=== PATIENT | female | born 1940 | race Two or more races ===

== ENCOUNTER → 2020-08-10 10:04 | Outpatient (BNVA) | payer MEDICARE, SELFPAY | PROVIDERS: PCP Internal Medicine; Visit Provider Urology | DX: N20.0 Calculus of kidney (principal) | CPT/HCPCS: 99212 ==

== ENCOUNTER 2020-10-02 07:57 | Outpatient (REF) | payer MEDICARE, SELFPAY ==
[2020-10-02 11:44] LABS: Hematocrit 38.5 % (37-47); Hemoglobin 12.5 g/dl (12.0-16.0); Mean Corpuscular HGB Conc 32.5 g/dl (31.0-35.0); Mean Corpuscular Hemoglobin 28.3 pg (27.0-33.0); Mean Corpuscular Volume 87.3 fL (80-98); Mean Platelet Volume 12.3 fL (9.4-12.3); Platelet Count 210 X10*3/uL (160-400); Red Blood Count 4.41 X10*6/uL (4.20-5.50); Red Cell Distribution Width 13.7 % (11.0-16.0); White Blood Count 4.7 X10*3/uL (4.8-10.8)
[2020-10-02 12:12] LABS: Alanine Aminotransferase 60 U/L (0-31); Albumin Level 4.1 g/dL (3.5-5.0); Alkaline Phosphatase 84 U/L (39-117); Anion Gap 12 (12-20); Aspartate Amino Transferase 38 U/L (5-31); Bilirubin Total 0.5 mg/dL (0.0-1.0); Blood Urea Nitrogen 19 mg/dL (9-16); Calcium 9.4 mg/dL (8.4-10.2); Carbon Dioxide 27 mmol/L (22-29); Chloride 105 mmol/L (96-108); Estimated Glomerular Filt Rate > 60; Glucose Random 93 mg/dL (60-115); Sodium 140 mmol/L (135-145)
[2020-10-02 12:16] LABS: Vitamin D 25-OH Total 41.6 ng/mL (>30)
== END 2020-10-02 07:58 | disposition home or self-care (01) ==
LOC: HO.HMGCLDS 07:57
PROVIDERS: PCP Internal Medicine; Visit Provider Internal Medicine
DX: J44.9 Chronic obstructive pulmonary disease, unspecified (principal); I10 Essential (primary) hypertension; E55.9 Vitamin D deficiency, unspecified
CPT/HCPCS: 36415; 80053; 82306; 85027

== ENCOUNTER 2021-02-20 09:57 | Outpatient (REF) | payer OTHER, SELFPAY ==
--- NOTE | ~2021-02-20 | XR_ITS ---
EXAMINATION: XR HAND, RIGHT CLINICAL INFORMATION: Pain COMPARISON: None TECHNIQUE: PA, lateral, and oblique views of the right thumb. FINDINGS: Bone alignment is normal. No fracture or dislocation is seen. There is mild arthritis at the IP, MCP and FCI joint of the thumb with small osteophytes. Soft tissues are unremarkable. XR/XR hand RT min 3V IMPRESSION: Mild arthritis.
== END 2021-02-20 09:58 | disposition home or self-care (01) ==
LOC: HO.HOSX 09:57
PROVIDERS: PCP Internal Medicine; Visit Provider Orthopaedic Surgery
DX: M65.311 Trigger thumb, right thumb (principal)
CPT/HCPCS: 20550; 73130; 99202; J1100

== ENCOUNTER 2021-03-18 08:41 | Outpatient (REF) | payer MEDICARE, SELFPAY ==
[2021-03-18 11:46] LABS: Hematocrit 39.6 % (37.0-47.0); Hemoglobin 12.8 g/dl (12.0-16.0); Mean Corpuscular HGB Conc 32.3 g/dl (31.0-35.0); Mean Corpuscular Hemoglobin 28.5 pg (27.0-33.0); Mean Corpuscular Volume 88.2 fL (80.0-98.0); Mean Platelet Volume 12.2 fL (9.4-12.3); Platelet Count 218 X10*3/uL (160-400); Red Blood Count 4.49 X10*6/uL (4.20-5.50); Red Cell Distribution Width 13.7 % (11.0-16.0); White Blood Count 5.6 X10*3/uL (4.8-10.8)
[2021-03-18 12:35] LABS: Alanine Aminotransferase 33 U/L (0-31); Alkaline Phosphatase 72 U/L (39-117); Anion Gap 13 (12-20); Aspartate Amino Transferase 27 U/L (5-31); Bilirubin Total 0.5 mg/dL (0.0-1.0); Blood Urea Nitrogen 16 mg/dL (9-16); Calcium 9.5 mg/dL (8.4-10.2); Carbon Dioxide 25 mmol/L (22-29); Chloride 107 mmol/L (96-108); Cholesterol 178 mg/dL; Estimated Glomerular Filt Rate > 60; Glucose Fasting 86 mg/dL (60-99); HDL Cholesterol 39 mg/dL; LDL Cholesterol Calculated 102 mg/dl; Sodium 141 mmol/L (135-145); Total Protein 6.8 g/dL (6.5-8.0); Triglycerides 186 mg/dL
== END 2021-03-18 08:42 | disposition home or self-care (01) ==
LOC: HO.HMGCLDS 08:41
PROVIDERS: PCP Internal Medicine; Visit Provider Internal Medicine
DX: J44.9 Chronic obstructive pulmonary disease, unspecified (principal); I10 Essential (primary) hypertension
CPT/HCPCS: 36415; 80053; 80061; 85027

== ENCOUNTER 2021-10-01 08:59 | Outpatient (REF) | payer OTHER, SELFPAY ==
[2021-10-01 11:29] LABS: MANUAL DIFF FLAG NO
[2021-10-01 11:52] LABS: Basophils Percent Auto 0.6 % (0-2); Eosinophils Absolute Auto 0.1 X10*3/uL (0.0-0.4); Eosinophils Percent Auto 2.6 % (0-4); Hematocrit 38.2 % (37.0-47.0); Hemoglobin 12.4 g/dl (12.0-16.0); Imm Gran Abs Auto 0.01 X10*3/uL (0.00-0.03); Imm Gran Pct Auto 0.2 % (0.0-0.4); Lymphocytes Absolute Auto 1.5 X10*3/uL (1.2-4.9); Lymphocytes Percent Auto 28.3 % (20-40); Mean Corpuscular HGB Conc 32.5 g/dl (31.0-35.0); Mean Corpuscular Hemoglobin 27.9 pg (27.0-33.0); Mean Corpuscular Volume 85.8 fL (80.0-98.0); Mean Platelet Volume 12.7 fL (9.4-12.3); Monocytes Absolute Auto 0.5 X10*3/uL (0.1-1.2); Monocytes Percent Auto 9.4 % (2-11); Neutrophils Absolute Auto 3.1 x10*3/uL (2.0-8.3); Neutrophils Percent Auto 58.9 % (45-73); Platelet Count 215 X10*3/uL (160-400); Red Blood Count 4.45 X10*6/uL (4.20-5.50); Red Cell Distribution Width 14.4 % (11.0-16.0); White Blood Count 5.3 X10*3/uL (4.8-10.8)
[2021-10-01 12:25] LABS: Vitamin D 25-OH Total 45.6 ng/mL (>30)
[2021-10-01 13:14] LABS: Alanine Aminotransferase 177 U/L (0-31); Albumin Level 4.2 g/dL (3.5-5.0); Alkaline Phosphatase 81 U/L (39-117); Anion Gap 11 (12-20); Aspartate Amino Transferase 121 U/L (5-31); Bilirubin Total 0.7 mg/dL (0.0-1.0); Blood Urea Nitrogen 26 mg/dL (9-16); Calcium 9.8 mg/dL (8.4-10.2); Carbon Dioxide 28 mmol/L (22-29); Chloride 106 mmol/L (96-108); Estimated Glomerular Filt Rate 56; Glucose Fasting 100 mg/dL (60-99); Potassium 4.2 mmol/L (3.3-5.1); Sodium 141 mmol/L (135-145); Total Protein 7.2 g/dL (6.5-8.0)
== END 2021-10-01 09:00 | disposition home or self-care (01) ==
LOC: HO.HMGCLDS 08:59
PROVIDERS: Visit Provider Internal Medicine
DX: I10 Essential (primary) hypertension (principal); J44.9 Chronic obstructive pulmonary disease, unspecified; E55.9 Vitamin D deficiency, unspecified
CPT/HCPCS: 36415; 80053; 82306; 85025

== ENCOUNTER → 2021-10-23 14:48 | Outpatient (BNVA) | payer OTHER, SELFPAY | PROVIDERS: PCP Internal Medicine; Visit Provider Urology | DX: N28.1 Cyst of kidney, acquired (principal) | CPT/HCPCS: Q3014 ==

== ENCOUNTER 2022-03-25 09:09 | Outpatient (REF) | payer OTHER, SELFPAY ==
[2022-03-25 12:35] LABS: Alanine Aminotransferase 36 U/L (0-31); Alkaline Phosphatase 75 U/L (39-117); Anion Gap 11 (12-20); Aspartate Amino Transferase 33 U/L (5-31); Bilirubin Total 0.7 mg/dL (0.0-1.0); Blood Urea Nitrogen 18 mg/dL (9-16); Calcium 9.5 mg/dL (8.4-10.2); Carbon Dioxide 28 mmol/L (22-29); Chloride 103 mmol/L (96-108); Cholesterol 149 mg/dL; Estimated Glomerular Filt Rate > 60; Glucose Fasting 93 mg/dL (60-99); HDL Cholesterol 49 mg/dL; LDL Cholesterol Calculated 77 mg/dl; Potassium 4.2 mmol/L (3.3-5.1); Sodium 138 mmol/L (135-145); Total Protein 6.8 g/dL (6.5-8.0); Triglycerides 118 mg/dL
== END 2022-03-25 09:10 | disposition home or self-care (01) ==
LOC: HO.HMGCLDS 09:09
PROVIDERS: PCP Internal Medicine; Visit Provider Internal Medicine
DX: I70.0 Atherosclerosis of aorta (principal)
CPT/HCPCS: 36415; 80053; 80061

== ENCOUNTER → 2022-04-22 09:18 | Outpatient (BNVA) | payer OTHER, SELFPAY | PROVIDERS: PCP Internal Medicine; Visit Provider Orthopaedic Surgery | DX: M65.322 Trigger finger, left index finger (principal) | CPT/HCPCS: 20550; 99212; J1100 ==

== ENCOUNTER 2022-10-16 08:28 | Outpatient (REF) | payer OTHER, SELFPAY | END 2022-10-16 08:29 | disposition home or self-care (01) | LOC: HO.HMGCLDS 08:28 | PROVIDERS: PCP Internal Medicine; Visit Provider Internal Medicine | DX: I10 Essential (primary) hypertension (principal); M48.061 Spinal stenosis, lumbar region without neurogenic claudication; E04.2 Nontoxic multinodular goiter | CPT/HCPCS: 36415; 80053; 80061; 85025 ==

== ENCOUNTER 2022-10-20 10:39 | Outpatient (AMB) | payer OTHER, SELFPAY ==
[2022-10-20 10:51] VITALS: BP 126/76; PULSE 65; O2SAT 98; BMI 29.2
--- NOTE | 2022-10-20 10:51 | MHC.PC.OV ---
Vital Signs 10/20/22 10:51 Height 5 ft 3 in Weight 165 lb BMI 29.2 BP 126/76 Blood Pressure Location Lt brachial Position Sitting Pulse 65 Pulse Source Pulse Oximeter Pulse Oximetry (%) 98 Oxygen Delivery Method Room Air Intake Visit Reasons: 6 month f/u Intake Note: Pt is here today for 6 months follow up visit. Allergies clonidine [CLONIDINE] Allergy (Unknown, Verified 10/20/22 10:53) UNKNOWN hydrochlorothiazide Allergy (Unknown, Verified 10/20/22 10:53) unknown naproxen [NAPROXEN] Allergy (Unknown, Verified 10/20/22 10:53) UNKNOWN penicillin V Allergy (Unknown, Verified 10/20/22 10:53) Itching Penicillins [PENICILLINS] Allergy (Unknown, Verified 10/20/22 10:53) itching Sulfa (Sulfonamide Antibiotics) [SULFA (SULFONAMIDE ANTIBIOTICS)] Allergy (Unknown, Verified 10/20/22 10:53) n/a nifedipine Adverse Reaction (Intermediate, Verified 10/20/22 11:28) leg swelling lisinopril [LISINOPRIL] Adverse Reaction (Unknown, Verified 10/20/22 10:53) Cough Medication List - Last Reconciled 10/20/22 by Leah Nazario MD aspirin 81 mg PO DAILY colchicine 0.6 mg PO BID compr.stocking,thigh,reg,large As directed estradiol 0.01%(0.1mg/gram) grams vaginal fluticasone propionate 50 mcg/actuation 1 spray intranasal DAILY hydrochlorothiazide 25 mg PO QAM lidocaine 5% 1 ea topical .QD nifedipine ER 30 mg PO DAILY olmesartan 40 mg PO DAILY pravastatin 40 mg PO DAILY triamcinolone acetonide 0.025% appl topical BID triamcinolone acetonide 0.1% 1 appl dental BID umeclidinium-vilanterol 62.5-25 mcg/actuation (Anoro Ellipta) 1 inh inhalation DAILY ursodiol 1,000 mg PO DAILY Tobacco use date assessed: 10/20/22 Fall risk assessment: No Falls in past year Last assessed Fall Risk: 10/20/22 Dental Screening Dental Screen Date: 10/20/22 Did you have a dental visit in the last 12 months?: Yes Did you have a dental problem in the last 6 months where you did not have access to dental care?: No Was dental information given to patient?: Patient has dentist HPI 6 month f/u HPI Details Pt presents for f/u HTN, HYPERLIPID, COPD stable on meds. Patient complains of lower extremity swelling worse at the end of the day from nifedipine. Patient has been wearing compression stockings and taking hydrochlorothiazide. 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 [facility] Medical History Abnormal mammogram Abnormal mammogram of left breast COPD (chronic obstructive pulmonary disease) Edema Gallbladder polyp HTN (hypertension) Lumbar spinal stenosis Microscopic hematuria Multinodular goiter Osteoarthritis of left hip Pain of right thumb Primary biliary cirrhosis Vitamin D deficiency Surgical History H/O colonoscopy No pertinent past surgical history Family History Father No problems noted. Mother No problems noted. Social History Housing: House Alcohol intake: never Patient Tobacco Use Status: Never used Tobacco e-Cigarette/Vaping Use: Never Used Second Hand Smoke Exposure: No service: No Current occupational status: retired Current occupation: rt hand Current occupational exposures/hazards: No Cognitive needs: No Hearing needs: No Vision needs: Yes Questionnaire PHQ-9 Over the last 2 weeks, how often have you been bothered by any of the following problems? 1. Little interest or pleasure in doing things: not at all 2. Feeling down, depressed, or hopeless: not at all 3. Trouble falling or staying asleep, or sleeping too much: not at all 4. Feeling tired or having little energy: not at all 5. Poor appetite or overeating: not at all 6. Feeling bad about yourself - or that you are a failure or have let yourself or your family down: not at all 7. Trouble concentrating on things, such as reading the newspaper or watching television: not at all 8. Moving or speaking so slowly that other people could have noticed. Or the opposite - being so fidgety or restless that you have been moving around a lot more than usual: not at all 9. Thoughts that you would be better off or of hurting yourself in some way: not at all Total score: 0 Depression Screening Interpretation: Negative Source: Developed by Drs. Jaime Alexandre, Francisco Fair and colleagues, with an educational laura from [employer]. Thrive Questionnaire Date Thrive assessed: 10/20/22 I am a: Patient What is your living situation today?: I have a steady place to live Within the past 12 months, did the food you bought not last and you didn't have the money to get more?: Never true Within the past 12 months, did you worry whether your food would run out before you got money to buy more?: Never true Do you have trouble paying for medicines?: No Do you have trouble getting transportation to medical appointments?: No Do you have trouble paying your heating and electricity bill?: No Do you have trouble taking care of your child, family member or friend?: No Do you have trouble with day-to-day activities such as bathing, preparing meals, shopping, managing finances, etc.?: No Are you currently unemployed and looking for a job?: No Are you interested in more education?: No Please select the resources that you would like help with: None Currently or been in a relationship where the following occur: no concerns reported AUDIT C Alcohol Use Questionnaire (AUDIT-C) 1. How often do you have a drink containing alcohol?: Never 3. How often do you have six or more drinks on one occasion?: Never Total Score: 0 MISTY-7 AMB Questionnaire MISTY-7 Date MISTY - 7 assessed: 10/20/22 Feeling nervous, anxious, or on edge: 0 = Not at all Not being able to stop or control worryin = Not at all Worrying too much about different things: 0 = Not at all Trouble relaxin = Not at all Being so restless that it is hard to sit still: 0 = Not at all Becoming easily annoyed or irritable: 0 = Not at all Feeling afraid as if something awful might happen: 0 = Not at all Total MISTY-7 score (0-4 normal; 5-9 mild; 10-14 moderate; 15-21 severe): 0 Source: Developed by Shannan Garcia Kurt Kroenke and colleagues, with an educational laura from [employer]. Review of Systems Const All systems reviewed & are unremarkable except as noted in HPI and below Reports no additional complaints Eyes Reports no additional complaints ENT Reports no additional complaints Card Reports no additional complaints Resp Reports no additional complaints GI Reports no additional complaints Reports no additional complaints Physical exam (Primary Care) Vital Signs: Last Vital Signs Pulse 65 10/20/22 10:51 BP 126/76 10/20/22 10:51 Pulse Ox 98 10/20/22 10:51 Oxygen Delivery Method Room Air 10/20/22 10:51 BMI result Body Mass Index 29.2 Tobacco/Smoking Status: Tobacco use Status Tobacco use date assessed 10/20/22 10/20/22 10:55 Patient Tobacco Use Status Never used Tobacco 10/20/22 10:55 e-Cigarette/Vaping Use Never Used 10/20/22 10:55 PHQ-9: PHQ-9 Score PHQ-9: Total score 0 10/20/22 10:57 Depression Screening Interpretation: Negative Thrive Assessment: Date of Thrive Assessment Date Thrive assessed 10/20/22 10/20/22 10:57 Currently or been in a relationship where the following occur: no concerns reported Const General: no acute distress HENMT Head: Yes normal to inspection General nose exam: Normal external nose present Mouth: Normal oral and palatal mucosa present Throat: Yes posterior oropharynx normal Eyes General: appearance normal, both eyes and all related structures Neck Neck: Yes no lymphadenopathy and Yes supple Resp Effort & Inspection: normal respiratory effort Auscultation: clear to auscultation bilaterally Cardio Rhythm: regular rhythm Heart sounds: S1 normal heart sound present and S2 normal heart sound present GI Inspection: Yes normal to inspection Palpation (GI): Soft to palpation Percussion: Yes normal to percussion Auscultation: normal bowel sounds Extrem Other: Trace pitting edema bilaterally Assessment and Plan Assessment & Plan (1) COPD (chronic obstructive pulmonary disease): Code(s): J44.9 - Chronic obstructive pulmonary disease, unspecified Plan: Continue Anoro (2) HTN (hypertension): Comment: BP < 130/80 Code(s): I10 - Essential (primary) hypertension Plan: Patient will stop nifedipine continue olmesartan and hydrochlorothiazide. She will follow-up in 1 month for blood pressure check (3) Primary biliary cirrhosis: Comment: f/u Code(s): K74.3 - Primary biliary cirrhosis Plan: Continue current medications Medications: New pravastatin 20 mg PO DAILY 90 tabs 1RF Refilled compr.stocking,thigh,reg,large As directed 4 ea 3RF class 20-30 R60.9 - Edema, unspecified Discontinued pravastatin Discontinued Reason: Doctor's Order 40 mg PO DAILY 90 tabs 3RF Coding Level of Care Code Est Pt Level 4 (36843) Diagnoses COPD (chronic obstructive pulmonary disease) J44.9 HTN (hypertension) I10 Primary biliary cirrhosis K74.3
== END 2022-10-20 11:39 | disposition home or self-care (01) ==
LOC: HO.HMGC 10:39
PROVIDERS: PCP Internal Medicine; Visit Provider Internal Medicine
DX: J44.9 Chronic obstructive pulmonary disease, unspecified (principal); I10 Essential (primary) hypertension; K74.3 Primary biliary cirrhosis
CPT/HCPCS: 99214

== ENCOUNTER 2022-10-24 11:32 | Outpatient (AMB) | payer OTHER, SELFPAY ==
--- NOTE | 2022-10-24 11:49 | MHC.OFFVIS ---
Intake Intake Visit Reasons: US Follow Up([facility]) Allergies clonidine [CLONIDINE] Allergy (Unknown, Verified 11/20/22 12:46) UNKNOWN naproxen [NAPROXEN] Allergy (Unknown, Verified 11/20/22 12:46) UNKNOWN penicillin V Allergy (Unknown, Verified 11/20/22 12:46) Itching Penicillins [PENICILLINS] Allergy (Unknown, Verified 11/20/22 12:46) itching Sulfa (Sulfonamide Antibiotics) [SULFA (SULFONAMIDE ANTIBIOTICS)] Allergy (Unknown, Verified 11/20/22 12:46) n/a nifedipine Adverse Reaction (Intermediate, Verified 11/20/22 12:46) leg swelling lisinopril [LISINOPRIL] Adverse Reaction (Unknown, Verified 11/20/22 12:46) Cough HPI HPI Comments History of Present Illness Details Jordana is a very pleasant [place] female. She is a patient of Dr. Reyes. She is seen for the following urologic conditions. - nephrolithiasis Stable imaging They would like to continue to follow yearly Nephrolithiasis Last stone 2018 Has been followed yearly Encourage fluid intake Imaging - 08/01 renal ultrasound [facility] 1.2 cm left cyst, no stones - 09/01 renal ultrasound [facility] stable 1.2 cm left renal cyst - 11/02 renal ultrasound [facility] mild right hydro stable cyst PFSH Medical History Abnormal mammogram Abnormal mammogram of left breast COPD (chronic obstructive pulmonary disease) Edema Gallbladder polyp HTN (hypertension) Lumbar spinal stenosis Microscopic hematuria Multinodular goiter Osteoarthritis of left hip Pain of right thumb Primary biliary cirrhosis Vitamin D deficiency Surgical History H/O colonoscopy No pertinent past surgical history Family History Father No problems noted. Mother No problems noted. Social History Housing: House Alcohol intake: never Patient Tobacco Use Status: Never used Tobacco e-Cigarette/Vaping Use: Never Used Second Hand Smoke Exposure: No service: No Current occupational status: retired Current occupation: rt hand Current occupational exposures/hazards: No Cognitive needs: No Hearing needs: No Vision needs: Yes Review of Systems Const Denies chills and Denies fever(s) Card Reports no additional complaints and Denies syncope Resp Denies cough GI Denies abdominal pain and Denies heartburn Reports as per HPI and Denies change in libido Neuro Denies syncope Psych Denies change in libido Endo Denies change in libido Physical Exam Const General: cooperative, healthy appearing, comfortable and no acute distress Orientation/consciousness: patient oriented x3 HEENT Face and sinus: Yes normal facial exam Mouth: moist mucous membranes Neck Neck: Yes normal visual inspection, Yes full ROM and Yes trachea midline Chest Chest palpation & inspection: normal inspection of the chest Resp Effort & Inspection: normal respiratory effort, able to speak in complete sentences and no respiratory distress GI Inspection: Yes normal to inspection Back/Spine/Pelvis Cervical Spine: normal cervical lordosis Thoracic/Lumbar Spine: thoracic and lumbar spine normal to inspection Skin General skin exam: no rashes or lesions noted Neuro General: patient oriented x3, gait normal, tone normal and moves all extremities Extrem General: Yes normal to inspection and Yes capillary refill normal Results AMB Urinalysis, Automated UA Leukoctes 0 Link/uL Last Edit by Quin Joel [facility] on 10/24/22 11:58 UA Nitrite Negative Last Edit by Quin Joel Sergei on 10/24/22 11:58 UA Urobilinogen 0.2 mg/dL Last Edit by Quin Joel [facility] on 10/24/22 11:58 UA Protein 0 mg/dL Last Edit by Quin Joel [facility] on 10/24/22 11:58 UA pH 6.5 Last Edit by Quin Joel [facility] on 10/24/22 11:58 UA Blood 0 Feliz/uL Last Edit by Quin Joel [facility] on 10/24/22 11:58 UA Specific [place] 1.015 Last Edit by BRANDON Rooney on 10/24/22 11:58 UA Ketone Negative Last Edit by Quin Joel [facility] on 10/24/22 11:58 UA Bilirubin 0 mg/dL Last Edit by Quin Joel [facility] on 10/24/22 11:58 UA Glucose 0 mg/dL Last Edit by Quin Joel [facility] on 10/24/22 11:58 Results Reviewed Results Reviewed: Laboratory Last Values Urine pH (Auto) 6.5 10/24/22 11:58 Specific [place] (Auto) 1.015 10/24/22 11:58 Urine Protein (Auto) 0 mg/dL 10/24/22 11:58 Glucose (UA)(Auto) 0 mg/dL 10/24/22 11:58 Urine Ketones (Auto) Negative 10/24/22 11:58 Urine Blood (Auto) 0 Feliz/uL 10/24/22 11:58 Urine Nitrite (Auto) Negative 10/24/22 11:58 Urine Bilirubin (Auto) 0 mg/dL 10/24/22 11:58 Urine Urobilinogen (Auto) 0.2 mg/dL 10/24/22 11:58 Leukocyte Esterase (Auto) 0 Link/uL 10/24/22 11:58 Assessment & Plan Assessment & Plan (1) Nephrolithiasis: Comment: Stone 2018 Code(s): N20.0 - Calculus of kidney Plan Yearly follow-up Orders: Orders AMB Urinalysis Automated 10/24/22 Z13.9 - Encounter for screening, unspecified US renal BI 364 Days N20.0 - Calculus of kidney Patient Instructions: Imaging studies, laboratory and physical exam results were discussed and reviewed in detail. No major barriers to patient understanding were identified. An opportunity to ask questions regarding the treatment plan was provided. All questions were answered. The patient expressed understanding and agreement with the above treatment plan. The patient is aware they should contact our office by phone for worsening of their current condition or the appearance of new urologic symptoms. Compliance is encouraged with any medications and followup testing that is ordered. It is a privilege to participate in the urologic care of your patient. If you have any questions or concerns regarding treatment for the above conditions, or other urologic issues, please do not hesitate to contact me. The office telephone contact is [phone]. This note is constructed using voice recognition software. While every effort has been made to ensure accuracy cloud services architect errors may have been included. Yours sincerely, Dr Delon Tovar MD, [facility] - Urology Providers of Expert, Compassionate Care for the Genitourinary System Coding Level of Care Code Est Pt Level 4 (67803) Diagnoses Nephrolithiasis N20.0
== END 2022-10-24 12:13 | disposition home or self-care (01) ==
PROVIDERS: PCP Internal Medicine; Visit Provider Urology
DX: N20.0 Calculus of kidney (principal)
CPT/HCPCS: 99214

== ENCOUNTER → 2022-10-24 11:32 | Outpatient (BNVA) | payer OTHER, SELFPAY | PROVIDERS: PCP Internal Medicine; Visit Provider Urology | DX: N20.0 Calculus of kidney (principal) | CPT/HCPCS: 99212 ==

== ENCOUNTER 2022-11-20 12:10 | Outpatient (AMB) | payer OTHER, SELFPAY ==
[2022-11-20 12:45] VITALS: BP 130/64; PULSE 60; O2SAT 95; BMI 29.4
--- NOTE | 2022-11-20 12:45 | MHC.PC.OV ---
Vital Signs 11/20/22 12:45 Height 5 ft 3 in Weight 166 lb BMI 29.4 BP 130/64 Blood Pressure Location Lt brachial Position Sitting Pulse 60 Pulse Source Pulse Oximeter Pulse Oximetry (%) 95 Oxygen Delivery Method Room Air Intake Visit Reasons: Annual PE Intake Note: Pt is here today for PE. Allergies clonidine [CLONIDINE] Allergy (Unknown, Verified 11/20/22 12:46) UNKNOWN naproxen [NAPROXEN] Allergy (Unknown, Verified 11/20/22 12:46) UNKNOWN penicillin V Allergy (Unknown, Verified 11/20/22 12:46) Itching Penicillins [PENICILLINS] Allergy (Unknown, Verified 11/20/22 12:46) itching Sulfa (Sulfonamide Antibiotics) [SULFA (SULFONAMIDE ANTIBIOTICS)] Allergy (Unknown, Verified 11/20/22 12:46) n/a nifedipine Adverse Reaction (Intermediate, Verified 11/20/22 12:46) leg swelling lisinopril [LISINOPRIL] Adverse Reaction (Unknown, Verified 11/20/22 12:46) Cough Medication List - Last Reconciled 11/20/22 by Leah Nazario MD aspirin 81 mg PO DAILY colchicine (gout) 0.6 mg PO BID compr.stocking,thigh,reg,large As directed estradiol 0.01%(0.1mg/gram) grams vaginal fluticasone propionate 50 mcg/actuation 1 spray intranasal DAILY hydrochlorothiazide 25 mg PO QAM lidocaine 5% 1 ea topical .QD olmesartan 40 mg PO DAILY pravastatin 20 mg PO DAILY triamcinolone acetonide 0.025% appl topical BID triamcinolone acetonide 0.1% 1 appl dental BID umeclidinium-vilanterol 62.5-25 mcg/actuation (Anoro Ellipta) 1 inh inhalation DAILY ursodiol 1,000 mg PO DAILY Tobacco use date assessed: 10/20/22 HPI Annual PE HPI Details Pt presents for PE. HTN and hyperlipid, are stable on meds [facility] Medical History Abnormal mammogram Abnormal mammogram of left breast COPD (chronic obstructive pulmonary disease) Edema Gallbladder polyp HTN (hypertension) Lumbar spinal stenosis Microscopic hematuria Multinodular goiter Osteoarthritis of left hip Pain of right thumb Primary biliary cirrhosis Vitamin D deficiency Surgical History H/O colonoscopy No pertinent past surgical history Family History Father No problems noted. Mother No problems noted. Social History Housing: House Alcohol intake: never Patient Tobacco Use Status: Never used Tobacco e-Cigarette/Vaping Use: Never Used Second Hand Smoke Exposure: No service: No Current occupational status: retired Current occupation: rt hand Current occupational exposures/hazards: No Cognitive needs: No Hearing needs: No Vision needs: Yes Questionnaire Thrive Questionnaire Date Thrive assessed: 10/20/22 MISTY-7 AMB Questionnaire MISTY-7 Date MISTY - 7 assessed: 10/20/22 Source: Developed by Drs. Jaime Alexandre, Shannan Farah, Francisco Garcia and colleagues, with an educational laura from [employer]. Review of Systems Const All systems reviewed & are unremarkable except as noted in HPI and below Reports no additional complaints Eyes Reports no additional complaints ENT Reports no additional complaints Card Reports no additional complaints Resp Reports no additional complaints GI Reports no additional complaints Reports no additional complaints Physical exam (Primary Care) Vital Signs: Last Vital Signs Pulse 60 11/20/22 12:45 BP 130/64 11/20/22 12:45 Pulse Ox 95 11/20/22 12:45 Oxygen Delivery Method Room Air 11/20/22 12:45 BMI result Body Mass Index 29.4 Tobacco/Smoking Status: Tobacco use Status Tobacco use date assessed 10/20/22 11/20/22 12:45 Patient Tobacco Use Status Never used Tobacco 11/20/22 12:45 e-Cigarette/Vaping Use Never Used 11/20/22 12:45 Thrive Assessment: Date of Thrive Assessment Date Thrive assessed 10/20/22 11/20/22 12:45 Const General: no acute distress HENMT Head: Yes normal to inspection Ears: hearing grossly normal bilaterally Face and sinus: Yes normal facial exam Mouth: Normal oral and palatal mucosa present Eyes General: appearance normal, both eyes and all related structures Neck Neck: Yes no lymphadenopathy and Yes supple Resp Effort & Inspection: normal respiratory effort Auscultation: clear to auscultation bilaterally Cardio Rhythm: regular rhythm Heart sounds: S1 normal heart sound present and S2 normal heart sound present GI Inspection: Yes normal to inspection Palpation (GI): Soft to palpation Percussion: Yes normal to percussion Auscultation: normal bowel sounds Assessment and Plan Assessment & Plan (1) HTN (hypertension): Comment: BP < 130/80 Code(s): I10 - Essential (primary) hypertension Plan: Continue current medications (2) Multinodular goiter: Comment: 3.6 cm isthmic nodule f/u with Dr. Toussaint s/p Radioactive Iodine 12/2017 Code(s): E04.2 - Nontoxic multinodular goiter Plan: Follow-up with endocrinology (3) Primary biliary cirrhosis: Comment: f/u Code(s): K74.3 - Primary biliary cirrhosis Plan: Follow-up with GI (4) Osteoarthritis of left hip: Comment: Advanced osteoarthritis on CT 11/02 Code(s): M16.12 - Unilateral primary osteoarthritis, left hip Plan: Follow-up with a pain management and orthopedic surgeon as needed Orders: Orders Comprehensive [place]. Panel Fast 6 Months E04.2 - Nontoxic multinodular goiter, I10 - Essential (primary) hypertension, K74.3 - Primary biliary cirrhosis, R73.9 - Hyperglycemia, unspecified Hemoglobin A1c 6 Months E04.2 - Nontoxic multinodular goiter, I10 - Essential (primary) hypertension, K74.3 - Primary biliary cirrhosis, R73.9 - Hyperglycemia, unspecified Lipid Panel 6 Months E04.2 - Nontoxic multinodular goiter, I10 - Essential (primary) hypertension, K74.3 - Primary biliary cirrhosis, R73.9 - Hyperglycemia, unspecified Complete Blood Count Auto Diff 6 Months E04.2 - Nontoxic multinodular goiter, I10 - Essential (primary) hypertension, K74.3 - Primary biliary cirrhosis, R73.9 - Hyperglycemia, unspecified Coding Level of Care Code Est Pt Prev Care >65y(27705) Diagnoses HTN (hypertension) I10 Multinodular goiter E04.2 Primary biliary cirrhosis K74.3 Osteoarthritis of left hip M16.12
== END 2022-11-20 13:36 | disposition home or self-care (01) ==
PROVIDERS: PCP Internal Medicine; Visit Provider Internal Medicine
DX: Z00.00 Encounter for general adult medical examination without abnormal findings (principal); I10 Essential (primary) hypertension; E04.2 Nontoxic multinodular goiter; K74.3 Primary biliary cirrhosis; M16.12 Unilateral primary osteoarthritis, left hip
CPT/HCPCS: 99397

== ENCOUNTER 2023-02-20 13:38 | Outpatient (AMB) | payer OTHER, SELFPAY ==
--- NOTE | 2023-02-20 14:10 | A.OFFPC_ITS ---
Vital Signs 02/20/23 14:11 Height 5 ft 3 in Weight 174 lb BMI 30.8 BP 150/90 H Blood Pressure Location Rt brachial Position Sitting Pulse 78 Pulse Source Pulse Oximeter Pulse Oximetry (%) 95 Intake Visit Reasons: Follow up Intake Note: pt is here for follow up Allergies clonidine [CLONIDINE] Allergy (Unknown, Verified 11/20/22 12:46) UNKNOWN naproxen [NAPROXEN] Allergy (Unknown, Verified 11/20/22 12:46) UNKNOWN penicillin V Allergy (Unknown, Verified 11/20/22 12:46) Itching Penicillins [PENICILLINS] Allergy (Unknown, Verified 11/20/22 12:46) itching Sulfa (Sulfonamide Antibiotics) [SULFA (SULFONAMIDE ANTIBIOTICS)] Allergy (Unknown, Verified 11/20/22 12:46) n/a nifedipine Adverse Reaction (Intermediate, Verified 11/20/22 12:46) leg swelling lisinopril [LISINOPRIL] Adverse Reaction (Unknown, Verified 11/20/22 12:46) Cough Medication List - Last Reconciled 02/20/23 by Leah Nazario MD aspirin 81 mg PO DAILY colchicine (gout) 0.6 mg PO BID compr.stocking,thigh,reg,x-lrg As directed estradiol 0.01%(0.1mg/gram) grams vaginal fluticasone propionate 50 mcg/actuation 1 spray intranasal DAILY hydrochlorothiazide 25 mg PO QAM levothyroxine 25 mcg PO DAILY lidocaine 5% 1 ea topical .QD olmesartan 40 mg PO DAILY pravastatin 20 mg PO DAILY triamcinolone acetonide 0.025% appl topical BID triamcinolone acetonide 0.1% 1 appl dental BID umeclidinium-vilanterol 62.5-25 mcg/actuation (Anoro Ellipta) 1 inh inhalation DAILY ursodiol 1,000 mg PO DAILY Tobacco use date assessed: 10/20/22 Dental Screening Dental Screen Date: 02/20/23 Did you have a dental visit in the last 12 months?: Yes Did you have a dental problem in the last 6 months where you did not have access to dental care?: No Was dental information given to patient?: Patient has dentist HPI Follow up HPI Details Patient presents for the follow-up on hypertension. She stop taking nifedipine because of chronic lower extremity swelling. Patient follows up with [facility] for thyroid nodules and was started on levothyroxine a week ago. COPD is controlled on Anoro. [facility] Medical History Abnormal mammogram of left breast Pain of right thumb Edema Abnormal mammogram Primary biliary cirrhosis Lumbar spinal stenosis Osteoarthritis of left hip Vitamin D deficiency Gallbladder polyp Microscopic hematuria Multinodular goiter COPD (chronic obstructive pulmonary disease) HTN (hypertension) Surgical History H/O colonoscopy No pertinent past surgical history Family History Father No problems noted. Mother No problems noted. Social History Housing: House Alcohol intake: never Patient Tobacco Use Status: Never used Tobacco e-Cigarette/Vaping Use: Never Used Second Hand Smoke Exposure: No service: No Current occupational status: retired Current occupation: rt hand Current occupational exposures/hazards: No Cognitive needs: No Hearing needs: No Vision needs: Yes Questionnaire Thrive Questionnaire Date Thrive assessed: 10/20/22 MISTY-7 AMB Questionnaire MISTY-7 Date MISTY - 7 assessed: 10/20/22 Source: Developed by Drs. Jaime Alexandre, Shannan Farah, Francisco Garcia and colleagues, with an educational laura from [employer]. Review of Systems Const All systems reviewed & are unremarkable except as noted in HPI and below Reports no additional complaints Eyes Reports no additional complaints ENT Reports no additional complaints Card Reports no additional complaints Resp Reports no additional complaints GI Reports no additional complaints Reports no additional complaints Physical exam (Primary Care) Vital Signs: Last Vital Signs Pulse 78 02/20/23 14:11 BP 150/90 H 02/20/23 14:11 Pulse Ox 95 02/20/23 14:11 BMI result Body Mass Index 30.8 Tobacco/Smoking Status: Tobacco use Status Tobacco use date assessed 10/20/22 02/20/23 14:14 Patient Tobacco Use Status Never used Tobacco 02/20/23 14:14 e-Cigarette/Vaping Use Never Used 02/20/23 14:14 Thrive Assessment: Date of Thrive Assessment Date Thrive assessed 10/20/22 02/20/23 14:14 Const General: no acute distress HENMT Head: Yes normal to inspection Ears: hearing grossly normal bilaterally Eyes General: appearance normal, both eyes and all related structures Neck Neck: Yes supple Resp Effort & Inspection: normal respiratory effort Auscultation: clear to auscultation bilaterally Cardio Rhythm: regular rhythm Heart sounds: S1 normal heart sound present and S2 normal heart sound present GI Palpation (GI): Soft to palpation Extrem Other: 1 + pitting edema b/l Assessment and Plan Assessment & Plan (1) COPD (chronic obstructive pulmonary disease): Code(s): J44.9 - Chronic obstructive pulmonary disease, unspecified Plan: cont Anoro (2) HTN (hypertension): Comment: BP < 130/80 Code(s): I10 - Essential (primary) hypertension Plan: change HCTZ to Dyazide, check BMP in 1 week, f/u 6 weeks for BP CHECK (3) Primary biliary cirrhosis: Comment: f/u Code(s): K74.3 - Primary biliary cirrhosis Plan: cont meds (4) Multinodular goiter: Comment: 3.6 cm isthmic nodule f/u with Dr. Toussaint s/p Radioactive Iodine 12/2017 Code(s): E04.2 - Nontoxic multinodular goiter Plan: f/u with endo Medications: New triamterene-hydrochlorothiazid 37.5-25 mg 1 tab PO DAILY 90 tabs 0RF Coding Level of Care Code Est Pt Level 4 (65050) Diagnoses COPD (chronic obstructive pulmonary disease) J44.9 HTN (hypertension) I10 Primary biliary cirrhosis K74.3 Multinodular goiter E04.2
[2023-02-20 14:11] VITALS: BP 150/90; PULSE 78; O2SAT 95; BMI 30.8
== END 2023-02-20 14:41 | disposition home or self-care (01) ==
PROVIDERS: PCP Internal Medicine; Visit Provider Internal Medicine
DX: J44.9 Chronic obstructive pulmonary disease, unspecified (principal); I10 Essential (primary) hypertension; K74.3 Primary biliary cirrhosis; E04.2 Nontoxic multinodular goiter
CPT/HCPCS: 99214

== ENCOUNTER 2023-03-30 08:45 | Outpatient (REF) | payer OTHER, SELFPAY ==
[2023-03-30 12:09] LABS: Anion Gap 11 (12-20); Blood Urea Nitrogen 16 mg/dL (9-16); Calcium 9.3 mg/dL (8.4-10.2); Carbon Dioxide 27 mmol/L (22-29); Chloride 102 mmol/L (96-108); Estimated Glomerular Filt Rate > 60; Glucose Random 94 mg/dL (60-115); Potassium 3.8 mmol/L (3.3-5.1); Sodium 136 mmol/L (135-145)
== END 2023-03-30 08:46 | disposition home or self-care (01) ==
LOC: HO.HMGCLDS 08:45
PROVIDERS: PCP Internal Medicine; Visit Provider Internal Medicine
DX: I10 Essential (primary) hypertension (principal)
CPT/HCPCS: 36415; 80048

== ENCOUNTER 2023-04-03 10:38 | Outpatient (AMB) | payer OTHER, SELFPAY ==
[2023-04-03 10:42] VITALS: BP 130/74; PULSE 70; O2SAT 96; BMI 31.4
--- NOTE | 2023-04-03 10:42 | MHC.PC.OV ---
Vital Signs 04/03/23 10:42 Height 5 ft 3 in Weight 177 lb BMI 31.4 BP 130/74 Blood Pressure Location Rt brachial Position Sitting Pulse 70 Pulse Source Pulse Oximeter Pulse Oximetry (%) 96 Intake Visit Reasons: 6 week follow up Intake Note: pt is here for 6 week follow up [employer] Developer Required: No Accompanied by: Self / Same As Patient Allergies clonidine [CLONIDINE] Allergy (Unknown, Verified 04/03/23 10:45) UNKNOWN naproxen [NAPROXEN] Allergy (Unknown, Verified 04/03/23 10:45) UNKNOWN penicillin V Allergy (Unknown, Verified 04/03/23 10:45) Itching Penicillins [PENICILLINS] Allergy (Unknown, Verified 04/03/23 10:45) itching Sulfa (Sulfonamide Antibiotics) [SULFA (SULFONAMIDE ANTIBIOTICS)] Allergy (Unknown, Verified 04/03/23 10:45) n/a nifedipine Adverse Reaction (Intermediate, Verified 04/03/23 10:45) leg swelling triamterene Adverse Reaction (Intermediate, Verified 04/03/23 11:28) Fainting lisinopril [LISINOPRIL] Adverse Reaction (Unknown, Verified 04/03/23 10:45) Cough Tobacco use date assessed: 10/20/22 Fall risk assessment: No Falls in past year Last assessed Fall Risk: 04/03/23 Dental Screening Dental Screen Date: 04/03/23 Did you have a dental visit in the last 12 months?: Yes Did you have a dental problem in the last 6 months where you did not have access to dental care?: No Was dental information given to patient?: Patient has dentist HPI 6 week follow up HPI Details PATIENT PRESENTS FOR THE FOLLOW-UP ON HYPERTENSION AND COPD, STABLE ON CURRENT MEDICATIONS. Patient is going to [place] in July for 4 months. [facility] Medical History Abnormal mammogram of left breast Pain of right thumb Edema Abnormal mammogram Primary biliary cirrhosis Lumbar spinal stenosis Osteoarthritis of left hip Vitamin D deficiency Gallbladder polyp Microscopic hematuria Multinodular goiter COPD (chronic obstructive pulmonary disease) HTN (hypertension) Surgical History H/O colonoscopy No pertinent past surgical history Family History Father No problems noted. Mother No problems noted. Social History Housing: House Alcohol intake: never Patient Tobacco Use Status: Never used Tobacco e-Cigarette/Vaping Use: Never Used Second Hand Smoke Exposure: No service: No Current occupational status: retired Current occupation: rt hand Current occupational exposures/hazards: No Cognitive needs: No Hearing needs: No Vision needs: Yes Questionnaire Thrive Questionnaire Date Thrive assessed: 10/20/22 MISTY-7 AMB Questionnaire MISTY-7 Date MISTY - 7 assessed: 10/20/22 Source: Developed by Drs. Jaime Alexandre, Shannan Farah, Francisco Garcia and colleagues, with an educational laura from [employer]. Review of Systems Const All systems reviewed & are unremarkable except as noted in HPI and below Reports no additional complaints Eyes Reports no additional complaints ENT Reports no additional complaints Card Reports no additional complaints Resp Reports no additional complaints GI Reports no additional complaints Physical exam (Primary Care) Vital Signs: Last Vital Signs Pulse 70 04/03/23 10:42 BP 140/74 H 04/03/23 10:42 Pulse Ox 96 04/03/23 10:42 BMI result Body Mass Index 31.4 Tobacco/Smoking Status: Tobacco use Status Tobacco use date assessed 10/20/22 04/03/23 10:43 Patient Tobacco Use Status Never used Tobacco 04/03/23 10:43 e-Cigarette/Vaping Use Never Used 04/03/23 10:43 Thrive Assessment: Date of Thrive Assessment Date Thrive assessed 10/20/22 04/03/23 10:43 Const General: no acute distress HENMT Head: Yes normal to inspection Ears: hearing grossly normal bilaterally Face and sinus: Yes normal facial exam Resp Effort & Inspection: normal respiratory effort Auscultation: clear to auscultation bilaterally Cardio Rhythm: regular rhythm Heart sounds: S1 normal heart sound present and S2 normal heart sound present Assessment and Plan Assessment & Plan (1) Postmenopausal: Code(s): Z78.0 - Asymptomatic menopausal state Plan: schedule DEXA (2) Abdominal aortic atherosclerosis: Comment: on statin Code(s): I70.0 - Atherosclerosis of aorta Plan: Continue statin (3) HTN (hypertension): Comment: BP < 130/80 Code(s): I10 - Essential (primary) hypertension Plan: Continue current medications (4) COPD (chronic obstructive pulmonary disease): Code(s): J44.9 - Chronic obstructive pulmonary disease, unspecified Plan: Continue Anoro Coding Level of Care Code Est Pt Level 4 (18580) Diagnoses Postmenopausal Z78.0 Abdominal aortic atherosclerosis I70.0 HTN (hypertension) I10 COPD (chronic obstructive pulmonary disease) J44.9
== END 2023-04-03 11:46 | disposition home or self-care (01) ==
PROVIDERS: PCP Internal Medicine; Visit Provider Internal Medicine
DX: Z78.0 Asymptomatic menopausal state (principal); I70.0 Atherosclerosis of aorta; I10 Essential (primary) hypertension; J44.9 Chronic obstructive pulmonary disease, unspecified
CPT/HCPCS: 99214

== ENCOUNTER 2023-05-13 08:12 | Outpatient (REF) | payer OTHER, SELFPAY ==
--- NOTE | ~2023-05-13 | MM_ITS ---
EXAMINATION: BONE DENSITOMETRY CLINICAL INDICATION: Asymptomatic menopausal state. COMPARISON: This is the patient's baseline examination. TECHNIQUE: Using a [employer] DXA System (software version: 13.1) manufactured by [employer], dual-energy x-ray absorptiometry was performed of the lumbar spine and left hip. The images are of good technical quality. Summary results are attached. FINDINGS: AP SPINE L1-L2 (excluding L3 and L4): The data of L1-L4 has been changed to exclude the L3 and L4 vertebral bodies, because degenerative sclerosis at these levels may cause overestimation of lumbar spine density. BMD 0.906 g/cm2, Z-score -0.8, T-score -2.2, osteopenia. LEFT FEMUR, NECK: BMD 1.021 g/cm2, Z-score 1.9, T-score -0.1, normal. LEFT FEMUR, TOTAL: BMD 1.003 g/cm2, Z-score 1.8, T-score 0.0, normal. IDENTIFIED RISK FACTORS: Height loss. Secondary osteoporosis (chronic liver disease). Thiazide. Menopause. HISTORY OF FRACTURE: None listed. MEDICATIONS: Vitamin D. ERT/SERMS. MM/XR DEXA axial skeleton IMPRESSION: 1. DIAGNOSIS: Osteopenia based on the lowest T-score value of -2.2 in the lumbar spine applying World Health Organization criteria. 2. 10-YEAR FRACTURE RISK PREDICTION, FRAX: Not performed in this patient on estrogen or bone building treatments. 3. Treatment Recommendations: NOF guidelines recommend consideration for treatment in postmenopausal women and men age 50 and older presenting with the following: -A hip or vertebral (clinical or morphometric) fracture. -T-score less than or equal to -2.5 at the femoral neck or spine after appropriate evaluation to exclude secondary causes. -Low bone mass at the hip or spine and a 10-year fracture probability by FRAX of greater than or equal to 3% for hip fracture or greater than or equal to 20% for major osteoporotic fracture based on the [place] adapted WHO algorithm. 4. Other Recommendations: All treatment decisions require clinical judgment and consideration of individual patient factors, including patient preferences, comorbidities, previous drug use, risk factors not captured in the FRAX model (e.g. frailty, falls, vitamin D deficiency, increased bone turnover, interval significant decline in bone density) and possible under or overestimation of fracture risk by FRAX. Additional medical evaluation for secondary cause of low bone mineral density may be appropriate. FUTURE SCAN RECOMMENDATION: People with diagnosed cases of osteoporosis or at high risk for fracture should have regular bone mineral density tests. For patients eligible for Medicare, routine testing is allowed once every 2 years. The testing frequency can be increased to one year for patients who have rapidly progressing disease, those who are receiving or discontinuing medical therapy to restore bone mass, or have additional risk factors.
== END 2023-05-13 08:13 | disposition home or self-care (01) ==
LOC: HO.MAMMO 08:12
PROVIDERS: PCP Internal Medicine; Visit Provider Internal Medicine
DX: Z13.820 Encounter for screening for osteoporosis (principal); Z78.0 Asymptomatic menopausal state
CPT/HCPCS: 77080

== ENCOUNTER 2023-05-19 09:01 | Outpatient (REF) | payer OTHER, SELFPAY ==
[2023-05-19 11:12] LABS: MANUAL DIFF FLAG NO
[2023-05-19 11:26] LABS: Basophils Percent Auto 0.5 % (0-2); Eosinophils Absolute Auto 0.2 X10*3/uL (0.0-0.4); Eosinophils Percent Auto 2.4 % (0-4); Hematocrit 38.2 % (37.0-47.0); Hemoglobin 12.8 g/dl (12.0-16.0); Imm Gran Abs Auto 0.01 X10*3/uL (0.00-0.03); Imm Gran Pct Auto 0.2 % (0.0-0.4); Lymphocytes Absolute Auto 1.5 X10*3/uL (1.2-4.9); Lymphocytes Percent Auto 24.7 % (20-40); Mean Corpuscular HGB Conc 33.5 g/dl (31.0-35.0); Mean Corpuscular Hemoglobin 28.4 pg (27.0-33.0); Mean Corpuscular Volume 84.9 fL (80.0-98.0); Mean Platelet Volume 11.6 fL (9.4-12.3); Monocytes Absolute Auto 0.5 X10*3/uL (0.1-1.2); Monocytes Percent Auto 8.6 % (2-11); Neutrophils Absolute Auto 3.9 x10*3/uL (2.0-8.3); Neutrophils Percent Auto 63.6 % (45-73); Platelet Count 200 X10*3/uL (160-400); Red Cell Distribution Width 13.5 % (11.0-16.0); White Blood Count 6.2 X10*3/uL (4.8-10.8)
[2023-05-19 11:44] LABS: Estimated Average Glucose 108 mg/dL; Hemoglobin A1c % 5.4 % (<6.0)
[2023-05-19 11:55] LABS: Alanine Aminotransferase 30 U/L (0-31); Albumin Level 3.9 g/dL (3.5-5.0); Alkaline Phosphatase 67 U/L (39-117); Anion Gap 11 (12-20); Aspartate Amino Transferase 28 U/L (5-31); Bilirubin Total 0.6 mg/dL (0.0-1.0); Blood Urea Nitrogen 19 mg/dL (9-16); Calcium 9.3 mg/dL (8.4-10.2); Carbon Dioxide 29 mmol/L (22-29); Chloride 102 mmol/L (96-108); Cholesterol 149 mg/dL (<200); Estimated Glomerular Filt Rate > 60; Glucose Fasting 95 mg/dL (60-99); HDL Cholesterol 46 mg/dL (>40); LDL Cholesterol Calculated 78 mg/dL (<100); Potassium 3.8 mmol/L (3.3-5.1); Sodium 138 mmol/L (135-145); Total Protein 6.9 g/dL (6.5-8.0); Triglycerides 128 mg/dL (<150)
== END 2023-05-19 09:02 | disposition home or self-care (01) ==
LOC: HO.HMGCLDS 09:01
PROVIDERS: PCP Internal Medicine; Visit Provider Internal Medicine
DX: E04.2 Nontoxic multinodular goiter (principal); K74.3 Primary biliary cirrhosis; R73.9 Hyperglycemia, unspecified; I10 Essential (primary) hypertension
CPT/HCPCS: 36415; 80053; 80061; 83036; 85025

== ENCOUNTER 2023-05-25 11:33 | Outpatient (AMB) | payer OTHER, SELFPAY ==
[2023-05-25 11:58] VITALS: BP 130/80; PULSE 63; O2SAT 94; BMI 31.2
--- NOTE | 2023-05-25 11:58 | A.OFFPC_ITS ---
Vital Signs 05/25/23 11:58 Height 5 ft 3 in Weight 176 lb 6 oz BMI 31.2 BP 130/80 Blood Pressure Location Lt brachial Position Sitting Pulse 63 Pulse Source Pulse Oximeter Pulse Oximetry (%) 94 Oxygen Delivery Method Room Air Intake Visit Reasons: 6 month fu Intake Note: Pt is here to follow up for HTN Allergies clonidine [CLONIDINE] Allergy (Unknown, Verified 05/25/23 12:07) UNKNOWN naproxen [NAPROXEN] Allergy (Unknown, Verified 05/25/23 12:07) UNKNOWN penicillin V Allergy (Unknown, Verified 05/25/23 12:07) Itching Penicillins [PENICILLINS] Allergy (Unknown, Verified 05/25/23 12:07) itching Sulfa (Sulfonamide Antibiotics) [SULFA (SULFONAMIDE ANTIBIOTICS)] Allergy (Unknown, Verified 05/25/23 12:07) n/a nifedipine Adverse Reaction (Intermediate, Verified 05/25/23 12:07) leg swelling triamterene Adverse Reaction (Intermediate, Verified 05/25/23 12:07) Fainting lisinopril [LISINOPRIL] Adverse Reaction (Unknown, Verified 05/25/23 12:07) Cough Medication List - Last Reconciled 05/25/23 by Leah Nazario MD aspirin 81 mg PO DAILY colchicine 0.6 mg PO BID compr.stocking,thigh,reg,x-lrg As directed estradiol 0.01%(0.1mg/gram) grams vaginal fluticasone propionate 50 mcg/actuation 1 spray intranasal DAILY hydrochlorothiazide 25 mg PO DAILY levothyroxine 25 mcg PO DAILY lidocaine 5% 1 ea topical .QD olmesartan 40 mg PO DAILY pravastatin 20 mg PO DAILY triamcinolone acetonide 0.025% appl topical BID triamcinolone acetonide 0.1% 1 appl dental BID umeclidinium-vilanterol 62.5-25 mcg/actuation (Anoro Ellipta) 1 inh inhalation DAILY ursodiol 1,000 mg PO DAILY Tobacco use date assessed: 05/25/23 HPI 6 month fu HPI Details Pt presents for f/u HTN, hyperlipid, hypothyroid. She complains of chronic cough and postnasal drip. Patient denies PND orthopnea shortness for breath pleurisy sputum production fever chills or night sweats. She has been using Anoro regularly and Flonase once or twice a week. [facility] Medical History Abnormal mammogram of left breast Pain of right thumb Edema Abnormal mammogram Primary biliary cirrhosis Lumbar spinal stenosis Osteoarthritis of left hip Vitamin D deficiency Gallbladder polyp Microscopic hematuria Multinodular goiter COPD (chronic obstructive pulmonary disease) HTN (hypertension) Surgical History H/O colonoscopy No pertinent past surgical history Family History Father No problems noted. Mother No problems noted. Social History Housing: House Alcohol intake: never Patient Tobacco Use Status: Never used Tobacco e-Cigarette/Vaping Use: Never Used Second Hand Smoke Exposure: No service: No Current occupational status: retired Current occupation: rt hand Current occupational exposures/hazards: No Cognitive needs: No Hearing needs: No Vision needs: Yes Questionnaire Thrive Questionnaire Date Thrive assessed: 10/20/22 MISTY-7 AMB Questionnaire MISTY-7 Date MISTY - 7 assessed: 10/20/22 Source: Developed by Drs. Jaime Alexandre, Shannan Farah, Francisco Garcia and colleagues, with an educational laura from [employer]. Review of Systems Const All systems reviewed & are unremarkable except as noted in HPI and below Reports no additional complaints Eyes Reports no additional complaints ENT Reports no additional complaints Card Reports no additional complaints Resp Reports no additional complaints GI Reports no additional complaints Reports no additional complaints Physical exam (Primary Care) Vital Signs: Last Vital Signs Pulse 63 05/25/23 11:58 BP 148/86 H 05/25/23 11:58 Pulse Ox 94 05/25/23 11:58 Oxygen Delivery Method Room Air 05/25/23 11:58 BMI result Body Mass Index 31.2 Tobacco/Smoking Status: Tobacco use Status Tobacco use date assessed 05/25/23 05/25/23 12:09 Patient Tobacco Use Status Never used Tobacco 05/25/23 11:59 e-Cigarette/Vaping Use Never Used 05/25/23 11:59 Thrive Assessment: Date of Thrive Assessment Date Thrive assessed 10/20/22 05/25/23 11:59 Const General: no acute distress HENMT Face and sinus: No Facial tenderness on exam of face and sinuses Mouth: Normal oral and palatal mucosa present Throat: Yes postnasal drainage Eyes General: appearance normal, both eyes and all related structures Neck Neck: Yes no lymphadenopathy and Yes supple Resp Effort & Inspection: normal respiratory effort Auscultation: clear to auscultation bilaterally Cardio Rhythm: regular rhythm Heart sounds: S1 normal heart sound present and S2 normal heart sound present GI Inspection: Yes normal to inspection Palpation (GI): Soft to palpation Percussion: Yes normal to percussion Assessment and Plan Assessment & Plan (1) Cough: Code(s): R05.9 - Cough, unspecified Plan: For chronic cough check chest x-ray, continue Anoro and patient was advised to use Flonase at least every other day and take Claritin as needed for chronic postnasal drip. (2) HTN (hypertension): Comment: BP < 130/80 Code(s): I10 - Essential (primary) hypertension Plan: Continue current medications (3) Primary biliary cirrhosis: Comment: f/u Code(s): K74.3 - Primary biliary cirrhosis Plan: Follow-up with GI (4) Hypothyroid: Code(s): E03.9 - Hypothyroidism, unspecified Plan: Continue levothyroxine return in 6 months with a fasting labs before (5) Vitamin D deficiency: Code(s): E55.9 - Vitamin D deficiency, unspecified Orders: Orders XR chest 1V Today R05.9 - Cough, unspecified TSH reflex Free T4 6 Months E03.9 - Hypothyroidism, unspecified, E55.9 - Vitamin D deficiency, unspecified, I10 - Essential (primary) hypertension Comprehensive [place]. Panel Fast 6 Months E03.9 - Hypothyroidism, unspecified, E55.9 - Vitamin D deficiency, unspecified, I10 - Essential (primary) hypertension Lipid Panel 6 Months E03.9 - Hypothyroidism, unspecified, E55.9 - Vitamin D deficiency, unspecified, I10 - Essential (primary) hypertension Vitamin D 25-OH Total 6 Months E03.9 - Hypothyroidism, unspecified, E55.9 - Vitamin D deficiency, unspecified, I10 - Essential (primary) hypertension Medications: New hydrocortisone 2.5% 1 appl ME BID-QID PRN 30 grams 3RF hemorrhoids Refilled pravastatin 20 mg PO DAILY 90 tabs 3RF olmesartan 40 mg PO DAILY 90 tabs 3RF I10 - Essential (primary) hypertension Coding Level of Care Code Est Pt Level 4 (68494) Diagnoses Cough R05.9 HTN (hypertension) I10 Primary biliary cirrhosis K74.3 Hypothyroid E03.9 Vitamin D deficiency E55.9
== END 2023-05-25 13:09 | disposition home or self-care (01) ==
PROVIDERS: PCP Internal Medicine; Visit Provider Internal Medicine
DX: R05.9 Cough, unspecified (principal); I10 Essential (primary) hypertension; K74.3 Primary biliary cirrhosis; E03.9 Hypothyroidism, unspecified; E55.9 Vitamin D deficiency, unspecified
CPT/HCPCS: 99214

== ENCOUNTER 2023-05-25 12:55 | Outpatient (REF) | payer OTHER, SELFPAY ==
--- NOTE | ~2023-05-25 | XR_ITS ---
EXAMINATION: XR CHEST CLINICAL INFORMATION: Cough. COMPARISON: No prior dedicated imaging of the chest. Plain film of the abdomen dated 05/19/2018. TECHNIQUE: 2 views of the chest were obtained. FINDINGS: There is no acute radiographic finding. Minimal bibasilar linear densities suggest atelectasis and/or a fibrotic streaks. No focal infiltrate is appreciated. An approximately 3 cm, smooth, round right lower lobe lung mass with approximately 1.7 cm central calcification appears unchanged compared with 05/19/2018. No effusion or pneumothorax identified. The cardiac silhouette is suboptimally evaluated. The aorta is uncoiled and mildly atherosclerotic, suggesting hypertension. XR/XR chest 2V IMPRESSION: No acute finding. An approximately 3 cm, smooth, round right lower lobe lung mass with approximately 1.7 cm central calcification appears unchanged compared with 05/19/2018. Differential diagnosis includes, but is not limited to, benign hamartoma, calcified granuloma, etc.
== END 2023-05-25 12:56 | disposition home or self-care (01) ==
LOC: HO.HMGCX 12:55
PROVIDERS: PCP Internal Medicine; Visit Provider Internal Medicine
DX: R05.9 Cough, unspecified (principal)
CPT/HCPCS: 71046

== ENCOUNTER 2023-11-23 07:22 | Outpatient (REF) | payer OTHER, SELFPAY ==
[2023-11-23 10:22] LABS: Alanine Aminotransferase 31 U/L (0-31); Albumin Level 3.9 g/dL (3.5-5.0); Alkaline Phosphatase 71 U/L (39-117); Anion Gap 11 (12-20); Aspartate Amino Transferase 32 U/L (5-31); Bilirubin Total 0.5 mg/dL (0.0-1.0); Blood Urea Nitrogen 18 mg/dL (9-16); Calcium 9.2 mg/dL (8.4-10.2); Carbon Dioxide 30 mmol/L (22-29); Chloride 102 mmol/L (96-108); Cholesterol 134 mg/dL (<200); Estimated Glomerular Filt Rate > 60; Glucose Fasting 100 mg/dL (60-99); HDL Cholesterol 44 mg/dL (>40); LDL Cholesterol Calculated 77 mg/dL (<100); Potassium 3.5 mmol/L (3.3-5.1); Sodium 139 mmol/L (135-145); Total Protein 6.8 g/dL (6.5-8.0); Triglycerides 68 mg/dL (<150)
[2023-11-23 10:41] LABS: Vitamin D 25-OH Total 67.5 ng/mL (>30)
[2023-11-23 11:29] LABS: Free T4 (Free Thyroxine) 0.79 ng/dL (0.71-1.85)
== END 2023-11-23 07:23 | disposition home or self-care (01) ==
LOC: HO.HMGCLDS 07:22
PROVIDERS: PCP Internal Medicine; Visit Provider Internal Medicine
DX: I10 Essential (primary) hypertension (principal); E03.9 Hypothyroidism, unspecified; E55.9 Vitamin D deficiency, unspecified
CPT/HCPCS: 36415; 80053; 80061; 82306; 84439; 84443

== ENCOUNTER 2023-11-30 12:41 | Outpatient (AMB) | payer OTHER, SELFPAY ==
--- NOTE | 2023-11-30 12:46 | MHC.PC.OV ---
Vital Signs 11/30/23 12:47 Height 5 ft 3 in Weight 166 lb BMI 29.4 BP 128/74 Blood Pressure Location Lt brachial Position Sitting Pulse 87 Pulse Source Pulse Oximeter Pulse Oximetry (%) 96 Oxygen Delivery Method Room Air Intake Visit Reasons: Annual PE Intake Note: Pt is here today for PE. Allergies clonidine [CLONIDINE] Allergy (Unknown, Verified 11/30/23 12:47) UNKNOWN naproxen [NAPROXEN] Allergy (Unknown, Verified 11/30/23 12:47) UNKNOWN penicillin V Allergy (Unknown, Verified 11/30/23 12:47) Itching Penicillins [PENICILLINS] Allergy (Unknown, Verified 11/30/23 12:47) itching Sulfa (Sulfonamide Antibiotics) [SULFA (SULFONAMIDE ANTIBIOTICS)] Allergy (Unknown, Verified 11/30/23 12:47) n/a nifedipine Adverse Reaction (Intermediate, Verified 11/30/23 12:47) leg swelling triamterene Adverse Reaction (Intermediate, Verified 11/30/23 12:47) Fainting lisinopril [LISINOPRIL] Adverse Reaction (Unknown, Verified 11/30/23 12:47) Cough Medication List - Last Reconciled 11/30/23 by Leah Nazario MD aspirin 81 mg PO DAILY colchicine 0.6 mg PO BID compr.stocking,thigh,reg,x-lrg As directed estradiol 0.01%(0.1mg/gram) grams vaginal fluticasone propionate 50 mcg/actuation 1 spray intranasal DAILY hydrochlorothiazide 25 mg PO DAILY hydrocortisone 2.5% 1 appl NE BID-QID PRN levothyroxine 25 mcg PO DAILY lidocaine 5% 1 ea topical .QD olmesartan 40 mg PO DAILY pravastatin 20 mg PO DAILY triamcinolone acetonide 0.025% appl topical BID triamcinolone acetonide 0.1% 1 appl dental BID umeclidinium-vilanterol 62.5-25 mcg/actuation (Anoro Ellipta) 1 inh inhalation DAILY ursodiol 1,000 mg PO DAILY Tobacco use date assessed: 11/30/23 Fall risk assessment: No Falls in past year Last assessed Fall Risk: 11/30/23 Dental Screening Dental Screen Date: 11/30/23 Did you have a dental visit in the last 12 months?: Yes Did you have a dental problem in the last 6 months where you did not have access to dental care?: No Was dental information given to patient?: Patient has dentist HPI Annual PE HPI Details Pt pressents for PE. [facility] Medical History Abnormal mammogram of left breast Pain of right thumb Edema Abnormal mammogram Primary biliary cirrhosis Lumbar spinal stenosis Osteoarthritis of left hip Vitamin D deficiency Gallbladder polyp Microscopic hematuria Multinodular goiter COPD (chronic obstructive pulmonary disease) HTN (hypertension) Surgical History H/O colonoscopy No pertinent past surgical history Family History Father No problems noted. Mother No problems noted. Social History Housing: House Alcohol intake: never Patient Tobacco Use Status: Never used Tobacco e-Cigarette/Vaping Use: Never Used Second Hand Smoke Exposure: No service: No Current occupational status: retired Current occupation: rt hand Current occupational exposures/hazards: No Cognitive needs: No Hearing needs: No Vision needs: Yes Questionnaire PHQ-9 Over the last 2 weeks, how often have you been bothered by any of the following problems? 1. Little interest or pleasure in doing things: not at all 2. Feeling down, depressed, or hopeless: not at all 3. Trouble falling or staying asleep, or sleeping too much: not at all 4. Feeling tired or having little energy: not at all 5. Poor appetite or overeating: not at all 6. Feeling bad about yourself - or that you are a failure or have let yourself or your family down: not at all 7. Trouble concentrating on things, such as reading the newspaper or watching television: not at all 8. Moving or speaking so slowly that other people could have noticed. Or the opposite - being so fidgety or restless that you have been moving around a lot more than usual: not at all 9. Thoughts that you would be better off or of hurting yourself in some way: not at all Total score: 0 Depression Screening Interpretation: Negative Depression Screening Done: Yes 90460 - PHQ-9 Billing: Yes Source: Developed by Drs. Jiame Alexandre, Shannan Farah, Francisco Garcia and colleagues, with an educational laura from [employer]. Thrive Questionnaire Date Thrive assessed: 11/30/23 I am a: Patient What is your living situation today?: I have a steady place to live Within the past 12 months, did the food you bought not last and you didn't have the money to get more?: Never true Within the past 12 months, did you worry whether your food would run out before you got money to buy more?: Never true Do you have trouble paying for medicines?: No Do you have trouble getting transportation to medical appointments?: No Do you have trouble paying your heating and electricity bill?: No Do you have trouble taking care of your child, family member or friend?: No Do you have trouble with day-to-day activities such as bathing, preparing meals, shopping, managing finances, etc.?: No Are you currently unemployed and looking for a job?: No Are you interested in more education?: No Please select the resources that you would like help with: None Currently or been in a relationship where the following occur: No concerns reported THRIVE Score: 0 AUDIT C Alcohol Use Questionnaire (AUDIT-C) 1. How often do you have a drink containing alcohol?: Never 3. How often do you have six or more drinks on one occasion?: Never Total Score: 0 MISTY-7 AMB Questionnaire MISTY-7 Date MISTY - 7 assessed: 11/30/23 Feeling nervous, anxious, or on edge: 0 = Not at all Not being able to stop or control worryin = Not at all Worrying too much about different things: 0 = Not at all Trouble relaxin = Not at all Being so restless that it is hard to sit still: 0 = Not at all Becoming easily annoyed or irritable: 0 = Not at all Feeling afraid as if something awful might happen: 0 = Not at all Total MISTY-7 score (0-4 normal; 5-9 mild; 10-14 moderate; 15-21 severe): 0 Source: Developed by Shannan Garcia, Francisco Garcia and colleagues, with an educational laura from [employer]. MISTY-7 Assessment Billing MISTY-7 Assessment Tool: MISTY-7 Assessment 66846 Review of Systems Const All systems reviewed & are unremarkable except as noted in HPI and below Eyes Reports no additional complaints Card Reports no additional complaints Resp Reports no additional complaints GI Reports no additional complaints Reports no additional complaints Physical exam (Primary Care) Vital Signs: Last Vital Signs Pulse 87 11/30/23 12:47 BP 128/74 11/30/23 12:47 Pulse Ox 96 11/30/23 12:47 Oxygen Delivery Method Room Air 11/30/23 12:47 BMI result Body Mass Index 29.4 Tobacco/Smoking Status: Tobacco use Status Tobacco use date assessed 11/30/23 11/30/23 12:48 Patient Tobacco Use Status Never used Tobacco 11/30/23 12:48 e-Cigarette/Vaping Use Never Used 11/30/23 12:48 PHQ-9: PHQ-9 Score PHQ-9: Total score 0 11/30/23 13:21 Depression Screening Interpretation: Negative Thrive Assessment: Date of Thrive Assessment Date Thrive assessed 11/30/23 11/30/23 12:48 Currently or been in a relationship where the following occur: No concerns reported Const General: no acute distress HENMT Head: Yes normal to inspection Ears: hearing grossly normal bilaterally General nose exam: Normal external nose present Face and sinus: Yes normal facial exam Mouth: Normal oral and palatal mucosa present Throat: Yes posterior oropharynx normal Eyes General: appearance normal, both eyes and all related structures Neck Neck: Yes no lymphadenopathy and Yes supple Resp Effort & Inspection: normal respiratory effort Auscultation: clear to auscultation bilaterally Cardio Rhythm: regular rhythm Heart sounds: S1 normal heart sound present and S2 normal heart sound present GI Inspection: Yes normal to inspection Palpation (GI): Soft to palpation Percussion: Yes normal to percussion Auscultation: normal bowel sounds Assessment and Plan Assessment & Plan (1) HTN (hypertension): Comment: BP < 130/80 Code(s): I10 - Essential (primary) hypertension Plan: cont meds (2) Primary biliary cirrhosis: Comment: f/u Code(s): K74.3 - Primary biliary cirrhosis Plan: f/u with GI, cont meds (3) Hyperglycemia: Code(s): R73.9 - Hyperglycemia, unspecified Plan: ADA diet, regular execisr, weight loss (4) Hypothyroid: Code(s): E03.9 - Hypothyroidism, unspecified Plan: cont Levothyroxine Orders: Orders Comprehensive [place]. Panel Fast 1 Year E03.9 - Hypothyroidism, unspecified, I10 - Essential (primary) hypertension, K74.3 - Primary biliary cirrhosis, R73.9 - Hyperglycemia, unspecified Complete Blood Count Auto Diff 1 Year E03.9 - Hypothyroidism, unspecified, I10 - Essential (primary) hypertension, K74.3 - Primary biliary cirrhosis, R73.9 - Hyperglycemia, unspecified Lipid Panel 1 Year E03.9 - Hypothyroidism, unspecified, I10 - Essential (primary) hypertension, K74.3 - Primary biliary cirrhosis, R73.9 - Hyperglycemia, unspecified TSH reflex Free T4 1 Year E03.9 - Hypothyroidism, unspecified, I10 - Essential (primary) hypertension, K74.3 - Primary biliary cirrhosis, R73.9 - Hyperglycemia, unspecified Medications: New econazole 1% 1 appl topical DAILY 85 grams 1RF compr.stocking,thigh,reg,x-lrg 15-25 mmHg 12 ea 2RF Refilled triamcinolone acetonide 0.1% use after food and/or drink and/or oral hygiene 1 appl dental BID 5 grams 5RF Coding Level of Care Code Est Pt Prev Care >65y(72681) Diagnoses HTN (hypertension) I10 Primary biliary cirrhosis K74.3 Hyperglycemia R73.9 Hypothyroid E03.9 Additional Codes MISTY-7 Assessment Billing - MISTY-7 Assessment Tool: MISTY-7 Assessment 11240 ([id number])
[2023-11-30 12:47] VITALS: BP 128/74; PULSE 87; O2SAT 96; BMI 29.4
== END 2023-11-30 14:10 | disposition home or self-care (01) ==
PROVIDERS: PCP Internal Medicine; Visit Provider Internal Medicine
DX: Z00.00 Encounter for general adult medical examination without abnormal findings (principal); I10 Essential (primary) hypertension; K74.3 Primary biliary cirrhosis; R73.9 Hyperglycemia, unspecified; E03.9 Hypothyroidism, unspecified
CPT/HCPCS: 99397

== ENCOUNTER 2023-12-11 15:03 | Outpatient (AMB) | payer OTHER, SELFPAY ==
--- NOTE | 2023-12-11 15:22 | A.OFFVIS_ITS ---
Intake Visit Reasons: 1y/US Intake Note: Patient is Present for Follow Up Ultrasound Urology Medication: None Antibiotic Allergies:Penicillins, Sulfa Blood Thinners:Aspirin Environmental Services Coordinator Required: No Accompanied by: Self / Same As Patient Allergies clonidine [CLONIDINE] Allergy (Unknown, Verified 12/11/23 15:27) UNKNOWN naproxen [NAPROXEN] Allergy (Unknown, Verified 12/11/23 15:27) UNKNOWN penicillin V Allergy (Unknown, Verified 12/11/23 15:27) Itching Penicillins [PENICILLINS] Allergy (Unknown, Verified 12/11/23 15:27) itching Sulfa (Sulfonamide Antibiotics) [SULFA (SULFONAMIDE ANTIBIOTICS)] Allergy (Unknown, Verified 12/11/23 15:27) n/a nifedipine Adverse Reaction (Intermediate, Verified 12/11/23 15:27) leg swelling triamterene Adverse Reaction (Intermediate, Verified 12/11/23 15:27) Fainting lisinopril [LISINOPRIL] Adverse Reaction (Unknown, Verified 12/11/23 15:27) Cough HPI Comments Details: Jordana is a very pleasant [place] female. She is a patient of Dr. Reyes. She is seen for the following urologic conditions. - nephrolithiasis Stable imaging They would like to continue to follow yearly Nephrolithiasis Last stone 2018 Has been followed yearly Encourage fluid intake Imaging - 08/01 renal ultrasound [facility] 1.2 cm left cyst, no stones - 09/01 renal [facility] stable 1.2 cm left renal cyst - 11/02 renal ultrasound [facility] mild right hydro stable cyst - 12/04 renal ultrasound, stable cyst, no stones PFSH Medical History Abnormal mammogram of left breast Pain of right thumb Edema Abnormal mammogram Primary biliary cirrhosis Lumbar spinal stenosis Osteoarthritis of left hip Vitamin D deficiency Gallbladder polyp Microscopic hematuria Multinodular goiter HTN (hypertension) Surgical History H/O colonoscopy No pertinent past surgical history Family History Father No problems noted. Mother No problems noted. Social History Housing: House Alcohol intake: never Patient Tobacco Use Status: Never used Tobacco e-Cigarette/Vaping Use: Never Used Second Hand Smoke Exposure: No service: No Current occupational status: retired Current occupation: rt hand Current occupational exposures/hazards: No Cognitive needs: No Hearing needs: No Vision needs: Yes Review of Systems Const Denies chills and Denies fever(s) Card Reports no additional complaints and Denies syncope Resp Denies cough GI Denies abdominal pain and Denies heartburn Reports as per HPI and Denies change in libido Neuro Denies syncope Psych Denies change in libido Endo Denies change in libido Physical Exam Const General: cooperative, healthy appearing, comfortable and no acute distress Orientation/consciousness: patient oriented x3 HEENT Face and sinus: Yes normal facial exam Mouth: moist mucous membranes Neck Neck: Yes normal visual inspection, Yes full ROM and Yes trachea midline Chest Chest palpation & inspection: normal inspection of the chest Resp Effort & Inspection: normal respiratory effort, able to speak in complete sentences and no respiratory distress GI Inspection: Yes normal to inspection Back/Spine/Pelvis Cervical Spine: normal cervical lordosis Thoracic/Lumbar Spine: thoracic and lumbar spine normal to inspection Skin General skin exam: no rashes or lesions noted Neuro General: patient oriented x3, gait normal, tone normal and moves all extremities Extrem General: Yes normal to inspection and Yes capillary refill normal Assessment & Plan Assessment & Plan (1) Nephrolithiasis: Comment: Stone 2018 Code(s): N20.0 - Calculus of kidney Category: Medical Plan Twelve month follow-up imaging Patient Instructions: Imaging studies, laboratory and physical exam results were discussed and reviewed in detail. No major barriers to patient understanding were identified. An opportunity to ask questions regarding the treatment plan was provided. All questions were answered. The patient expressed understanding and agreement with the above treatment plan. The patient is aware they should contact our office by phone for worsening of their current condition or the appearance of new urologic symptoms. Compliance is encouraged with any medications and followup testing that is ordered. It is a privilege to participate in the urologic care of your patient. If you have any questions or concerns regarding treatment for the above conditions, or other urologic issues, please do not hesitate to contact me. The office telephone contact is [phone]. This note is constructed using voice recognition software. While every effort has been made to ensure accuracy senior commissions analyst errors may have been included. Yours sincerely, Dr Delon Tovar MD, [facility] - Urology Providers of Expert, Compassionate Care for the Genitourinary System Coding Level of Care Code Est Pt Level 4 (10633) Diagnoses Nephrolithiasis N20.0
== END 2023-12-11 15:48 | disposition home or self-care (01) ==
PROVIDERS: PCP Internal Medicine; Visit Provider Urology
DX: N20.0 Calculus of kidney (principal)
CPT/HCPCS: 99214

== ENCOUNTER → 2023-12-11 15:03 | Outpatient (BNVA) | payer OTHER, SELFPAY | PROVIDERS: PCP Internal Medicine; Visit Provider Urology | DX: Z87.442 Personal history of urinary calculi (principal); Z79.82 Long term (current) use of aspirin | CPT/HCPCS: 99212 ==

== ENCOUNTER 2024-02-18 13:05 | Outpatient (AMB) | payer OTHER, SELFPAY ==
--- NOTE | 2024-02-18 13:06 | MHC.PC.OV ---
Vital Signs 02/18/24 13:09 Height 5 ft 3 in Weight 165 lb BMI 29.2 BP 128/70 Blood Pressure Location Lt brachial Position Sitting Pulse 69 Pulse Source Pulse Oximeter Pulse Oximetry (%) 96 Oxygen Delivery Method Room Air Intake Visit Reasons: ER follow up Intake Note: Pt is here today for ER follow up visit. Allergies clonidine [CLONIDINE] Allergy (Unknown, Verified 02/18/24 13:12) UNKNOWN naproxen [NAPROXEN] Allergy (Unknown, Verified 02/18/24 13:12) UNKNOWN penicillin V Allergy (Unknown, Verified 02/18/24 13:12) Itching Penicillins [PENICILLINS] Allergy (Unknown, Verified 02/18/24 13:12) itching Sulfa (Sulfonamide Antibiotics) [SULFA (SULFONAMIDE ANTIBIOTICS)] Allergy (Unknown, Verified 02/18/24 13:12) n/a nifedipine Adverse Reaction (Intermediate, Verified 02/18/24 13:12) leg swelling triamterene Adverse Reaction (Intermediate, Verified 02/18/24 13:12) Fainting lisinopril [LISINOPRIL] Adverse Reaction (Unknown, Verified 02/18/24 13:12) Cough Medication List - Last Reconciled 02/18/24 by Leah Nazario MD aspirin 81 mg PO DAILY colchicine 0.6 mg PO BID compr.stocking,thigh,reg,x-lrg 15-25 mmHg econazole 1% 1 appl topical DAILY estradiol 0.01%(0.1mg/gram) grams vaginal fluticasone propionate 50 mcg/actuation 1 spray intranasal DAILY hydrochlorothiazide 25 mg PO DAILY hydrocortisone 2.5% 1 appl [place] BID-QID PRN levothyroxine 50 mcg PO DAILY lidocaine 5% 1 ea topical .QD olmesartan 40 mg PO DAILY pravastatin 20 mg PO DAILY triamcinolone acetonide 0.025% appl topical BID triamcinolone acetonide 0.1% 1 appl dental BID umeclidinium-vilanterol 62.5-25 mcg/actuation (Anoro Ellipta) 1 inh inhalation DAILY ursodiol 1,000 mg PO DAILY Tobacco use date assessed: 11/30/23 Dental Screening Dental Screen Date: 11/30/23 HPI ER follow up HPI Details Patient presents for the follow-up of ER visit for acute onset headache. Workup including CT of the brain and CT angiogram was negative. Patient complains of persistent postnasal drip and dry cough worse after laying down. She tried Anoro without significant relief. Patient has been using Flonase nasal spray with some improvement. She denies heartburn or GERD symptoms. Hypertension hyperlipidemia controlled on current medications. [facility] Medical History Abnormal mammogram of left breast Pain of right thumb Edema Abnormal mammogram Primary biliary cirrhosis Lumbar spinal stenosis Osteoarthritis of left hip Vitamin D deficiency Gallbladder polyp Microscopic hematuria Multinodular goiter HTN (hypertension) Surgical History H/O colonoscopy No pertinent past surgical history Family History Father No problems noted. Mother No problems noted. Social History Housing: House Alcohol intake: never Patient Tobacco Use Status: Never used Tobacco e-Cigarette/Vaping Use: Never Used Second Hand Smoke Exposure: No service: No Current occupational status: retired Current occupation: rt hand Current occupational exposures/hazards: No Cognitive needs: No Hearing needs: No Vision needs: Yes Questionnaire Thrive Questionnaire Date Thrive assessed: 11/30/23 I am a: Patient What is your living situation today?: I have a steady place to live Within the past 12 months, did the food you bought not last and you didn't have the money to get more?: Never true Within the past 12 months, did you worry whether your food would run out before you got money to buy more?: Never true Do you have trouble paying for medicines?: No Do you have trouble getting transportation to medical appointments?: No Do you have trouble paying your heating and electricity bill?: No Do you have trouble taking care of your child, family member or friend?: No Do you have trouble with day-to-day activities such as bathing, preparing meals, shopping, managing finances, etc.?: No Are you currently unemployed and looking for a job?: No Are you interested in more education?: No Please select the resources that you would like help with: None Currently or been in a relationship where the following occur: No concerns reported THRIVE Score: 0 MISTY-7 AMB Questionnaire MISTY-7 Date MISTY - 7 assessed: 11/30/23 Source: Developed by Drs. Jaime Alexandre, Shannan Farah, Francisco Garcia and colleagues, with an educational laura from [employer]. Review of Systems Const All systems reviewed & are unremarkable except as noted in HPI and below Eyes Reports no additional complaints ENT Reports no additional complaints Card Reports no additional complaints Resp Reports no additional complaints GI Reports no additional complaints Reports no additional complaints Physical exam (Primary Care) Vital Signs: Last Vital Signs Pulse 69 02/18/24 13:09 BP 128/70 02/18/24 13:09 Pulse Ox 96 02/18/24 13:09 Oxygen Delivery Method Room Air 02/18/24 13:09 BMI result Body Mass Index 29.2 Tobacco/Smoking Status: Tobacco use Status Tobacco use date assessed 11/30/23 02/18/24 13:09 Patient Tobacco Use Status Never used Tobacco 02/18/24 13:09 e-Cigarette/Vaping Use Never Used 02/18/24 13:09 Thrive Assessment: Date of Thrive Assessment Date Thrive assessed 11/30/23 02/18/24 13:09 Currently or been in a relationship where the following occur: No concerns reported Const General: no acute distress HENMT Head: Yes normal to inspection Ears: hearing grossly normal bilaterally Face and sinus: No sinus tenderness Mouth: Normal oral and palatal mucosa present Throat: Yes posterior oropharynx normal Neck Neck: Yes no lymphadenopathy and Yes supple Resp Effort & Inspection: normal respiratory effort Auscultation: clear to auscultation bilaterally Cardio Rhythm: regular rhythm Heart sounds: S1 normal heart sound present and S2 normal heart sound present GI Inspection: Yes normal to inspection Palpation (GI): Soft to palpation Percussion: Yes normal to percussion Auscultation: normal bowel sounds Coding Level of Care Code Est Pt Level 4 (63743) Diagnoses Allergic rhinitis J30.9 Cough R05.9 Primary biliary cirrhosis K74.3 HTN (hypertension) I10 Assessment & Plan Assessment & Plan (1) Allergic rhinitis: Code(s): J30.9 - Allergic rhinitis, unspecified Category: Medical Plan: Continue Flonase nasal spray and [id number] antihistamine patient will be referred to [facility] program associate (2) Cough: Comment: chronic Code(s): R05.9 - Cough, unspecified Category: Medical Plan: For chronic cough patient will try Breo and omeprazole 20 mg at the bedtime. She was advised to restart using Flonase nasal spray (3) Primary biliary cirrhosis: Comment: f/u Code(s): K74.3 - Primary biliary cirrhosis Category: Medical Plan: Continue current medications (4) HTN (hypertension): Comment: BP < 130/80 Code(s): I10 - Essential (primary) hypertension Category: Medical Plan: Continue current medications Orders: Referrals Allergy & Immunology Referral J30.9 - Allergic rhinitis, unspecified Medications: New omeprazole 20 mg PO DAILY 90 caps 0RF benzonatate 100 mg PO BID PRN 30 caps 1RF cough levothyroxine 50 mcg PO DAILY 90 tabs 0RF fluticasone furoate-vilanterol 100-25 mcg/dose (Breo Ellipta) 1 inh inhalation DAILY 60 ea 2RF Refilled olmesartan 40 mg PO DAILY 90 tabs 3RF I10 - Essential (primary) hypertension hydrochlorothiazide 25 mg PO DAILY 90 tabs 3RF pravastatin 20 mg PO DAILY 90 tabs 3RF Discontinued umeclidinium-vilanterol 62.5-25 mcg/actuation (Anoro Ellipta) Discontinued Reason: Doctor's Order 1 inh inhalation DAILY 180 ea 6RF
[2024-02-18 13:09] VITALS: BP 128/70; PULSE 69; O2SAT 96; BMI 29.2
== END 2024-02-18 13:59 | disposition home or self-care (01) ==
LOC: HO.HMCC 13:06
PROVIDERS: PCP Internal Medicine; Visit Provider Internal Medicine
DX: J30.9 Allergic rhinitis, unspecified (principal); R05.9 Cough, unspecified; K74.3 Primary biliary cirrhosis; I10 Essential (primary) hypertension

== ENCOUNTER → 2024-02-18 13:05 | Outpatient (BNVA) | payer OTHER, SELFPAY | PROVIDERS: PCP Internal Medicine; Visit Provider Internal Medicine | DX: J30.9 Allergic rhinitis, unspecified (principal); R05.9 Cough, unspecified; K74.3 Primary biliary cirrhosis; I10 Essential (primary) hypertension | CPT/HCPCS: 99212 ==

== ENCOUNTER 2024-04-21 12:46 | Outpatient (AMB) | payer OTHER, SELFPAY ==
--- NOTE | 2024-04-21 12:46 | MHC.PC.OV ---
Vital Signs 04/21/24 12:47 Height 5 ft 3 in Weight 165 lb BMI 29.2 BP 134/80 Blood Pressure Location Lt brachial Position Sitting Pulse 83 Pulse Source Pulse Oximeter Pulse Oximetry (%) 98 Oxygen Delivery Method Room Air Intake Visit Reasons: 2m follow up Intake Note: Pt is here today for 2 months follow up visit. Allergies clonidine [CLONIDINE] Allergy (Unknown, Verified 04/21/24 12:55) UNKNOWN naproxen [NAPROXEN] Allergy (Unknown, Verified 04/21/24 12:55) UNKNOWN penicillin V Allergy (Unknown, Verified 04/21/24 12:55) Itching Penicillins [PENICILLINS] Allergy (Unknown, Verified 04/21/24 12:55) itching Sulfa (Sulfonamide Antibiotics) [SULFA (SULFONAMIDE ANTIBIOTICS)] Allergy (Unknown, Verified 04/21/24 12:55) n/a nifedipine Adverse Reaction (Intermediate, Verified 04/21/24 12:55) leg swelling triamterene Adverse Reaction (Intermediate, Verified 04/21/24 12:55) Fainting lisinopril [LISINOPRIL] Adverse Reaction (Unknown, Verified 04/21/24 12:55) Cough Medication List - Last Reconciled 04/21/24 by Leah Nazario MD aspirin 81 mg PO DAILY cetirizine 10 mg PO BEDTIME colchicine 0.6 mg PO BID compr.stocking,thigh,reg,x-lrg 15-25 mmHg econazole 1% 1 appl topical DAILY estradiol 0.01%(0.1mg/gram) grams vaginal fluticasone propionate 50 mcg/actuation 1 spray intranasal DAILY hydrochlorothiazide 25 mg PO DAILY hydrocortisone 2.5% 1 appl [place] BID-QID PRN levothyroxine 50 mcg PO DAILY lidocaine 5% 1 ea topical .QD olmesartan 40 mg PO DAILY omeprazole 20 mg PO DAILY pravastatin 20 mg PO DAILY triamcinolone acetonide 0.025% appl topical BID triamcinolone acetonide 0.1% 1 appl dental BID ursodiol 1,000 mg PO DAILY Tobacco use date assessed: 04/21/24 Fall risk assessment: No Falls in past year Last assessed Fall Risk: 04/21/24 Dental Screening Dental Screen Date: 04/21/24 Did you have a dental visit in the last 12 months?: Yes Did you have a dental problem in the last 6 months where you did not have access to dental care?: No Was dental information given to patient?: Patient has dentist HPI 2m follow up HPI Details Patient presents for the follow-up of hypertension hypothyroidism hyperlipidemia COPD stable on current medications [facility] Medical History Abnormal mammogram of left breast Pain of right thumb Edema Abnormal mammogram Primary biliary cirrhosis Lumbar spinal stenosis Osteoarthritis of left hip Vitamin D deficiency Gallbladder polyp Microscopic hematuria Multinodular goiter HTN (hypertension) Surgical History H/O colonoscopy No pertinent past surgical history Family History Father No problems noted. Mother No problems noted. Social History Housing: House Alcohol intake: never Patient Tobacco Use Status: Never used Tobacco e-Cigarette/Vaping Use: Never Used Second Hand Smoke Exposure: No service: No Current occupational status: retired Current occupation: rt hand Current occupational exposures/hazards: No Cognitive needs: No Hearing needs: No Vision needs: Yes Questionnaire PHQ-9 Over the last 2 weeks, how often have you been bothered by any of the following problems? 1. Little interest or pleasure in doing things: not at all 2. Feeling down, depressed, or hopeless: not at all 3. Trouble falling or staying asleep, or sleeping too much: not at all 4. Feeling tired or having little energy: not at all 5. Poor appetite or overeating: not at all 6. Feeling bad about yourself - or that you are a failure or have let yourself or your family down: not at all 7. Trouble concentrating on things, such as reading the newspaper or watching television: not at all 8. Moving or speaking so slowly that other people could have noticed. Or the opposite - being so fidgety or restless that you have been moving around a lot more than usual: not at all 9. Thoughts that you would be better off or of hurting yourself in some way: not at all Total score: 0 Depression Screening Interpretation: Negative Depression Screening Done: Yes 33189 - PHQ-9 Billing: Yes Source: Developed by Drs. Jaime Alexandre, Francisco Fair and colleagues, with an educational laura from [employer]. Thrive Questionnaire Date Thrive assessed: 04/21/24 I am a: Patient What is your living situation today?: I have a steady place to live Within the past 12 months, did the food you bought not last and you didn't have the money to get more?: Never true Within the past 12 months, did you worry whether your food would run out before you got money to buy more?: Never true Do you have trouble paying for medicines?: No Do you have trouble getting transportation to medical appointments?: No Do you have trouble paying your heating and electricity bill?: No Do you have trouble taking care of your child, family member or friend?: No Do you have trouble with day-to-day activities such as bathing, preparing meals, shopping, managing finances, etc.?: No Are you currently unemployed and looking for a job?: No Are you interested in more education?: No Please select the resources that you would like help with: None Currently or been in a relationship where the following occur: No concerns reported THRIVE Score: 0 AUDIT C Alcohol Use Questionnaire (AUDIT-C) 1. How often do you have a drink containing alcohol?: Never 3. How often do you have six or more drinks on one occasion?: Never Total Score: 0 MISTY-7 AMB Questionnaire MISTY-7 Date MISTY - 7 assessed: 04/21/24 Feeling nervous, anxious, or on edge: 0 = Not at all Not being able to stop or control worryin = Not at all Worrying too much about different things: 0 = Not at all Trouble relaxin = Not at all Being so restless that it is hard to sit still: 0 = Not at all Becoming easily annoyed or irritable: 0 = Not at all Feeling afraid as if something awful might happen: 0 = Not at all Total MISTY-7 score (0-4 normal; 5-9 mild; 10-14 moderate; 15-21 severe): 0 Source: Developed by Drs. Jaime Alexandre, Francisco Fair and colleagues, with an educational laura from [employer]. MISTY-7 Assessment Billing MISTY-7 Assessment Tool: MISTY-7 Assessment 80758 Review of Systems Const All systems reviewed & are unremarkable except as noted in HPI and below Eyes Reports no additional complaints ENT Reports no additional complaints Card Reports no additional complaints Resp Reports no additional complaints GI Reports no additional complaints Reports no additional complaints Physical exam (Primary Care) Vital Signs: Last Vital Signs Pulse 83 04/21/24 12:47 BP 134/80 04/21/24 12:47 Pulse Ox 98 04/21/24 12:47 Oxygen Delivery Method Room Air 04/21/24 12:47 BMI result Body Mass Index 29.2 Tobacco/Smoking Status: Tobacco use Status Tobacco use date assessed 04/21/24 04/21/24 12:57 Patient Tobacco Use Status Never used Tobacco 04/21/24 12:47 e-Cigarette/Vaping Use Never Used 04/21/24 12:47 PHQ-9: PHQ-9 Score PHQ-9: Total score 0 04/21/24 13:06 Depression Screening Interpretation: Negative Thrive Assessment: Date of Thrive Assessment Date Thrive assessed 04/21/24 04/21/24 13:01 Currently or been in a relationship where the following occur: No concerns reported Const General: no acute distress HENMT Head: Yes normal to inspection Throat: Yes posterior oropharynx normal Eyes General: appearance normal, both eyes and all related structures Resp Effort & Inspection: normal respiratory effort Auscultation: clear to auscultation bilaterally Cardio Rhythm: regular rhythm Heart sounds: S1 normal heart sound present and S2 normal heart sound present GI Inspection: Yes normal to inspection Palpation (GI): Soft to palpation Percussion: Yes normal to percussion Auscultation: normal bowel sounds Extrem General: Yes no clubbing, cyanosis or edema Coding Level of Care Code Est Pt Level 4 (27837) Complex EM visit Add On G2211 Diagnoses Hypothyroid E03.9 Abdominal aortic atherosclerosis I70.0 Primary biliary cirrhosis K74.3 HTN (hypertension) I10 COPD (chronic obstructive pulmonary disease) J44.9 Additional Codes MISTY-7 Assessment Billing - MISTY-7 Assessment Tool: MISTY-7 Assessment 74290 ([id number]) PHQ-9 - 08061 - PHQ-9 Billing: Yes ([id number]) Assessment & Plan Assessment & Plan (1) Hypothyroid: Code(s): E03.9 - Hypothyroidism, unspecified Category: Medical Plan: Continue levothyroxine (2) Abdominal aortic atherosclerosis: Comment: on statin Code(s): I70.0 - Atherosclerosis of aorta Category: Medical Plan: Continue statin (3) Primary biliary cirrhosis: Comment: f/u Code(s): K74.3 - Primary biliary cirrhosis Category: Medical Plan: Continue ursodiol and colchicine follow-up with GI (4) HTN (hypertension): Comment: BP < 130/80 Code(s): I10 - Essential (primary) hypertension Category: Medical Plan: Continue current medications (5) COPD (chronic obstructive pulmonary disease): Code(s): J44.9 - Chronic obstructive pulmonary disease, unspecified Category: Medical Plan: Continue Anoro, return in December with a fasting blood work before Medications: New umeclidinium-vilanterol 62.5-25 mcg/actuation (Anoro Ellipta) 1 inh inhalation DAILY 60 ea 6RF Refilled olmesartan 40 mg PO DAILY 90 tabs 3RF I10 - Essential (primary) hypertension pravastatin 20 mg PO DAILY 90 tabs 3RF hydrochlorothiazide 25 mg PO DAILY 90 tabs 3RF Discontinued omeprazole Discontinued Reason: Doctor's Order 20 mg PO DAILY 90 caps 0RF
[2024-04-21 12:47] VITALS: BP 134/80; PULSE 83; O2SAT 98; BMI 29.2
--- OUTSIDE RECORDS SUMMARY | 2024-04-21 13:59 | XMS_ITS | Data Portability ---
Author Organization [place] - [facility], Allergy Address [address] [place] [phone] Assessment Encounter Date Assessment Date Assessment LastModified by Organization Details LastModified Time 12/17/2023 12/17/2023 Audiometric testing is stable compared with previous. Recommend she follow-up with her parts consultant for adjustment of her hearing aids. Her daughter describes an upcoming appointment with a new parts consultant. Her secondary concern of chronic cough with no relief with cough medicine from her primary care was further investigated with a fiberoptic exam of her larynx today. This showed some edema of the arytenoids which could be consistent with reflux or a result of her chronic cough. Her daughter mentioned she is followed by Dr. Forte, for a liver disease. It is possible there is an association of her disease and her cough and she may discuss further with her gastroenterolog ist. [email or web address] Not available 12/17/2023 14:20:48 Plan of Treatment Reminders Order Date Submit Date Provider Last Modified By Organization Details Last Modified Time Details Appointments None record ed. Lab None record ed. Referral None record ed. Procedures None record ed. Surgeries None record ed. Imaging None record ed. Medication Orders None record ed. Patient TargetsNo targets recorded. Patient InstructionsNo instructions recorded. Reason for Referral None Reported. Results Created Date Observation Date Name Description Value Unit Range Abnormal Flag Note LastModifiedBy Organization Detail LastModifiedTime 12/01/19 24 09/27/2021 imagi ng/di agnos tic resul t No observ ation record ed. [email or web address] Not Available 14:07:32 12/01/19 24 09/27/2021 imagi ng/di agnos tic resul t No observ ation record ed. [email or web address] Not Available 14:07:33 12/01/19 24 09/27/2021 imagi ng/di agnos tic resul t No observ ation record ed. [email or web address] Not Available 14:07:34 12/01/19 24 09/27/2021 audio gram No observ ation record ed. [email or web address] Not Available 14:07:38 12/18/19 24 audio gram No observ ation record ed. [email or web address] Not Available 09/2023 08:35:58 Result Notes None recorded. Problems Name Problem SNOMED Code Status Onset Date Resolution Date Notes Provider Name and Address Organization Details Recorded Time Sensorineu ral hearing loss of bilateral ears 529249025 Active 2021 Sensorineu ral hearing loss, bilateral; Note: Date Diagnosed: 09/27/2021 10:27 AM (H90.3) VALERIE PHAM MD [address] [place] [address], [phone], [facility] - [facility] 12:27:39 Chronic cough 22527683 Active 2023 VALERIE PHAM MD [address] [place] [address], [place], [phone], [facility] - [facility] [place] 14:17:53 Biliary cirrhosis 3596574 Active 2023 VALERIE PHAM MD [address] [place] [address], [phone], [facility] - [facility] [place] 14:18:44 Problem Notes None recorded. Procedures Surgical History Date Name Laterality Status Provider Name and Address Organization Details Recorded Time 12/17/19 24 FOL_DP completed VALERIE PHAM MD [address] [place] [address], [phone], [facility] - [facility] [place] 12/17/2023 14:17:43 12/17/19 24 Air only Audio (77366) completed Blanca Roberts [facility] [place] 12/17/2023 13:16:39 12/17/19 24 Tympanometry (31341) completed Blanca Roberts MA [facility] 12/17/2023 13:16:46 Imaging Results Imaging Date Name Status LastModified by Organiz [facility] Details LastModified Time 09/27/2021 imaging/diagno stic result completed Information not available 12/01/2023 14:07:32 09/27/2021 imaging/diagno stic result completed Information not available 12/01/2023 14:07:33 09/27/2021 imaging/diagno stic result completed Information not available 12/01/2023 14:07:34 09/27/2021 audiogram completed Information not available 12/01/2023 14:07:38 12/18/2023 audiogram completed [email or web address] Information n ot available 12/18/2023 08:35:58 Procedure Notes None recorded. Medical Equipment None Reported. Allergies Allergen ID Allergen Name Allergen Category Reaction Reaction Severity Criticality Documentation Date Start Date Code Code System Note Provider Name and Address Organization Details Recorded Time 958401 clonidine medicatio n other Not available Not available 08/25/2023 2599 RxNorm React ion: Unkno wn; Not Available [facility] 4 01:11:22 017771 naproxen medicatio n other Not available Not available 08/25/2023 7258 RxNorm React ion: Unkno wn; Not Available [facility] 4 01:11:23 765165 Substance with sulfonami de structure and antibacte rial mechanism of action (substanc e) medicatio n other Not available Not available 08/25/2023 05462 8003 SNOMED React ion: Unkno wn; Not Available [facility] 4 01:11:24 211890 lisinopri l medicatio n other Not available Not available 08/25/2023 15851 RxNorm React ion: Unkno wn; Not Available [facility] 4 01:11:25 246087 Penicilli n Not available other Not available Not available 08/25/2023 84951 RxNorm React ion: Unkno wn; Not Available [facility] 4 01:11:27 Medications Name Sig Start Date Stop Date Status Note LastModified by Organization Details LastModified Time nifedipine ER 30 mg tablet,ext ended release 24 hr active Medicatio n ID: [id number] Br and Name: nifedipin e Send Method: E-Prescri bed Subs Allowed: subs [place] [facility]: nifedipin e Not Available Not Available Not Available levothyrox ine 25 mcg tablet TAKE ONE TABLET BY MOUTH EVERY DAY active Not Available Not Available No t Available prednisolo ne acetate 1 % eye drops,susp ension PUT 1 DROP INTO AFFECTED EYE FOUR TIMES A DAY FOR 4 DAYS active Not Available Not Available No t Available triamcinol one acetonide 0.1 % dental paste APPLY TO DENTAL AREA TWO TIMES A DAY. USE AFER FOOD AND/OR DRINK AND/OR ORAL HYGIENE active Not Available Not Available No t Available econazole 1 % topical cream APPLY TO AFFECTED AREA S) ONCE DAILY active Not Available Not Available No t Available erythromyc in 5 mg/gram (0.5 %) eye ointment APPLY A SMALL AMOUNT INTO BOTH EYES FOUR TIMES A DAY. APPLY TO INCISION SITES FOR 1 WEEK THEN STOP active Not Available Not Available No t Available ursodiol 250 mg tablet TAKE ONE TABLET BY MOUTH FOUR TIMES A DAY active Not Available Not Available No t Available triamteren e 37.5 mg-hydroch lorothiazi de 25 mg tablet TAKE ONE TABLET BY MOUTH EVERY DAY active Not Available Not Available No t Available pravastati n 20 mg tablet TAKE ONE TABLET BY MOUTH EVERY DAY active Not Available Not Available No t Available hydrochlor othiazide 25 mg tablet TAKE ONE TABLET BY MOUTH EVERY DAY active Not Available Not Available No t Available estradiol 0.01% (0.1 mg/gram) vaginal cream active Medicatio n ID: [id number] Br and Name: estradiol Send Method: E-Prescri bed Subs Allowed: subs [place] Medica tionGener icName: estradiol Not Available Not Available Not Available colchicine 0.6 mg tablet TAKE ONE TABLET BY MOUTH TWICE A DAY active Not Available Not Available No t Available fluticason e propionate 50 mcg/actuat ion nasal spray,susp ension INSTILL ONE SPRAY IN EACH NOSTRIL ONCE A DAY DIRECTED active Not Available Not Available No t Available olmesartan 40 mg tablet TAKE ONE TABLET BY MOUTH EVERY DAY active Not Available Not Available No t Available Anoro Ellipta 62.5 mcg-25 mcg/actuat ion powder for inhalation INHALE ONE PUFF BY MOUTH EVERY DAY active Not Available Not Available No t Available Procto-Med HC 2.5 % topical cream perineal applicator APPLY ONE APPLICATI ON RECTALLY TWO TO FOUR TIMES A DAY FOR HEMORRHOI DS active Not Available Not Available No t Available Vitals Date Recorded Body height Body mass index (BMI) Body weight Provider Name and Address Organization Details Last Updated DateTime 12/17/2023 162.56 cm 28.3 kg/m2 57705.74 g Odilia Abraham [place] - [facility] 12/17/2023 13:48:27 Social History None recorded. Functional Status None recorded. Mental Status None recorded. Family History Nothing Reported. Medical History No medical history recorded. Gynecological HistoryNo gynecological history recorded. Obstetrics History GPAL:G 0 P 0 0 0 0 Past Encounters Encounter ID Performer Location Encounter Start Date Encounter Closed Date Diagnosis/Indication Diagnosis SNOMED-CT Code Diagnosis ICD10 Code Diagnosis Note [id number] VALERIE PHAM MD [facility] [address] [phone] 12/17/2023 12:47:59 12/17/2023 14:23:03 Sensorineural hearing loss of bilateral ears 405567023 H90.3 Audiologic al evaluation results: Right ear: {{Normal* Normal through 2 kHz Mild M oderate Mo derately-s evere Honey re Profoun d}} {{hearing sloping to a mild slopi ng to a moderate s loping to moderately severe* sl oping to severe slo ping to profound f lat high frequency low frequency mid frequency cookie bite sandoval curve}} {{with sen sorineural hearing loss with* cond uctive hearing loss with mixed hearing loss with}} {{excellen t good kevin r poor no measurable *}} word recognitio n. Left ear: {{Normal* Normal through 2 kHz Mild M oderate Mo derately-s evere Honey re Profoun d}} {{hearing sloping to a mild slopi ng to a moderate s loping to moderately severe* sl oping to severe slo ping to profound f lat high frequency low frequency mid frequency cookie bite sandoval curve}} {{with sen sorineural hearing loss with* cond uctive hearing loss with mixed hearing loss with}} {{excellen t good kevin r poor no measurable *}} word recognitio n. SRT and WRS could not be measured due to language barriers. Tympanomet ry: Right Ear:{{Type A* Type As Type Ad Type C Type C, shallow & rounded Ty pe B Type B with large volume Cou ld not maintain a hermetic seal}} Left Ear:{{Type A* Type As Type Ad Type C Type C, shallow & rounded Ty pe B Type B with large volume Cou ld not maintain a hermetic seal}} Chronic cough 93432919 R 05.3 Biliary cirrhosis 219708 6 K74.5 Health Concerns Section Related Observation LastModified by Organization Detai ls LastModified Time None Recorded Concern Status LastModified by Organization Details LastModified Time None Recorded Advance Directives Directive None Recorded Payers Encounter Date Sequence Insurance Name Policy Number Policy Alonso Covered Member ID Alonso Member ID Guarantor Name 12/17/2023 1 [facility] [id number] Cowden Hiero Notes Date Note Type Note Provider Name and Address Organization Details Recorded Time 12/17/2023 text/html [place] - daughterhearing loss 09/27/2021 audio right ear normal sloping to moderate sensorineuralLeft ear normal sloping to moderate-severe sensorineural hearing aid evaluation recommended in urrent hearing aids 2021 in [place] - but they closed second concern of a dry coughonset 2019xray was clearcough medication liquid from PCP was not helpful+nocturnal coughOSA - on CPAPworks with Dr Forte for liver primary biliary cirrhosis VALERIE PHAM MD [address] [place] [address], [phone], [facility] - [facility] 12/17/2023 14:21:09 OBGyn Episode No OBEpisode recorded.
== END 2024-04-21 13:55 | disposition home or self-care (01) ==
PROVIDERS: PCP Internal Medicine; Visit Provider Internal Medicine
DX: E03.9 Hypothyroidism, unspecified (principal); I70.0 Atherosclerosis of aorta; K74.3 Primary biliary cirrhosis; J44.9 Chronic obstructive pulmonary disease, unspecified; I10 Essential (primary) hypertension

== ENCOUNTER → 2024-04-21 12:46 | Outpatient (BNVA) | payer OTHER, SELFPAY | PROVIDERS: PCP Internal Medicine; Visit Provider Internal Medicine | DX: E03.9 Hypothyroidism, unspecified (principal); I70.0 Atherosclerosis of aorta; K74.3 Primary biliary cirrhosis; I10 Essential (primary) hypertension; J44.9 Chronic obstructive pulmonary disease, unspecified | CPT/HCPCS: 96127; 99212 ==

== ENCOUNTER 2024-06-08 07:40 | Outpatient (AMB) | payer OTHER, SELFPAY ==
[2024-06-08 07:43] VITALS: BP 130/64; PULSE 68; RESP 16; TEMP 36.8; O2SAT 98; BMI 31.2
--- NOTE | 2024-06-08 07:43 | MHC.PC.OV ---
Vital Signs 06/08/24 07:43 Height 5 ft 3 in Weight 176 lb BMI 31.2 BP 130/64 Blood Pressure Location Lt brachial Position Sitting Respiration 16 Pulse 68 Pulse Source Pulse Oximeter Temp 98.2 F Pulse Oximetry (%) 98 Oxygen Delivery Method Room Air Intake Visit Reasons: follow up Allergies clonidine [CLONIDINE] Allergy (Unknown, Verified 06/08/24 07:51) UNKNOWN naproxen [NAPROXEN] Allergy (Unknown, Verified 06/08/24 07:51) UNKNOWN penicillin V Allergy (Unknown, Verified 06/08/24 07:51) Itching Penicillins [PENICILLINS] Allergy (Unknown, Verified 06/08/24 07:51) itching Sulfa (Sulfonamide Antibiotics) [SULFA (SULFONAMIDE ANTIBIOTICS)] Allergy (Unknown, Verified 06/08/24 07:51) n/a nifedipine Adverse Reaction (Intermediate, Verified 06/08/24 07:51) leg swelling triamterene Adverse Reaction (Intermediate, Verified 06/08/24 07:51) Fainting umeclidinium [From Anoro Ellipta] Adverse Reaction (Intermediate, Verified 06/08/24 08:18) Cough vilanterol [From Anoro Ellipta] Adverse Reaction (Intermediate, Verified 06/08/24 08:18) Cough lisinopril [LISINOPRIL] Adverse Reaction (Unknown, Verified 06/08/24 07:51) Cough Medication List - Last Reconciled 06/08/24 by Leah Nazario MD amlodipine 5 mg PO DAILY aspirin 81 mg PO DAILY cetirizine 10 mg PO BEDTIME colchicine 0.6 mg PO BID compr.stocking,thigh,reg,x-lrg 15-25 mmHg econazole nitrate 1% 1 appl topical DAILY estradiol 0.01%(0.1mg/gram) grams vaginal fluticasone propionate 50 mcg/actuation 1 spray intranasal DAILY hydrochlorothiazide 25 mg PO DAILY hydrocortisone 2.5% 1 appl ND BID-QID PRN levothyroxine 50 mcg PO DAILY lidocaine 5% 1 ea topical .QD omeprazole 20 mg PO DAILY pravastatin 20 mg PO DAILY triamcinolone acetonide 0.025% appl topical BID triamcinolone acetonide 0.1% 1 appl dental BID umeclidinium-vilanterol 62.5-25 mcg/actuation (Anoro Ellipta) 1 inh inhalation DAILY ursodiol 1,000 mg PO DAILY Tobacco use date assessed: 04/21/24 Fall risk assessment: No Falls in past year Last assessed Fall Risk: 06/08/24 Dental Screening Dental Screen Date: 06/08/24 Did you have a dental visit in the last 12 months?: Yes Did you have a dental problem in the last 6 months where you did not have access to dental care?: No Was dental information given to patient?: Patient has dentist HPI follow up HPI Details Patient presents for the follow-up of hypertension hypothyroidism hyperlipidemia COPD. She complains of persistent cough on and off for 2 years. Patient was seen by wealth management consultant and educational paraprofessional. Patient tried Anoro which increased heart cough and Breo which she could not tolerate. She thinks olmesartan is causing her cough. [facility] Medical History Abnormal mammogram of left breast Pain of right thumb Edema Abnormal mammogram Primary biliary cirrhosis Lumbar spinal stenosis Osteoarthritis of left hip Vitamin D deficiency Gallbladder polyp Microscopic hematuria Multinodular goiter HTN (hypertension) Surgical History H/O colonoscopy No pertinent past surgical history Family History Father No problems noted. Mother No problems noted. Social History Housing: House Alcohol intake: never Patient Tobacco Use Status: Never used Tobacco e-Cigarette/Vaping Use: Never Used Second Hand Smoke Exposure: No service: No Current occupational status: retired Current occupation: rt hand Current occupational exposures/hazards: No Cognitive needs: No Hearing needs: No Vision needs: Yes Questionnaire Thrive Questionnaire Date Thrive assessed: 11/30/23 I am a: Patient What is your living situation today?: I have a steady place to live Within the past 12 months, did the food you bought not last and you didn't have the money to get more?: Never true Within the past 12 months, did you worry whether your food would run out before you got money to buy more?: Never true Do you have trouble paying for medicines?: No Do you have trouble getting transportation to medical appointments?: No Do you have trouble paying your heating and electricity bill?: No Do you have trouble taking care of your child, family member or friend?: No Do you have trouble with day-to-day activities such as bathing, preparing meals, shopping, managing finances, etc.?: No Are you currently unemployed and looking for a job?: No Are you interested in more education?: No Please select the resources that you would like help with: None Currently or been in a relationship where the following occur: No concerns reported THRIVE Score: 0 MISTY-7 AMB Questionnaire MISTY-7 Date MISTY - 7 assessed: 04/21/24 Source: Developed by Drs. Jaime Alexandre, Shannan Farah, Francisco Garcia and colleagues, with an educational laura from [email or web address]. Review of Systems Const All systems reviewed & are unremarkable except as noted in HPI and below Eyes Reports no additional complaints ENT Reports no additional complaints Card Reports no additional complaints Resp Reports no additional complaints GI Reports no additional complaints Reports no additional complaints Physical exam (Primary Care) Vital Signs: Last Vital Signs Temp 98.2 F 06/08/24 07:43 Pulse 68 06/08/24 07:43 Resp 16 06/08/24 07:43 BP 130/64 06/08/24 07:43 Pulse Ox 98 06/08/24 07:43 Oxygen Delivery Method Room Air 06/08/24 07:43 BMI result Body Mass Index 31.2 Tobacco/Smoking Status: Tobacco use Status Tobacco use date assessed 04/21/24 06/08/24 07:43 Patient Tobacco Use Status Never used Tobacco 06/08/24 07:43 e-Cigarette/Vaping Use Never Used 06/08/24 07:43 Thrive Assessment: Date of Thrive Assessment Date Thrive assessed 11/30/23 06/08/24 07:43 Currently or been in a relationship where the following occur: No concerns reported Const General: no acute distress HENMT Head: Yes normal to inspection Face and sinus: Yes normal facial exam Eyes General: appearance normal, both eyes and all related structures Resp Effort & Inspection: normal respiratory effort Auscultation: clear to auscultation bilaterally Cardio Rhythm: regular rhythm Heart sounds: S1 normal heart sound present and S2 normal heart sound present GI Inspection: Yes normal to inspection Palpation (GI): Soft to palpation Percussion: Yes normal to percussion Auscultation: normal bowel sounds Coding Level of Care Code Est Pt Level 4 (49062) Diagnoses Cough R05.9 HTN (hypertension) I10 Primary biliary cirrhosis K74.3 Assessment & Plan Assessment & Plan (1) Cough: Comment: chronic, established with educational paraprofessional and wealth management consultant. Patient could not tolerate steroid inhalers and Anoro Code(s): R05.9 - Cough, unspecified Category: Medical Plan: Olmesartan will be discontinue and amlodipine 5 mg daily prescribed instead for hypertension. Patient will follow-up in 1 month. Trial of omeprazole at night for possible chronic GERD we will be started (2) HTN (hypertension): Comment: BP < 130/80 Code(s): I10 - Essential (primary) hypertension Category: Medical Plan: See above (3) Primary biliary cirrhosis: Comment: f/u Code(s): K74.3 - Primary biliary cirrhosis Category: Medical Plan: Continue current medications Medications: New amlodipine 5 mg PO DAILY 30 tabs 1RF omeprazole 20 mg PO DAILY 30 caps 1RF Discontinued olmesartan Discontinued Reason: Doctor's Order 40 mg PO DAILY 90 tabs 3RF I10 - Essential (primary) hypertension
--- OUTSIDE RECORDS SUMMARY | 2024-06-08 07:43 | XMS_ITS | Data Portability ---
Author Organization [place] - [facility], Allergy Address [address] [place] [phone] Assessment Encounter Date Assessment Date Assessment LastModified by Organization Details LastModified Time 12/17/2023 12/17/2023 Audiometric testing is stable compared with previous. Recommend she follow-up with her booth manager for adjustment of her hearing aids. Her daughter describes an upcoming appointment with a new booth manager. Her secondary concern of chronic cough with [...] audio gram No observ ation record ed. [email or web address] Not Available 09/2023 08:35:58 Result Notes None recorded. Problems Name Problem SNOMED Code Status Onset Date Resolution Date Notes Provider Name and Address Organization Details Recorded Time Sensorineu ral hearing loss of bilateral ears 774380522 Active 2021 Sensorineu ral hearing loss, bilateral; Note: Date Diagnosed: 09/27/2021 10:27 AM (H90.3) VALERIE PHAM MD [address] [place] [address], [phone], [facility] - [facility] 12:27:39 Chronic cough 53867129 Active 2023 VALERIE PHAM MD [address] [place] [address], [place], [phone], [facility] [place] 14:17:53 Biliary cirrhosis 6361100 Active 2023 VALERIE PHAM MD [address] [place] [address], [phone], [facility] - [facility] [place] 14:18:44 Problem Notes None recorded. Procedures Surgical History Date Name Laterality Status Provider Name and Address Organization Details Recorded Time 12/17/19 24 FOL_DP completed VALERIE PHAM MD [address] [place] [address], [phone], [facility] - [facility] [place] 12/17/2023 14:17:43 12/17/19 24 Air only Audio (18277) completed Blanca Roberts [facility] [place] 12/17/2023 13:16:39 12/17/19 24 Tympanometry (81297) completed Blanca Roberts [place] [facility] 12/17/2023 13:16:46 Imaging Results Imaging Date Name Status LastModified by [facility] Details LastModified Time 09/27/2021 imaging/diagno stic result completed Information not available 12/01/2023 14:07:32 09/27/2021 imaging/diagno stic result completed Information not available 12/01/2023 14:07:33 09/27/2021 imaging/diagno stic result completed Information not available 12/01/2023 14:07:34 09/27/2021 audiogram completed Information not available 12/01/2023 14:07:38 12/18/2023 audiogram completed [email or web address] Information n ot available 12/18/2023 08:35:58 Procedure Notes None recorded. Medical Equipment None Reported. Allergies Allergen ID Allergen Name Allergen Category Reaction Reaction Severity Criticality Documentation Date Start Date Code Code System Note Provider Name and Address Organization Details Recorded Time 754086 clonidine medicatio n other Not available Not available 08/25/2023 2599 RxNorm React ion: Unkno wn; Not Available [facility] 4 01:11:22 332091 naproxen medicatio n other Not available Not available 08/25/2023 7258 RxNorm React ion: Unkno wn; Not Available [facility] 4 01:11:23 467218 Substance with sulfonami de structure and antibacte rial mechanism of action (substanc e) medicatio n other Not available Not available 08/25/2023 48180 8003 SNOMED React ion: Unkno wn; Not Available [facility] 4 01:11:24 579150 lisinopri l medicatio n other Not available Not available 08/25/2023 62851 RxNorm React ion: Unkno wn; Not Available [facility] 4 01:11:25 140642 Penicilli n Not available other Not available Not available 08/25/2023 16838 RxNorm React ion: Unkno wn; Not Available [facility] 4 01:11:27 Medications Name Sig Start Date Stop Date Status Note LastModified by Organization Details LastModified Time nifedipine ER 30 mg tablet,ext ended release 24 hr active Medicatio n ID: [id number] Br and Name: nifedipin e Send Method: E-Prescri bed Subs Allowed: subs [place] Medica tionGener icName: nifedipin e Not Available Not Available [...] Available Not Available No t Available econazole nitrate 1 % topical cream APPLY TO AFFECTED [...] mg/gram) vaginal cream active Medicatio n ID: [id number] Br and Name: estradiol Send Method: E-Prescri [...] Updated DateTime 12/17/2023 162.56 cm 28.3 kg/m2 48529.74 g Odilia Abraham MA - [facility] 12/17/2023 13:48:27 Social History None recorded. Functional Status None recorded. Mental Status None recorded. Family History Nothing Reported. Medical History No medical history recorded. Gynecological HistoryNo gynecological history recorded. Obstetrics History GPAL:G 0 P 0 0 0 0 Past Encounters Encounter ID Performer Location Encounter Start Date Encounter Closed Date Diagnosis/Indication Diagnosis SNOMED-CT Code Diagnosis ICD10 Code Diagnosis Note [id number] VALERIE PHAM MD [facility] [address] [phone] 12/17/2023 12:47:59 12/17/2023 14:23:03 Sensorineural hearing loss of bilateral ears 551340097 H90.3 Audiologic al evaluation results: Right ear: [...] not maintain a hermetic seal}} Chronic cough 03276315 R 05.3 Biliary cirrhosis 531751 6 K74.5 Health Concerns Section Related Observation LastModified by Organization Detai ls LastModified Time None Recorded Concern Status LastModified by Organization Details LastModified Time None Recorded Advance Directives Directive None Recorded Payers Encounter Date Sequence Insurance Name Policy Number Policy Alonso Covered Member ID Alonso Member ID Guarantor Name 12/17/2023 1 [facility] [id number] [place] Notes Date Note Type Note Provider Name and Address Organization Details Recorded Time 12/17/2023 text/html [place] - daughterhearing loss 09/27/2021 audio right ear normal sloping to moderate sensorineuralLeft ear normal sloping to moderate-severe sensorineural hearing aid evaluation recommended in [facility] hearing aids 2021 in [place] - but they closed second concern of a dry coughonset 2019xray was clearcough medication liquid from PCP was not helpful+nocturnal coughOSA - on CPAPworks with Dr Forte for liver primary biliary cirrhosis VALERIE PHAM MD [address] [place] [address], [phone], [facility] - [facility] 12/17/2023 14:21:09 OBGyn Episode No OBEpisode recorded.
--- OUTSIDE RECORDS SUMMARY | 2024-06-08 07:44 | XMS_ITS | Encounter Summary ---
Author Organization [facility] Address [address] [place] [address] Care Team Providers Care Factory Clerk Name Role Phone Leah Nazario MD Primary Care Provider [phone] Reason for Visit * Reason Onset Date Comments DME request 05/16/2024 Encounter Details Date Type Department Care Team (Late Contact Info) Description 05/16/2024 Telephone [facility] [address] [phone] Rekha Goodman MA DME request Social History Tobacco Use Types Packs/Day Years Used Date Smoking Tobacco: Never Smokeless Tobacco: Never Alcohol Use Standard Drinks/Week Comments No 0 (1 standard drink = 0.6 oz pur e alcohol) Comments Unknown Sex and Gender Information Value Date Recorded Sex Assigned at Not on file Legal Sex Female 7:39 PM EST Gender Identity Not on file Sexual Orientation Not on file documented as of this encounter Progress Notes * Rekha Goodman MA - 05/16/2024 11:47 AM EST Order for CPAP revision faxed to [facility]. Fax confirmation received. documented in this encounter Plan of Treatment Upcoming Encounters Date Type Department Care Team (Late Contact Info) Description 06/21/2024 10:00 AM EDT [facility] [address] [facility] [address] [place] [phone] Charmaine Clark MD [address] [place] [address] [address] [place] [address] documented as of this encounter Visit Diagnoses Not on filedocumented in this encounter Care Teams Factory Clerk Relationship Specialty Start Date End Date Leah Nazario MD PCP - General Internal Medicine 01/31/20 documented as of this encounter
--- OUTSIDE RECORDS SUMMARY | 2024-06-08 07:44 | XMS_ITS | Clinical Summary ---
Author Organization 175 [facility] Address 175 [place] [address] Phone Care Team Providers Care Care Transition Manager Name Role Phone Leah Nazario MD Primary Care Provider [phone] Allergies Active Allergy Reactions Criticality Noted Date Comments Clonidine Unknown 06/28/2009 Hydrochlorothiazide Unknown 01/29/2024 Lisinopril Unknown 06/28/2009 Naproxen Unknown 06/28/2009 Penicillins Rash 06/28/2009 Sulfa (Sulfonamide Antibiotics) 12/13 Medications estradioL (ESTRACE) 0.01 % (0.1 mg/gram) vaginal cream Insert 1 g into the vagina at bedtime. 7 Active fluticasone propionate (FLONASE) 50 mcg/actuation nasal spray Administer 1-2 sprays into each nostril 1 (one) time each day. 6 Active hydroCHLOROthia zide (HYDRODIURIL) 25 mg tablet Take 1 tablet (25 mg total) by mouth 1 (one) time each day. 4 Active levothyroxine (SYNTHROID, LEVOTHROID) 25 mcg tablet Take 2 tablets (50 mcg total) by mouth 1 (one) time each day. 4 Active olmesartan (BENICAR) 40 mg tablet Take 1 tablet (40 mg total) by mouth 1 (one) time each day. 4 Active olmesartan-amLO DIPin-hcthiazid 40-5-25 mg tablet Take by mouth Active pantoprazole (PROTONIX) 40 mg EC tablet Take 1 tablet (40 mg total) by mouth 2 (two) times a day. 4 Active pravastatin (PRAVACHOL) 20 mg tablet Take 1 tablet (20 mg total) by mouth 1 (one) time each day. Active triamcinolone (KENALOG) 0.025 % cream APPLY SPARINGLY TO AFFECTED AREA(S) THREE TIMES A DAY 6 Active umeclidinium-vi lanteroL (ANORO ELLIPTA) 62.5-25 mcg/actuation inhaler Inhale into the lungs Active ursodioL (ACTIGALL) 250 mg tablet Take 1 tablet (250 mg total) by mouth 3 (three) times a day. 7 Active colchicine (COLCRYS) 0.6 mg tablet Take 1 tablet (0.6 mg total) by mouth 1 (one) time each day. Active fluticasone-emo llient no.65 0.05 % kit,lotion and cream,emollient Apply topically. - Apply externally Active fluticasone furoate-vilante roL (Breo Ellipta) 100-25 mcg/dose inhaler Inhale 1 puff by mouth 1 (one) time each day. 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 I did spend some time discussing with her and her daughter the findings on her CAT scans as described in HPI. We also discussed pulmonary nodules in general and how their size, shape, and change (or lack of) over time affect her level of suspicion for malignancy. She also spent some time talking about a cough that she has which may or not be related to this nodule and a sensation of something in her throat that she cannot get up which I do not think is related to her nodule. She also had many questions about her inhalers which I directed to her wire inspector. I do not think there is any follow-up imaging that needs to be done and she can follow-up with me on an as-needed basis moving forward. She also had many questions about her thyroid nodule which I also directed her towards her primary care. All questions were answered. Kidney stone 01/12/2020 Overview (01/29/2024): 2019 lithotripsy Lumbar spinal stenosis 01/12/2020 Gallbladder polyp 01/03/2020 Primary biliary cirrhosis 01/03/2020 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 Overview (01/29/2024): S/p QUIROGA Restless legs syndrome 06/08/2012 Dermatophytosis of nail 02/03/2012 Encounters Date Type Department Care Team Description 05/16/2024 Telephone Pulmonolgy - [place] [address] [phone] Rekha Goodman MA DME request 05/10/2024 Telephone Pulmonolgy - [place] [address] [phone] Charmaine Clark MD dme request 03/21/2024 Telephone [facility] - [place] [address] [phone] Rekha Goodman MA DME request (Order for replacement CPAP sent to [facility]. Fax confirmation was received.) 03/16/2024 9:30 AM EST Office Visit Pulmonolgy - [place] [address] [phone] Charmaine Clark MD Cough, unspecified type (Primary Dx); Abnormal chest CT; MITRA on CPAP from Last 3 Months Surgical History Surgery Date Site/Laterality Comments HERNIA REPAIR PROCEDURE: REPAIR UMBILICAL HERNIA LITHOTRIPSY PROCEDURE: HISTORICAL LITHOTRIPSY EYE SURGERY Bilateral PROCEDURE: HISTORICAL EYE SURGERY; COMMENT: blepharoplasty COLONOSCOPY 11/29/2018 PROCEDURE: HISTORICAL COLONOSCOPY Medical History Medical History Date Comments Hyperlipidemia 11/20/2016 DX:Hyperlipidemi a Kidney stone 01/12/2020 DX:Kidney stone; COMMENT: 2019 lithotripsy Lumbar spinal stenosis 01/12/2020 DX:Lumbar spinal stenosis Mild intermittent asthma, uncomplicated 01/11/2024 DX:Mild intermittent asthma, uncomplicated COPD (chronic obstructive pu lmonary disease) (CMS/HCC) 01/11/2024 DX:COPD (chronic obstructive pulmonary disease) (HCC) Essential (primary) hypertension 01/11/2024 DX:Essential (primary) hypertension Gallstones 01/11/2024 DX:Gallstones Hypothyroidism 01/11/2024 DX:Hypothyroidis m Multiple thyroid nodules 01/11/2024 DX:Mult iple thyroid nodules Primary biliary cirrhosis (CMS/HCC) 01/11/2024 DX:Primary biliary cirrhosis (HCC) Family History Medical History Relation Name Comments Hypertension Brother 2 brothers Hyperthyroidism Daughter Relation Name Status Comments Brother Daughter Social History Tobacco Use Types Packs/Day Years Used Date Smoking Tobacco: Never Smokeless Tobacco: Never Tobacco Cessation:Counseling Given: Not Answered Alcohol Use Standard Drinks/Week Comments No 0 (1 standard drink = 0.6 oz pur e alcohol) Comments Unknown Sex and Gender Information Value Date Recorded Sex Assigned at Not on file Legal Sex Female 7:39 PM EST Gender Identity Not on file Sexual Orientation Not on file Obstetrics History Last Filed Vital Signs Vital Sign Reading Time Taken Comments Blood Pressure 137/59 03/16/2024 9:51 AM EST Pulse 62 03/16/2024 9:51 AM EST Temperature 36.8 ??C (98.2 ??F) 03/16/2024 9:51 AM ES T Respiratory Rate 20 03/16/2024 9:51 AM EST Oxygen Saturation 98% 03/16/2024 9:51 AM EST Inhaled Oxygen Concentration - - Weight 76.6 kg (168 lb 12.8 oz) 03/16/2024 9:51 AM EST Height 160 cm (5' 3 ) 03/16/2024 9:51 AM EST Body Mass Index 29.9 03/16/2024 9:51 AM EST Plan of Treatment Upcoming Encounters Date Type Department Care Team (Late st Contact Info) Description 06/21/2024 10:00 AM EDT Office Visit Pulmonolgy - [place] 175 [facility] [address] [place] [phone] Charmaine Clark MD [address] [place] [address] [address] [place] [address] Health Maintenance Due Date Last Done Comments DTaP,Tdap,and Td Vaccines (1 - Tdap) 1959 Pneumococcal Vaccine: 50+ Ye ars (1 of 2 - PCV) 1959 Zoster Vaccines (1 of 2) 1990 RSV Immunization Patients 60 + Years Old (1 - 1-dose 75+ series) 2015 Cholesterol Screening (Lipid Panel) 03/15/2022 Depression Screening 03/15/2022 Falls Risk Assessment 03/15/2022 Medicare Annual Wellness Visit 03/15/2022 Osteoporosis Screening (Bone Density Screening) 03/15/2022 Social Influencers of Health Screening 03/15/2022 Hypertension/CHF/CAD Annual BMP Blood Test 03/29/2022 COVID-19 Vaccine ( - 2023-2 5 season) 2023 Influenza Vaccine (#1) 2023 HIB Vaccines Aged Out No longer eligi ble based on patient's age to complete this topic HPV Vaccines Aged Out No longer eligi ble based on patient's age to complete this topic Hepatitis A Vaccines Aged Out No long er eligible based on patient's age to complete this topic Hepatitis B Vaccines Aged Out No long er eligible based on patient's age to complete this topic IPV Vaccines Aged Out No longer eligi ble based on patient's age to complete this topic MMR Vaccines Aged Out No longer eligi ble based on patient's age to complete this topic Meningococcal ACWY Vaccine Aged Out N o longer eligible based on patient's age to complete this topic Meningococcal B Vacine Aged Out No lo nger eligible based on patient's age to complete this topic RSV Immunization Patients Un rock 20 months Aged Out No longer eligible b ased on patient's age to complete this topic Varicella Vaccines Aged Out No longer eligible based on patient's age to complete this topic Procedures Procedure Name Priority Date/Time Associated Diagnosis Comments [place] SLEEP STUDY ATTENDED 05/04/2024 from Last 3 Months Results * General sleep study (05/04/2024) us Provider [facility] ORDERABLES Final Result from Last 3 Months Insurance [employer] MEDICARE Member Subscriber Plan / Payer (Ef fective 2018-Present) Name:Jordana Browne Relation to Subscriber:Self Name:Jordana Browne Payer ID:[id number] Group ID:[id number] Type:Not on file Address: [place] [address] [address] [id number] Care Teams Care Transition Manager Relationship Specialty Start Date End Date Leah Nazario MD PCP - General Internal Medicine 01/31/20
--- OUTSIDE RECORDS SUMMARY | 2024-06-08 07:44 | XMS_ITS | Encounter Summary ---
Author Organization [facility] Address [address] [place] [address] Care Team Providers Care Crystal Calibrator Name Role Phone Leah Nazario MD Primary Care Provider [phone] Reason for Visit * Reason Onset Date Comments dme request 05/10/2024 Encounter Details Date Type Department Care Team ([facility] st Contact Info) Description 05/10/2024 Telephone [facility] [place] [address] [phone] Charmaine Clark MD 175 [place] [address] dme request Social History Tobacco Use Types Packs/Day [...] as of this encounter Progress Notes * Charmaine Clark MD - 05/12/2024 3:49 PM EST Please send new prescription for AutoPap changed to 8-14 cm H2O. * Alicja Meléndez MA - 05/12/2024 9:07 AM EST Compliance printed placed in provider review folder * Charmaine Clark MD - 05/11/2024 7:09 PM EST Her CPAP is a new machine. Can you please obtain her compliance report. I will adjust accordingly. * Rekha Goodman MA - 05/11/2024 10:[address] Clark Can we send in an order for pressure change * Elizabeth Coto - 05/10/2024 9:19 AM EST Patients daughter is calling because her mom is having a hard time with her cpap machine . When they [facility] they told them that she needed to call provider to change the settings on cpap pressure. She is calling because [facility] told her they sent us a fax with what was being requested from provider. Fax is on pt onbase chart , she is asking if provider can send prescription to change pressure because they have been waiting for over a week now. Please advice documented in this encounter Plan of Treatment Upcoming Encounters Date Type Department Care Team (Late st Contact Info) Description 06/21/2024 10:00 AM EDT Office Visit Pulmonolgy - [place] 175 [facility] [address] [place] [phone] Charmaine Clark MD 175 [facility] 200 [place] [address] documented as of this encounter Visit Diagnoses Not on filedocumented in this encounter Care Teams Crystal Calibrator Relationship Specialty Start Date End Date Leah Nazario MD PCP - General Internal Medicine 01/31/20 documented as of this encounter
== END 2024-06-08 08:51 | disposition home or self-care (01) ==
PROVIDERS: PCP Internal Medicine; Visit Provider Internal Medicine
DX: R05.9 Cough, unspecified (principal); I10 Essential (primary) hypertension; K74.3 Primary biliary cirrhosis

== ENCOUNTER → 2024-06-08 07:40 | Outpatient (BNVA) | payer OTHER, SELFPAY | PROVIDERS: PCP Internal Medicine; Visit Provider Internal Medicine | DX: R05.9 Cough, unspecified (principal); I10 Essential (primary) hypertension; K74.3 Primary biliary cirrhosis | CPT/HCPCS: 99212 ==

== ENCOUNTER 2024-07-07 08:37 | Outpatient (AMB) | payer OTHER, SELFPAY ==
[2024-07-07 08:39] VITALS: BP 142/80; PULSE 69; RESP 18; TEMP 36.8; O2SAT 96; BMI 30.5
--- NOTE | 2024-07-07 08:39 | A.OFFPC_ITS ---
Vital Signs 07/07/24 08:39 Height 5 ft 3 in Weight 172 lb BMI 30.5 BP 142/80 H Blood Pressure Location Lt brachial Position Sitting Respiration 18 Pulse 69 Pulse Source Pulse Oximeter Temp 98.2 F Temp Source Oral Pulse Oximetry (%) 96 Oxygen Delivery Method Room Air Intake Visit Reasons: 1m follow up Intake Note: Pt is here today for 1 month follow up visit Allergies clonidine [CLONIDINE] Allergy (Unknown, Verified 07/07/24 08:53) UNKNOWN naproxen [NAPROXEN] Allergy (Unknown, Verified 07/07/24 08:53) UNKNOWN penicillin V Allergy (Unknown, Verified 07/07/24 08:53) Itching Penicillins [PENICILLINS] Allergy (Unknown, Verified 07/07/24 08:53) itching Sulfa (Sulfonamide Antibiotics) [SULFA (SULFONAMIDE ANTIBIOTICS)] Allergy (Unknown, Verified 07/07/24 08:53) n/a nifedipine Adverse Reaction (Intermediate, Verified 07/07/24 08:53) leg swelling triamterene Adverse Reaction (Intermediate, Verified 07/07/24 08:53) Fainting umeclidinium [From Anoro Ellipta] Adverse Reaction (Intermediate, Verified 07/07/24 08:53) Cough vilanterol [From Anoro Ellipta] Adverse Reaction (Intermediate, Verified 07/07/24 08:53) Cough lisinopril [LISINOPRIL] Adverse Reaction (Unknown, Verified 07/07/24 08:53) Cough Medication List - Last Reconciled 07/07/24 by Leah Nazario MD amlodipine 5 mg PO DAILY aspirin 81 mg PO DAILY aypvysefup-zepjekvv-rmufyrizkr 160-9-4.8 mcg/actuation (Breztri Aerosphere) 2 inhalations inhalation BID cetirizine 10 mg PO BEDTIME colchicine 0.6 mg PO BID compr.stocking,thigh,reg,x-lrg 15-25 mmHg econazole nitrate 1% 1 appl topical DAILY estradiol 0.01%(0.1mg/gram) grams vaginal fluticasone propionate 50 mcg/actuation 1 spray intranasal DAILY hydrochlorothiazide 25 mg PO DAILY hydrocortisone 2.5% 1 appl NV BID-QID PRN levothyroxine 50 mcg PO DAILY lidocaine 5% 1 ea topical .QD olmesartan 40 mg PO DAILY omeprazole 20 mg PO DAILY pravastatin 20 mg PO DAILY triamcinolone acetonide 0.025% appl topical BID triamcinolone acetonide 0.1% 1 appl dental BID ursodiol 1,000 mg PO DAILY Tobacco use date assessed: 07/07/24 Fall risk assessment: No Falls in past year Last assessed Fall Risk: 07/07/24 Dental Screening Dental Screen Date: 07/07/24 Did you have a dental visit in the last 12 months?: Yes Did you have a dental problem in the last 6 months where you did not have access to dental care?: No Was dental information given to patient?: Patient has dentist HPI 1m follow up HPI Details Pt presents for f/u HTN, hypothyroidism hyperlipidemia COPD better controlled on Breztri inhaler PFSH Medical History Abnormal mammogram of left breast Pain of right thumb Edema Abnormal mammogram Primary biliary cirrhosis Lumbar spinal stenosis Osteoarthritis of left hip Vitamin D deficiency Gallbladder polyp Microscopic hematuria Multinodular goiter HTN (hypertension) Surgical History H/O colonoscopy No pertinent past surgical history Family History Father No problems noted. Mother No problems noted. Social History Housing: House Alcohol intake: never Patient Tobacco Use Status: Never used Tobacco e-Cigarette/Vaping Use: Never Used Second Hand Smoke Exposure: No service: No Current occupational status: retired Current occupation: rt hand Current occupational exposures/hazards: No Cognitive needs: No Hearing needs: No Vision needs: Yes Questionnaire Thrive Questionnaire Date Thrive assessed: 11/30/23 I am a: Patient What is your living situation today?: I have a steady place to live Within the past 12 months, did the food you bought not last and you didn't have the money to get more?: Never true Within the past 12 months, did you worry whether your food would run out before you got money to buy more?: Never true Do you have trouble paying for medicines?: No Do you have trouble getting transportation to medical appointments?: No Do you have trouble paying your heating and electricity bill?: No Do you have trouble taking care of your child, family member or friend?: No Do you have trouble with day-to-day activities such as bathing, preparing meals, shopping, managing finances, etc.?: No Are you currently unemployed and looking for a job?: No Are you interested in more education?: No Please select the resources that you would like help with: None Currently or been in a relationship where the following occur: No concerns reported THRIVE Score: 0 MSITY-7 AMB Questionnaire MISTY-7 Date MISTY - 7 assessed: 04/21/24 Source: Developed by Drs. Jaime Alexandre, Shannan Farah, Francisco Garcia and colleagues, with an educational laura from [employer]. Review of Systems Const All systems reviewed & are unremarkable except as noted in HPI and below ENT Reports no additional complaints Card Reports no additional complaints Resp Reports no additional complaints GI Reports no additional complaints Reports no additional complaints Physical exam (Primary Care) Vital Signs: Last Vital Signs Temp 98.2 F 07/07/24 08:39 Pulse 69 07/07/24 08:39 Resp 18 07/07/24 08:39 BP 142/80 H 07/07/24 08:39 Pulse Ox 96 07/07/24 08:39 Oxygen Delivery Method Room Air 07/07/24 08:39 BMI result Body Mass Index 30.5 Tobacco/Smoking Status: Tobacco use Status Tobacco use date assessed 07/07/24 07/07/24 08:41 Patient Tobacco Use Status Never used Tobacco 07/07/24 08:41 e-Cigarette/Vaping Use Never Used 07/07/24 08:41 Thrive Assessment: Date of Thrive Assessment Date Thrive assessed 11/30/23 07/07/24 08:41 Currently or been in a relationship where the following occur: No concerns reported Const General: no acute distress HENMT Head: Yes normal to inspection Mouth: Normal oral and palatal mucosa present Eyes General: appearance normal, both eyes and all related structures Neck Neck: Yes supple Resp Effort & Inspection: normal respiratory effort Auscultation: clear to auscultation bilaterally Cardio Rhythm: regular rhythm Heart sounds: S1 normal heart sound present and S2 normal heart sound present GI Inspection: Yes normal to inspection Palpation (GI): Soft to palpation Percussion: Yes normal to percussion Auscultation: normal bowel sounds Coding Level of Care Code Est Pt Level 4 (30745) Diagnoses Cough R05.9 HTN (hypertension) I10 Primary biliary cirrhosis K74.3 Assessment & Plan Assessment & Plan (1) Cough: Comment: chronic, established with mirror inspector and mems process engineer. Patient could not tolerate steroid inhalers and Anoro Code(s): R05.9 - Cough, unspecified Category: Medical Plan: Continue Breztri, and follow-up with mems process engineer (2) HTN (hypertension): Comment: BP < 130/80 Code(s): I10 - Essential (primary) hypertension Category: Medical Plan: Continue hydrochlorothiazide olmesartan and add amlodipine 5 mg. Patient will follow-up in 1 month (3) Primary biliary cirrhosis: Comment: f/u Code(s): K74.3 - Primary biliary cirrhosis Category: Medical Plan: Continue current medications follow-up with GI Medications: New olmesartan 40 mg PO DAILY 90 tabs 3RF Refilled fluticasone propionate 50 mcg/actuation 1 spray intranasal DAILY 15.8 mL 5RF pravastatin 20 mg PO DAILY 90 tabs 3RF amlodipine 5 mg PO DAILY 30 tabs 1RF
--- OUTSIDE RECORDS SUMMARY | 2024-07-07 09:11 | XMS_ITS | Encounter Summary ---
Author Organization [facility] Address [address] [place] [address] Care Team Providers Care Cell Tower Climber Name Role Phone Leah Nazario MD Primary Care Provider [phone] Reason for Visit * Reason Onset Date Comments dme request 05/10/2024 Encounter Details Date Type Department Care Team ([facility] st Contact Info) Description 05/10/2024 Telephone [facility] [place] [address] [phone] Charmaine Clark MD 175 [place] [address] dme request Social History Tobacco Use Types [...] Care Team (Late st Contact Info) Description 01/31/2025 9:45 AM EDT Office Visit Pulmonolgy - [place] 175 [facility] [address] [place] [phone] Charmaine Clark MD [address] [facility] 200 [place] [address] documented as of this encounter Visit Diagnoses Not on filedocumented in this encounter Care Teams Cell Tower Climber Relationship Specialty Start Date End Date Leah Nazario MD PCP - General Internal Medicine 01/31/20 06/20/24 documented as of this encounter
--- OUTSIDE RECORDS SUMMARY | 2024-07-07 09:11 | XMS_ITS | Clinical Summary ---
Author Organization 175 [facility] Address [address] [place] [address] Phone Care Team Providers Care Preschool Disability Teacher Name Role Phone Leah Nazario MD Primary Care Provider Allergies Active Allergy Reactions Criticality Noted Date Comments Clonidine Unknown 06/28/2009 Hydrochlorothiazide Unknown 01/29/2024 Lisinopril Unknown 06/28/2009 Naproxen Unknown 06/28/2009 Penicillins Rash 06/28/2009 Sulfa (Sulfonamide Antibiotics) 12/13 Medications estradioL (ESTRACE) 0.01 % (0.1 mg/gram) vaginal cream Insert 1 g into the vagina at bedtime. 7 Active hydroCHLOROthi azide (HYDRODIURIL) 25 mg tablet Take 1 tablet (25 mg total) by mouth 1 (one) time each day. 4 Active olmesartan (BENICAR) 40 mg tablet Take 1 tablet (40 mg total) by mouth 1 (one) time each day. 4 Active pravastatin (PRAVACHOL) 20 mg tablet Take 1 tablet (20 mg total) by mouth 1 (one) time each day. Active ursodioL (ACTIGALL) 250 mg tablet Take 1 tablet (250 mg total) by mouth 3 (three) times a day. 7 Active colchicine (COLCRYS) 0.6 mg tablet Take 1 tablet (0.6 mg total) by mouth 1 (one) time each day. Active montelukast (SINGULAIR) 10 mg tablet Take 1 tablet (10 mg total) by mouth 1 (one) time each day. 5 Active Breztri Aerosphere 160-9-4.8 mcg/actuation HFA aerosol inhaler inhaler Inhale 2 puffs by mouth 2 (two) times a day. 5 Active levothyroxine (SYNTHROID, LEVOTHROID) 50 mcg tablet Take 1 tablet (50 mcg total) by mouth 1 (one) time each day. Active fluticasone propionate (FLONASE) 50 mcg/actuation nasal spray Administer 1-2 sprays into each nostril 1 (one) time each day. 6 06/22/19 25 Discontinu ed(Prescri kristie Discontinu ed) levothyroxine (SYNTHROID, LEVOTHROID) 25 mcg tablet Take 2 tablets (50 mcg total) by mouth 1 (one) time each day. 4 06/22/19 25 Discontinu ed(Prescri kristie Discontinu ed) olmesartan-amL ODIPin-hcthiaz id 40-5-25 mg tablet Take by mouth 06/22/19 25 Discontinu ed(Prescri kristie Discontinu ed) pantoprazole (PROTONIX) 40 mg EC tablet Take 1 tablet (40 mg total) by mouth 2 (two) times a day. 4 06/22/19 25 Discontinu ed(Prescri kristie Discontinu ed) triamcinolone (KENALOG) 0.025 % cream APPLY SPARINGLY TO AFFECTED AREA(S) THREE TIMES A DAY 6 06/22/19 25 Discontinu ed(Prescri kristie Discontinu ed) umeclidinium-v ilanteroL (ANORO ELLIPTA) 62.5-25 mcg/actuation inhaler Inhale into the lungs 06/22/19 25 Discontinu ed(Prescri kristie Discontinu ed) fluticasone-em ollient no.65 0.05 % kit,lotion and cream,emollien t Apply topically. - Apply externally 06/22/19 25 Discontinu ed(Prescri kristie Discontinu ed) fluticasone furoate-vilant Radha (Breo Ellipta) 100-25 mcg/dose inhaler Inhale 1 puff by mouth 1 (one) time each day. 06/22/19 25 Discontinu ed(Prescri kristie Discontinu ed) Active Problems Problem Noted Date Diagnosed Date [...] her inhalers which I directed to her psychiatric nursing aide. I do not think there is any [...] Encounters Date Type Department Care Team Description 06/21/2024 10:00 AM EDT Office Visit Pulmonolgy [facility] [address] [facility] [address] [place] [phone] Charmaine Clark MD COPD with asthma (CMS/HCC) (Primary Dx); MITRA (obstructive sleep apnea); Lung nodule; Chronic cough 05/16/2024 [facility] [address] [place] [phone] Rekha Goodman MA DME request 05/10/2024 Telephone Pulmonolgy [facility] [address] [phone] Charmaine Clark MD dme request from Last 3 Months Surgical History Surgery [...] (CMS/HCC) 01/11/2024 DX:COPD (chronic obstructive pulmonary disease) ([facility]) Essential (primary) hypertension 01/11/2024 DX:Essential (primary) hypertension Gallstones 01/11/2024 DX:Gallstones Hypothyroidism 01/11/2024 DX:Hypothyroidis m Multiple thyroid nodules 01/11/2024 DX:Mult iple thyroid nodules Primary biliary cirrhosis 01/11/2024 DX:Alice nawaf biliary cirrhosis (HCC) Family History Medical History [...] Sign Reading Time Taken Comments Blood Pressure 118/72 06/21/2024 10:07 AM EDT Pulse 65 06/21/2024 10:07 AM EDT Temperature 35.9 ??C (96.7 ??F) 06/21/2024 10:07 AM E DT Respiratory Rate 16 06/21/2024 10:07 AM EDT Oxygen Saturation 97% 06/21/2024 10:07 AM EDT Inhaled Oxygen Concentration - - Weight 79.1 kg (174 lb 6.4 oz) 06/21/2024 10:07 AM EDT Height 152.4 cm (5') 06/21/2024 10:07 AM EDT Body Mass Index 34.06 06/21/2024 10:07 AM EDT Plan of Treatment Upcoming Encounters Date Type Department Care Team ([facility] st Contact Info) Description 01/31/2025 9:45 AM EDT Office Visit Pulmonolgy - [place] [address] [phone] Charmaine Clark MD [address] [phone] Health Maintenance Due Date Last Done Comments [...] Procedure Name Priority Date/Time Associated Diagnosis Comments HI SLEEP STUDY ATTENDED 05/04/2024 from Last 3 Months Results * General sleep study (05/04/2024) Provider [facility] ORDERABLES Final Result from Last 3 Months Insurance [facility] MEDIC[facility] Member Subscriber Plan / Payer (Ef fective 2018-Present) Name:Zaria Brownea Relation to Subscriber:Self Name:Zaria Brownea Payer ID:[id number] Group ID:[id number] Type:Not on file Address: [place] [address] [address] [phone] Care Teams Preschool Disability Teacher Relationship Specialty Start Date End Date Leah Nazario MD PCP - General Internal Medicine 06/21/24
--- OUTSIDE RECORDS SUMMARY | 2024-07-07 09:11 | XMS_ITS | Encounter Summary ---
Author Organization [facility] Address [address] [place] [address] Care Team Providers Care Spot Billing Clerk Name Role Phone Leah Nazario MD Primary Care Provider [phone] Reason for Referral * Imaging (Routine) - Pending Review Specialty Diagnoses / Procedures Referred By Aparna miranda Referred To Contact Radiology Diagnoses COPD with asthma (CMS/HCC) Procedures CT Chest wo Contrast Charmaine Clark MD [address] [address] Phone: tel: fax: [facility] Referral ID Status Reason Start Date Expiration Date V isits Requested Visits Authorized [id number] Pending Review 06/21/2024 06/21/2025 1 1 Encounter Details Date Type Department Care Team (Late st Contact Info) Description 06/21/2024 10:00 AM EDT Office Visit Pulmonolgy - [place] 175 [facility] [address] [place] [phone] Charmaine Clark MD [address] [phone] COPD with asthma (CMS/HCC) (Primary Dx); MITRA (obstructive sleep apnea); Lung nodule; Chronic cough Social History Tobacco Use Types Packs/Day Years [...] on file documented as of this encounter Last Filed Vital Signs Vital Sign Reading [...] Mass Index 34.06 06/21/2024 10:07 AM EDT documented in this encounter Progress Notes * Charmaine Clark MD - 06/21/2024 10:00 AM EDT ADULT PULMONARY Followup CHIEF COMPLAINT or REASON FOR CONSULTATION: No chief complaint on file. Last seen 03/16/24 HISTORY OF PRESENT ILLNESS: Jordana Browne is a 84 y.o. 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 Sleep study [facility] 2017. STEFF cough. Sleep study, [facility] on 03/26/2012 positive, w/ titration study optimal CPAP pressure of 8 cm water. Record from Dr. Tan, 06/02/2016, [facility] group, patient history of MITRA was compliant, machine broke in 2017, new machine was placed. No longer function. 01/19/2024 [facility] homestudy LESLIE 6 events per hour. COVID vaccinations: Pfizer None Smoker. Minimal 2nd hand smoke exposure, from son. 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 No occupation chemical fume exposure. No tuberculosis or asbestos exposure. Born in [place] Pets: No pets. FH: No FH of lung disease or cancer. Oxford Sleepiness Scale Sitting and reading: Moderate chance of dozing Watching TV: Moderate chance of dozing Sitting, inactive in a public place (e.g. a theatre or a meeting): Would never doze As a passenger in a car for an hour without a break: Would never doze Lying down to rest in the afternoon when circumstances permit: Moderate chance of dozing Sitting and talking to someone: Would never doze Sitting quietly after a lunch without alcohol: Would never doze In a car, while stopped for a few minutes in traffic: Would never doze Total score: 6 Compliance (05/15/24 to 06/13/24): > 4 hrs 100%, AHI 1.8, median 8.6 cm H2O, 95th % 10.2 cm H2), Maximum 11.2 cm H2O, moderate leak. Since last seen: -Patient medication has increased from Breo to Breztri -Patient has been seen by optimization specialist pending ultrasound. -Not been hospitalized: REVIEW OF SYSTEMS: Review of Systems Constitutional: Negative for chills, decreased appetite, diaphoresis, fever, malaise/fatigue and night sweats. HENT: Negative for congestion. Cardiovascular: Positive for dyspnea on exertion. Negative for chest pain, irregular heartbeat and leg swelling. Respiratory: Positive for wheezing. Negative for cough, hemoptysis, shortness of breath, snoring and sputum production. Endocrine: Negative for cold intolerance and heat intolerance. Skin: Negative for rash. Gastrointestinal: Negative for abdominal pain, constipation, diarrhea and dysphagia. Genitourinary: Negative for dysuria. ALLERGIES: Allergies Allergen Reactions Clonidine Unknown Hydrochlorothiazide Unknown Lisinopril Unknown Naproxen Unknown Penicillins Rash Sulfa (Sulfonamide Antibiotics) ACTIVE MEDICATIONS: Outpatient Medications Marked as Taking for the 06/21/24 encounter (Office Visit) with Charmaine Clark MD Medication Sig Dispense Refill Breztri Aerosphere 160-9-4.8 mcg/actuation HFA aerosol inhaler inhaler Inhale 2 puffs by mouth 2 (two) times a day. colchicine (COLCRYS) 0.6 mg tablet Take 1 tablet (0.6 mg total) by mouth 1 (one) time each day. estradioL (ESTRACE) 0.01 % (0.1 mg/gram) vaginal cream Insert 1 g into the vagina at bedtime. hydroCHLOROthiazide (HYDRODIURIL) 25 mg tablet Take 1 tablet (25 mg total) by mouth 1 (one) time each day. levothyroxine (SYNTHROID, LEVOTHROID) 50 mcg tablet Take 1 tablet (50 mcg total) by mouth 1 (one) time each day. montelukast (SINGULAIR) 10 mg tablet Take 1 tablet (10 mg total) by mouth 1 (one) time each day. olmesartan (BENICAR) 40 mg tablet Take 1 tablet (40 mg total) by mouth 1 (one) time each day. pravastatin (PRAVACHOL) 20 mg tablet Take 1 tablet (20 mg total) by mouth 1 (one) time each day. ursodioL (ACTIGALL) 250 mg tablet Take 1 tablet (250 mg total) by mouth 3 (three) times a day. PROVIDER ATTESTS THAT THE MEDICATION LIST WAS OBTAINED, REVIEWED AND UPDATED. PAST MEDICAL HISTORY: Patient Active Problem List Diagnosis Date Noted Class 1 obesity 01/29/2024 Urinary incontinence 01/29/2024 Pulmonary nodule 01/11/2024 Kidney stone 01/12/2020 Lumbar spinal stenosis 01/12/2020 Gallbladder polyp 01/03/2020 Primary biliary cirrhosis (CMS/HCC) 01/03/2020 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 Obstructive sleep apnea 09/26/2016 Asthma 07/22/2016 Goiter diffuse, nontoxic 03/24/2016 Restless legs syndrome 06/08/2012 Dermatophytosis of nail 02/03/2012 Past Surgical History: Procedure Laterality Date COLONOSCOPY 11/29/2018 PROCEDURE: HISTORICAL COLONOSCOPY EYE SURGERY Bilateral PROCEDURE: HISTORICAL EYE SURGERY; COMMENT: blepharoplasty HERNIA REPAIR PROCEDURE: REPAIR UMBILICAL HERNIA LITHOTRIPSY PROCEDURE: HISTORICAL LITHOTRIPSY Past Surgical History: Procedure Laterality Date COLONOSCOPY 11/29/2018 PROCEDURE: HISTORICAL COLONOSCOPY EYE SURGERY Bilateral PROCEDURE: HISTORICAL EYE SURGERY; COMMENT: blepharoplasty HERNIA REPAIR PROCEDURE: REPAIR UMBILICAL HERNIA LITHOTRIPSY PROCEDURE: HISTORICAL LITHOTRIPSY FAMILY HISTORY: Family History Problem Relation Name Age of Onset Hypertension Brother 2 brothers Hyperthyroidism Daughter SOCIAL HISTORY Social History Socioeconomic History Marital status: Spouse name: Not on file Number of children: Not on file Years of education: Not on file Highest education level: Not on file Occupational History Not on file Tobacco Use Smoking status: Never Smokeless tobacco: Never Substance and Sexual Activity Alcohol use: No Drug use: No Sexual activity: Not on file Other Topics Concern Not on file Social History Narrative Not on file IMMUNIZATION: There is no immunization history on file for this patient. PHYSICAL EXAM: Visit Vitals BP 118/72 Pulse 65 Temp 35.9 ??C (96.7 ??F) (Temporal) Resp 16 Ht 1.524 m (60 ) Wt 79.1 kg (174 lb 6.4 oz) SpO2 97% BMI 34.06 kg/m?? Smoking Status Never BSA 1.76 m?? Physical Exam Constitutional: General: She is not in acute distress. Appearance: Normal appearance. She is not ill-appearing. HENT: Head: Normocephalic and atraumatic. Nose: Nose normal. No congestion or rhinorrhea. Mouth/Throat: Mouth: Mucous membranes are moist. Pharynx: No oropharyngeal exudate or posterior oropharyngeal erythema. Eyes: Pupils: Pupils are equal, round, and reactive to light. Cardiovascular: Rate and Rhythm: Normal rate and regular rhythm. Pulses: Normal pulses. Heart sounds: No murmur heard. Pulmonary: Effort: No respiratory distress. Breath sounds: No stridor. No wheezing, rhonchi or rales. Comments: Slight diminished breath sound. Abdominal: General: Bowel sounds are normal. Palpations: Abdomen is soft. Tenderness: There is no abdominal tenderness. Musculoskeletal: Right lower leg: No edema. Left lower leg: No edema. Neurological: Mental Status: She is alert. Diagnostic: CURRENTS ICD-10 PULMONARY DIAGNOSIS 1. COPD with asthma (CMS/HCC) 2. MITRA (obstructive sleep apnea) 3. Lung nodule 4. Chronic cough ASSESSMENT/PLAN: 1. COPD with asthma -Pathophysiology of asthma/COPD/mixed obstructive lung disease were discussed. Treatment options ofthe various inhalers, along with techniques of use, and side effects were discussed. Maintenace of care of obstructive lung disease health such as various vaccinations, smoking cessation & avoidance of chemicals/fumes/inhalants were discussed. All questions were answered. -Continue current Breztri. -Continue current albuterol MDI, 2 puff every 6 as needed. 2. Chronic cough, multifactorial. -Awaiting for optimization specialist follow-up and ultrasound. -They had declined thyroid surgery. 3. Lung nodules, (3.0 x 2.8 x 2.7 with central cavitation), appeared to be a hematoma. -Have ordered very been seen by CTX surgeon, Dr. Barahona. -Patient and daughter would like additional follow-up CT chest, order placed for final CT chest in December 2024. -Follow up with Leah Nazario MD for the other co-morbilities. RETURN TO THE NEXT VISIT: Based on physical exam, symptomatology, tests requested and baseline pulmonary evaluation/disease, I instructed the patient to come back to see me in 6 months for reevaluation after the test has beendone or earlier if the patient needed. Thanks Leah Nazario MD for allowing me to have the opportunity to assist in the care of this patient. This chart was generated by the [employer] system and [employer] display technologies speech recognition software and may contain inherent errors or omissions not intended by the user. Grammatical errors, random word insertions, deletions, pronoun errors and incomplete sentences are occasional consequences of this technologydue to software limitations. Not all errors are caught or corrected. If there are questions or concerns about the content of this note or information contained within the body of this dictation they should be addressed directly with the author for clarification. @ELECSIG@ documented in this encounter Plan of Treatment Upcoming Encounters Date Type Department Care Team (Late st Contact Info) Description 01/31/2025 9:45 AM EDT Office Visit Pulmonolgy - [address] [place] [phone] Charmaine Clark MD [address] [phone] Scheduled Orders Name Type Priority Associated Diagnoses Orde r Schedule CT Chest wo Contrast Imaging Routine COPD with asthma (CMS/HCC) Expected: 12/23/2024, Expires: 06/21/2025 documented as of this encounter Visit Diagnoses Diagnosis COPD with asthma ([facility])- Primary MITRA (obstructive sleep apnea) Obstructive sleep apnea (adult) (pediatric) Lung nodule Other diseases of lung, not elsewhere classified Chronic cough Cough documented in this encounter Discontinued Medications Medication Sig Discontinue Reason Start Date End Da te fluticasone propionate (FLONASE) 50 mcg/actuation nasal spray Administer 1-2 sprays into each nostril 1 (one) time each day. Prescriber Discontinued 09/17/2015 06/21/2024 levothyroxine (SYNTHROID, LEVOTHROID) 25 mcg tablet Take 2 tablets (50 mcg total) by mouth 1 (one) time each day. Prescriber Discontinued 12/15/2023 06/21/2024 olmesartan-amLODIPin- hcthiazid 40-5-25 mg tablet Take by mouth Prescriber Discontinued 06/21/2024 pantoprazole (PROTONIX) 40 mg EC tablet Take 1 tablet (40 mg total) by mouth 2 (two) times a day. Prescriber Discontinued 12/22/2023 06/21/2024 triamcinolone (KENALOG) 0.025 % cream APPLY SPARINGLY TO AFFECTED AREA(S) THREE TIMES A DAY Prescriber Discontinued 09/17/2015 06/21/2024 umeclidinium-vilanter oL (ANORO ELLIPTA) 62.5-25 mcg/actuation inhaler Inhale into the lungs Prescriber Discontinued 06/21/2024 fluticasone-emollient no.65 0.05 % kit,lotion and cream,emollient Apply topically. - Apply externally Prescriber Discontinued 06/21/2024 fluticasone furoate-vilanteroL (Breo Ellipta) 100-25 mcg/dose inhaler Inhale 1 puff by mouth 1 (one) time each day. Prescriber Discontinued 06/21/2024 documented as of this encounter Historical Medications * This list may reflect changes made after this encounter. levothyroxine (SYNTHROID, LEVOTHROID) 50 mcg tablet Take 1 tablet (50 mcg total) by mouth 1 (one) time each day. Breztri Aerosphere 160-9-4.8 mcg/actuation HFA aerosol inhaler inhaler Inhale 2 puffs by mouth 2 (two) times a day. 06/20/2024 montelukast (SINGULAIR) 10 mg tablet Take 1 tablet (10 mg total) by mouth 1 (one) time each day. 05/25/2024 added in this encounter Care Teams Spot Billing Clerk Relationship Specialty Start Date End Date Leah Nazario MD PCP - General Internal Medicine 06/21/24 documented as of this encounter
--- OUTSIDE RECORDS SUMMARY | 2024-07-07 09:11 | XMS_ITS | Data Portability ---
Author Organization [place] - [facility], Allergy Address [address] [place] [phone] Assessment Encounter Date Assessment Date Assessment LastModified by Organization Details LastModified Time 12/17/2023 12/17/2023 Audiometric testing is stable compared with previous. Recommend she follow-up with her yarn conditioner for adjustment of her hearing aids. Her daughter describes an upcoming appointment with a new yarn conditioner. Her secondary concern of chronic cough with [...] audio gram No observ ation record ed. [email or web address] Not Available 09/2023 08:35:58 Result Notes None recorded. Problems Name Problem SNOMED Code Status Onset Date Resolution Date Notes Provider Name and Address Organization Details Recorded Time Sensorineu ral hearing loss of bilateral ears 191834619 Active 2021 Sensorineu ral hearing loss, bilateral; Note: Date Diagnosed: 09/27/2021 10:27 AM (H90.3) VALERIE PHAM MD [address] [place] [address], [phone], [facility] - [facility] 12:27:39 Chronic cough 62583108 Active 2023 VALERIE PHAM MD [address] [place] [address], [place], [phone], [facility] - [facility] [place] 14:17:53 Biliary cirrhosis 2744934 Active 2023 VALERIE PHAM MD [address] [place] [address], [phone], [facility] - [facility] [place] 14:18:44 Problem Notes None recorded. Procedures Surgical History Date Name Laterality Status Provider Name and Address Organization Details Recorded Time 12/17/19 24 FOL_DP completed VALERIE PHAM MD [address] [place] [address], [phone], [facility] - [facility] [place] 12/17/2023 14:17:43 12/17/19 24 Air only Audio (18338) completed Blanca Roberts [facility] [place] 12/17/2023 13:16:39 12/17/19 24 Tympanometry (89036) completed Blanca Roberts [place] [facility] 12/17/2023 13:16:46 Imaging Results Imaging Date Name Status LastModified by [facility] Details LastModified Time 09/27/2021 imaging/diagno stic result completed Information not available 12/01/2023 14:07:32 09/27/2021 imaging/diagno stic result completed Information not available 12/01/2023 14:07:33 09/27/2021 imaging/diagno stic result completed Information not available 12/01/2023 14:07:34 09/27/2021 audiogram completed Information not available 12/01/2023 14:07:38 12/18/2023 audiogram completed [email or web address] Information n ot available 12/18/2023 08:35:58 Procedure Notes None recorded. Medical Equipment None Reported. Allergies Allergen ID Allergen Name Allergen Category Reaction Reaction Severity Criticality Documentation Date Start Date Code Code System Note Provider Name and Address Organization Details Recorded Time 252294 clonidine medicatio n other Not available Not available 08/25/2023 2599 RxNorm React ion: Unkno wn; Not Available [facility] 4 01:11:22 965952 naproxen medicatio n other Not available Not available 08/25/2023 7258 RxNorm React ion: Unkno wn; Not Available [facility] 4 01:11:23 017136 Substance with sulfonami de structure and antibacte rial mechanism of action (substanc e) medicatio n other Not available Not available 08/25/2023 85428 8003 SNOMED React ion: Unkno wn; Not Available [facility] 4 01:11:24 972720 lisinopri l medicatio n other Not available Not available 08/25/2023 61999 RxNorm React ion: Unkno wn; Not Available [facility] 4 01:11:25 008922 Penicilli n Not available other Not available Not available 08/25/2023 58996 RxNorm React ion: Unkno wn; Not Available [facility] 4 01:11:27 Medications Name Sig Start Date Stop Date Status Note LastModified by Organization Details LastModified Time nifedipine ER 30 mg tablet,ext ended release 24 hr active Medicatio n ID: [id number] Br and Name: nifedipin e Send Method: [...] mg/gram) vaginal cream active Medicatio n ID: [id number] Br and Name: estradiol Send Method: E-Prescri [...] Updated DateTime 12/17/2023 162.56 cm 28.3 kg/m2 42777.74 g Odilia Abraham [place] - [facility] 12/17/2023 13:48:27 Social History None recorded. Functional Status None recorded. Mental Status None recorded. Family History Nothing Reported. Medical History No medical history recorded. Gynecological HistoryNo gynecological history recorded. Obstetrics History GPAL:G 0 P 0 0 0 0 Past Encounters Encounter ID Performer Location Encounter Start Date Encounter Closed Date Diagnosis/Indication Diagnosis SNOMED-CT Code Diagnosis ICD10 Code Diagnosis Note [id number] VALERIE PHAM MD [facility] [address] [phone] 12/17/2023 12:47:59 12/17/2023 14:23:03 Sensorineural hearing loss of bilateral ears 730185193 H90.3 Audiologic al evaluation results: Right ear: [...] not maintain a hermetic seal}} Chronic cough 92552833 R 05.3 Biliary cirrhosis 798498 6 K74.5 Health Concerns Section Related Observation LastModified by Organization Detai ls LastModified Time None Recorded Concern Status LastModified by Organization Details LastModified Time None Recorded Advance Directives Directive None Recorded Payers Encounter Date Sequence Insurance Name Policy Number Policy Alonso Covered Member ID Alonso Member ID Guarantor Name 12/17/2023 1 [facility] [id number] [place] Notes Date Note Type Note Provider Name and Address Organization Details Recorded Time 12/17/2023 text/html [place] - daughterhearing loss 09/27/2021 audio right ear normal sloping to moderate sensorineuralLeft ear normal sloping to moderate-severe sensorineural hearing aid evaluation recommended in [facility] hearing aids 2021 in [place] - but they closed second concern of a dry coughonset 2019xray was clearcough medication liquid from PCP was not helpful+nocturnal coughOSA - on CPAPworks with Dr Forte for liver primary biliary cirrhosis VALERIE PHAM MD [address] [place] [address], [phone], [facility] - [facility] 12/17/2023 14:21:09 OBGyn Episode No OBEpisode recorded.
== END 2024-07-07 09:50 | disposition home or self-care (01) ==
LOC: HO.HMCC 08:38
PROVIDERS: PCP Internal Medicine; Visit Provider Internal Medicine
DX: R05.9 Cough, unspecified (principal); I10 Essential (primary) hypertension; K74.3 Primary biliary cirrhosis

== ENCOUNTER → 2024-07-07 08:37 | Outpatient (BNVA) | payer OTHER, SELFPAY | PROVIDERS: PCP Internal Medicine; Visit Provider Internal Medicine | DX: R05.9 Cough, unspecified (principal); I10 Essential (primary) hypertension; K74.3 Primary biliary cirrhosis | CPT/HCPCS: 99212 ==

== ENCOUNTER 2024-07-26 10:55 | Outpatient (AMB) | payer OTHER, SELFPAY ==
[2024-07-26 11:08] VITALS: BP 142/74; PULSE 76; RESP 18; O2SAT 95; BMI 30.5
--- NOTE | 2024-07-26 11:08 | MHC.PC.OV ---
Vital Signs 07/26/24 11:08 07/26/24 11:47 Height 5 ft 3 in Weight 172 lb BMI 30.5 BP 142/74 H 130/70 Blood Pressure Location Lt brachial Rt brachial Position Sitting Sitting Respiration 18 Pulse 76 Pulse Source Pulse Oximeter Pulse Oximetry (%) 95 Oxygen Delivery Method Room Air Intake Visit Reasons: 3 week follow up Intake Note: Pt is here today for 3 weeks follow up. Allergies clonidine [CLONIDINE] Allergy (Unknown, Verified 07/26/24 11:09) UNKNOWN naproxen [NAPROXEN] Allergy (Unknown, Verified 07/26/24 11:09) UNKNOWN penicillin V Allergy (Unknown, Verified 07/26/24 11:09) Itching Penicillins [PENICILLINS] Allergy (Unknown, Verified 07/26/24 11:09) itching Sulfa (Sulfonamide Antibiotics) [SULFA (SULFONAMIDE ANTIBIOTICS)] Allergy (Unknown, Verified 07/26/24 11:09) n/a nifedipine Adverse Reaction (Intermediate, Verified 07/26/24 11:09) leg swelling triamterene Adverse Reaction (Intermediate, Verified 07/26/24 11:09) Fainting umeclidinium [From Anoro Ellipta] Adverse Reaction (Intermediate, Verified 07/26/24 11:09) Cough vilanterol [From Anoro Ellipta] Adverse Reaction (Intermediate, Verified 07/26/24 11:09) Cough lisinopril [LISINOPRIL] Adverse Reaction (Unknown, Verified 07/26/24 11:09) Cough Medication List - Last Reconciled 07/26/24 by Leah Nazario MD amlodipine 5 mg PO DAILY aspirin 81 mg PO DAILY aovpinlsjr-eqkdhqtb-luahhpkotm 160-9-4.8 mcg/actuation (Breztri Aerosphere) 2 inhalations inhalation BID cetirizine 10 mg PO BEDTIME colchicine 0.6 mg PO BID compr.stocking,thigh,reg,x-lrg 15-25 mmHg econazole nitrate 1% 1 appl topical DAILY estradiol 0.01%(0.1mg/gram) grams vaginal fluticasone propionate 50 mcg/actuation 1 spray intranasal DAILY hydrochlorothiazide 25 mg PO DAILY hydrocortisone 2.5% 1 appl TN BID-QID PRN levothyroxine 50 mcg PO DAILY lidocaine 5% 1 ea topical .QD olmesartan 40 mg PO DAILY omeprazole 20 mg PO DAILY pravastatin 20 mg PO DAILY triamcinolone acetonide 0.025% appl topical BID triamcinolone acetonide 0.1% 1 appl dental BID ursodiol 1,000 mg PO DAILY Tobacco use date assessed: 07/26/24 Dental Screening Dental Screen Date: 07/07/24 HPI 3 week follow up HPI Details Pt presents for HTN, HYPERLIPIDEMIA COPD STABLE ON CURRENT MEDICATIONS. Patient could not tolerate amlodipine 5 mg. She developed fatigue and lightheadedness. Patient has been monitoring her blood pressure at home with the readings of 120/65. PENDING SALE TO [facility] Medical History Abnormal mammogram of left breast Pain of right thumb Edema Abnormal mammogram Primary biliary cirrhosis Lumbar spinal stenosis Osteoarthritis of left hip Vitamin D deficiency Gallbladder polyp Microscopic hematuria Multinodular goiter HTN (hypertension) Surgical History H/O colonoscopy No pertinent past surgical history Family History Father No problems noted. Mother No problems noted. Social History Housing: House Alcohol intake: never Patient Tobacco Use Status: Never used Tobacco e-Cigarette/Vaping Use: Never Used Second Hand Smoke Exposure: No service: No Current occupational status: retired Current occupation: rt hand Current occupational exposures/hazards: No Cognitive needs: No Hearing needs: No Vision needs: Yes Questionnaire Thrive Questionnaire Date Thrive assessed: 11/30/23 MISTY-7 AMB Questionnaire MISTY-7 Date MISTY - 7 assessed: 04/21/24 Source: Developed by Drs. Jaime Alexandre, Shannan Farah, Francisco Garcia and colleagues, with an educational laura from [employer]. Review of Systems Const All systems reviewed & are unremarkable except as noted in HPI and below Eyes Reports no additional complaints ENT Reports no additional complaints Card Reports no additional complaints Resp Reports no additional complaints GI Reports no additional complaints Reports no additional complaints Physical exam (Primary Care) Vital Signs: Last Vital Signs Pulse 76 07/26/24 11:08 Resp 18 07/26/24 11:08 BP 142/74 H 07/26/24 11:08 Pulse Ox 95 07/26/24 11:08 Oxygen Delivery Method Room Air 07/26/24 11:08 BMI result Body Mass Index 30.5 Tobacco/Smoking Status: Tobacco use Status Tobacco use date assessed 07/26/24 07/26/24 11:09 Patient Tobacco Use Status Never used Tobacco 07/26/24 11:09 e-Cigarette/Vaping Use Never Used 07/26/24 11:09 Thrive Assessment: Date of Thrive Assessment Date Thrive assessed 11/30/23 07/26/24 11:09 Const General: no acute distress HENMT Head: Yes normal to inspection Ears: hearing grossly normal bilaterally Neck Neck: Yes no lymphadenopathy and Yes supple Resp Effort & Inspection: normal respiratory effort Auscultation: diminished lung sounds Cardio Rhythm: regular rhythm Heart sounds: S1 normal heart sound present and S2 normal heart sound present GI Inspection: Yes normal to inspection Palpation (GI): Soft to palpation Percussion: Yes normal to percussion Auscultation: normal bowel sounds Coding Level of Care Code Est Pt Level 4 (17971) Diagnoses Hypothyroid E03.9 Abdominal aortic atherosclerosis I70.0 HTN (hypertension) I10 Primary biliary cirrhosis K74.3 COPD (chronic obstructive pulmonary disease) J44.9 Assessment & Plan Assessment & Plan (1) Hypothyroid: Code(s): E03.9 - Hypothyroidism, unspecified Category: Medical Plan: Continue levothyroxine (2) Abdominal aortic atherosclerosis: Comment: on statin Code(s): I70.0 - Atherosclerosis of aorta Category: Medical Plan: Continue statin (3) HTN (hypertension): Comment: Patient could not tolerate 5 mg of amlodipine Code(s): I10 - Essential (primary) hypertension Category: Medical Plan: Continue olmesartan hydrochlorothiazide at patient was advised to try half a tablet of 5 mg of amlodipine. She is living for Ethan next week and will follow-up in 4 months (4) Primary biliary cirrhosis: Comment: f/u Code(s): K74.3 - Primary biliary cirrhosis Category: Medical Plan: Continue current medications established with GI (5) COPD (chronic obstructive pulmonary disease): Comment: Established with pulmonology and Allergy Code(s): J44.9 - Chronic obstructive pulmonary disease, unspecified Category: Medical Plan: Continue Breztri , and Flonase nasal spray established with pulmonology and Allergy Medications: Refilled hydrochlorothiazide 25 mg PO DAILY 90 tabs 3RF olmesartan 40 mg PO DAILY 90 tabs 3RF
[2024-07-26 11:47] VITALS: BP 130/70
--- OUTSIDE RECORDS SUMMARY | 2024-07-26 13:19 | XMS_ITS | Clinical Summary ---
Author Organization [facility] Address [address] [place] [address] Phone Care Team Providers Care Film Editor Supervisor Name Role Phone Leah Nazario MD Primary Care Provider [phone] Allergies Active Allergy Reactions Criticality Noted Date Comments Clonidine Unknown 06/28/2009 Hydrochlorothiazide Unknown 01/29/2024 Lisinopril Unknown 06/28/2009 Naproxen Unknown 06/28/2009 Penicillins Rash 06/28/2009 Sulfa (Sulfonamide Antibiotics) 12/13 Medications estradioL (ESTRACE) 0.01 % (0.1 mg/gram) vaginal cream Insert 1 g into the vagina at bedtime. 08/14/2016 Active hydroCHLOROthiaz dannie (HYDRODIURIL) 25 mg tablet Take 1 tablet (25 mg total) by mouth 1 (one) time each day. 11/30/2023 Active olmesartan (BENICAR) 40 mg tablet Take 1 tablet (40 mg total) by mouth 1 (one) time each day. 11/30/2023 Active pravastatin (PRAVACHOL) 20 mg tablet Take 1 tablet (20 mg total) by mouth 1 (one) time each day. Active ursodioL (ACTIGALL) 250 mg tablet Take 1 tablet (250 mg total) by mouth 3 (three) times a day. 08/14/2016 Active colchicine (COLCRYS) 0.6 mg tablet Take 1 tablet (0.6 mg total) by mouth 1 (one) time each day. Active montelukast (SINGULAIR) 10 mg tablet Take 1 tablet (10 mg total) by mouth 1 (one) time each day. 05/25/2024 Active Breztri Aerosphere 160-9-4.8 mcg/actuation HFA aerosol inhaler inhaler Inhale 2 puffs by mouth 2 (two) times a day. 06/20/2024 Active levothyroxine (SYNTHROID, LEVOTHROID) 50 mcg tablet [...] her inhalers which I directed to her blow down helper. 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 Overview (01/29/2024): S/p QUIROGA Restless legs syndrome 06/08/2012 Dermatophytosis of nail 02/03/2012 Encounters Date Type Department Care Team Description 06/21/2024 10:00 AM EDT Office Visit Pulmonolgy - [place] [address] [phone] Charmaine Clark MD COPD with asthma (CMS/[facility] V24, CMS/[facility] V28) (Primary Dx); MITRA (obstructive sleep apnea); Lung nodule; Chronic cough 05/16/2024 Telephone Pulmonolgy [facility] [address] [phone] Rekha Goodman MA DME request 05/10/2024 Telephone Pulmonolgy [facility] [address] [phone] Charmaine Clark MD dme request from Last [...] uncomplicated COPD (chronic obstructive pu lmonary disease) (CMS/HCC V24, CMS/HCC V28) 01/11/2024 DX:COPD (chronic o bstructive pulmonary disease) ([facility]) Essential (primary) hypertension 01/11/2024 DX:Essential (primary) hypertension Gallstones 01/11/2024 DX:Gallstones Hypothyroidism 01/11/2024 DX:Hypothyroidis m Multiple thyroid nodules 01/11/2024 DX:Mult iple thyroid nodules Primary biliary cirrhosis (C GA/HCC V24, CMS/HCC V28) 01/11/2024 DX:Primary biliary cirrhosis (HCC) Family History [...] Upcoming Encounters Date Type Department Care Team ([facility] st Contact Info) Description 01/31/2025 9:45 AM EDT Office Visit Pulmonolgy - [place] 175 [facility] [address] [place] [phone] Charmaine Clark MD [address] [place] [phone] Health Maintenance Due Date Last Done Comments DTaP,Tdap,and Td Vaccines (1 - Tdap) 1959 Pneumococcal Vaccine: 50+ Ye ars (1 of 2 - PCV) 1959 Zoster Vaccines (1 of 2) 1990 RSV Immunization Adult Patie nts (1 - 1-dose 75+ series) 2015 Cholesterol Screening (Lipid Panel) 03/15/2022 Depression Screening 03/15/2022 Falls Risk Assessment 03/15/2022 Medicare Annual Wellness Visit 03/15/2022 Osteoporosis Screening (Bone Density Screening) 03/15/2022 Social Influencers of Health Screening 03/15/2022 Hypertension/CHF/CAD Annual BMP Blood Test 03/29/2022 COVID-19 Vaccine ( - 2023-2 5 season) 2023 Influenza Vaccine (Season Ended) 2024 HIB Vaccines Aged Out No longer eligi [...] age to complete this topic Meningococcal B Vaccine Aged Out No l onger eligible based on patient's age to complete this topic RSV Immunization Patients Un rock 20 months Aged Out No longer eligible b ased on patient's age to complete this topic Varicella Vaccines Aged Out No longer eligible based on patient's age to complete this topic Procedures Procedure Name Priority Date/Time Associated Diagnosis Comments VT SLEEP STUDY ATTENDED 05/04/2024 from Last 3 Months Results * General sleep study (05/04/2024) Provider [facility] ORDERABLES Final Result from Last 3 Months Insurance [facility] Member Subscriber Plan / Payer (Ef fective 2018-Present) Name:Jordana Browne Relation to Subscriber:Self Name:Jordana Browne Payer ID:[id number] Group ID:[id number] Type:Not on file Address: [address] [place] [phone] Care Teams Film Editor Supervisor Relationship Specialty Start Date End Date Leah Nazario MD PCP - General Internal Medicine 06/21/24
--- OUTSIDE RECORDS SUMMARY | 2024-07-26 13:19 | XMS_ITS | Data Portability ---
Author Organization [place] - [facility], Allergy Address [address] [place] [phone] Assessment Encounter Date Assessment Date Assessment LastModified by Organization Details LastModified Time 12/17/2023 12/17/2023 Audiometric testing is stable compared with previous. Recommend she follow-up with her contracts administrator for adjustment of her hearing aids. Her daughter describes an upcoming appointment with a new contracts administrator. Her secondary concern of chronic cough with [...] audio gram No observ ation record ed. [email or web address] Not Available 09/2023 08:35:58 Result Notes None recorded. Problems Name Problem SNOMED Code Status Onset Date Resolution Date Notes Provider Name and Address Organization Details Recorded Time Sensorineu ral hearing loss of bilateral ears 783314967 Active 2021 Sensorineu ral hearing loss, bilateral; Note: Date Diagnosed: 09/27/2021 10:27 AM (H90.3) VALERIE PHAM MD [address] [place] [address], [phone], [facility] - [facility] 12:27:39 Chronic cough 06631849 Active 2023 VALERIE PHAM MD [address] [place] [address], [place], [phone], [facility] [place] 14:17:53 Biliary cirrhosis 0316026 Active 2023 VALERIE PHAM MD [address] [place] [address], [phone], [facility] - [facility] [place] 14:18:44 Problem Notes None recorded. Procedures Surgical History Date Name Laterality Status Provider Name and Address Organization Details Recorded Time 12/17/19 24 FOL_DP completed VALERIE PHAM MD [address] [place] [address], [phone], [facility] - [facility] [place] 12/17/2023 14:17:43 12/17/19 24 Air only Audio (80679) completed Blanca Roberts [facility] [place] 12/17/2023 13:16:39 12/17/19 24 Tympanometry (59481) completed Blanca Roberts [place] [facility] 12/17/2023 13:16:46 Imaging Results Imaging Date Name Status LastModified by [facility] Details LastModified Time 09/27/2021 imaging/diagno stic result completed Information not available 12/01/2023 14:07:32 09/27/2021 imaging/diagno stic result completed Information not available 12/01/2023 14:07:33 09/27/2021 imaging/diagno stic result completed Information not available 12/01/2023 14:07:34 09/27/2021 audiogram completed Information not available 12/01/2023 14:07:38 12/18/2023 audiogram completed Information n ot available 12/18/2023 08:35:58 Procedure Notes None recorded. Medical Equipment None Reported. Allergies Allergen ID Allergen Name Allergen Category Reaction Reaction Severity Criticality Documentation Date Start Date Code Code System Note Provider Name and Address Organization Details Recorded Time 301041 clonidine medicatio n other Not available Not available 08/25/2023 2599 RxNorm React ion: Unkno wn; Not Available [facility] 4 01:11:22 103519 naproxen medicatio n other Not available Not available 08/25/2023 7258 RxNorm React ion: Unkno wn; Not Available [facility] 4 01:11:23 048251 Substance with sulfonami de structure and antibacte rial mechanism of action (substanc e) medicatio n other Not available Not available 08/25/2023 30125 8003 SNOMED React ion: Unkno wn; Not Available [facility] 4 01:11:24 423296 lisinopri l medicatio n other Not available Not available 08/25/2023 37154 RxNorm React ion: Unkno wn; Not Available [facility] 4 01:11:25 104381 Penicilli n Not available other Not available Not available 08/25/2023 73703 RxNorm React ion: Unkno wn; Not Available [facility] 4 01:11:27 Medications Name Sig Start Date Stop Date Status Note LastModified by Organization Details LastModified Time nifedipine ER 30 mg tablet,ext ended release 24 hr active Medicatio n ID: [id number] Br and Name: nifedipin e Send Method: [...] mg/gram) vaginal cream active Medicatio n ID: [id number] Br and Name: estradiol Send Method: E-Prescri [...] Updated DateTime 12/17/2023 162.56 cm 28.3 kg/m2 96629.74 g Odilia Abraham [place] - [facility] 12/17/2023 13:48:27 Social History None recorded. Functional Status None recorded. Mental Status None recorded. Family History Nothing Reported. Medical History No medical history recorded. Gynecological HistoryNo gynecological history recorded. Obstetrics History GPAL:G 0 P 0 0 0 0 Past Encounters Encounter ID Performer Location Encounter Start Date Encounter Closed Date Diagnosis/Indication Diagnosis SNOMED-CT Code Diagnosis ICD10 Code Diagnosis Note [id number] VALERIE PHAM MD [facility] [address] [address] 12/17/2023 12:47:59 12/17/2023 14:23:03 Sensorineural hearing loss of bilateral ears 556867816 H90.3 Audiologic al evaluation results: Right ear: [...] not maintain a hermetic seal}} Chronic cough 77279027 R 05.3 Biliary cirrhosis 051173 6 K74.5 Health Concerns Section Related Observation LastModified by Organization Detai ls LastModified Time None Recorded Concern Status LastModified by Organization Details LastModified Time None Recorded Advance Directives Directive None Recorded Payers Encounter Date Sequence Insurance Name Policy Number Policy Alonso Covered Member ID Alonso Member ID Guarantor Name 12/17/2023 1 [facility] [id number] [place] Hiero Notes Date Note Type Note Provider Name and Address Organization Details Recorded Time 12/17/2023 text/html Lebanese - daughterhearing loss 09/27/2021 audio right ear normal sloping to moderate sensorineuralLeft ear normal sloping to moderate-severe sensorineural hearing aid evaluation recommended in urrent hearing aids 2021 in [place] - but they closed second concern of a dry coughonset 2019xray was clearcough medication liquid from PCP was not helpful+nocturnal coughOSA - on CPAPworks with Dr Forte for liver primary biliary cirrhosis VALERIE PHAM MD [address] [place] [address], [phone], [facility] - [facility] 12/17/2023 14:21:09 OBGyn Episode No OBEpisode recorded.
== END 2024-07-26 11:52 | disposition home or self-care (01) ==
LOC: HO.HMCC 10:55
PROVIDERS: PCP Internal Medicine; Visit Provider Internal Medicine
DX: E03.9 Hypothyroidism, unspecified (principal); I70.0 Atherosclerosis of aorta; K74.3 Primary biliary cirrhosis; J44.9 Chronic obstructive pulmonary disease, unspecified; I10 Essential (primary) hypertension

== ENCOUNTER → 2024-07-26 10:55 | Outpatient (BNVA) | payer OTHER, SELFPAY | PROVIDERS: PCP Internal Medicine; Visit Provider Internal Medicine | DX: I10 Essential (primary) hypertension (principal); E78.5 Hyperlipidemia, unspecified; J44.9 Chronic obstructive pulmonary disease, unspecified; E03.9 Hypothyroidism, unspecified; I70.0 Atherosclerosis of aorta; K74.3 Primary biliary cirrhosis; Z79.899 Other long term (current) drug therapy | CPT/HCPCS: 99212 ==

== ENCOUNTER 2024-08-03 10:28 | Outpatient (AMB) | payer OTHER, SELFPAY ==
--- NOTE | 2024-08-03 10:43 | AM.OFFVISNUR ---
Intake Visit Reasons: Pneumonia Vaccine, per LEYLA Intake Note: Pt arrived for pneumonia vaccine. Convention Planner Required: No Allergies clonidine [CLONIDINE] Allergy (Unknown, Verified 08/03/24 10:44) UNKNOWN naproxen [NAPROXEN] Allergy (Unknown, Verified 08/03/24 10:44) UNKNOWN penicillin V Allergy (Unknown, Verified 08/03/24 10:44) Itching Penicillins [PENICILLINS] Allergy (Unknown, Verified 08/03/24 10:44) itching Sulfa (Sulfonamide Antibiotics) [SULFA (SULFONAMIDE ANTIBIOTICS)] Allergy (Unknown, Verified 08/03/24 10:44) n/a nifedipine Adverse Reaction (Intermediate, Verified 08/03/24 10:44) leg swelling triamterene Adverse Reaction (Intermediate, Verified 08/03/24 10:44) Fainting umeclidinium [From Anoro Ellipta] Adverse Reaction (Intermediate, Verified 08/03/24 10:44) Cough vilanterol [From Anoro Ellipta] Adverse Reaction (Intermediate, Verified 08/03/24 10:44) Cough lisinopril [LISINOPRIL] Adverse Reaction (Unknown, Verified 08/03/24 10:44) Cough Medication List - Last Reconciled 08/03/24 by Ana Martinez, RN amlodipine 5 mg PO DAILY aspirin 81 mg PO DAILY sljwvcyyvh-rcitudil-gfcyedleys 160-9-4.8 mcg/actuation (Breztri Aerosphere) 2 inhalations inhalation BID cetirizine 10 mg PO BEDTIME colchicine 0.6 mg PO BID compr.stocking,thigh,reg,x-lrg 15-25 mmHg econazole nitrate 1% 1 appl topical DAILY estradiol 0.01%(0.1mg/gram) grams vaginal fluticasone propionate 50 mcg/actuation 1 spray intranasal DAILY hydrochlorothiazide 25 mg PO DAILY hydrocortisone 2.5% 1 appl VT BID-QID PRN levothyroxine 50 mcg PO DAILY lidocaine 5% 1 ea topical .QD olmesartan 40 mg PO DAILY omeprazole 20 mg PO DAILY pravastatin 20 mg PO DAILY triamcinolone acetonide 0.025% appl topical BID triamcinolone acetonide 0.1% 1 appl dental BID ursodiol 1,000 mg PO DAILY Is last menstrual period known: No Post menopausal: Yes Patient : No Do you need a note to return to daycare/school/sports/work: No Immunizations pneumoc 20-angie conj-dip cr(PF) 0.5 mL IM syringe Performing Provider: Leah Nazario MD Performing Location: [facility] Adult [facility] Administered by: Ana Martinez RN on 08/03/24 10:45 Dose Route Admin Location Dispensed Lot Number Expiration Date NDC Defect Repairer Glassware 0.5 mL IM Left Deltoid 0.5 mL [id number] 05/14/25 [employer] Brailler VIS Given Date VIS Provided VIS Publication Date 08/03/24 Single Vaccine 22 Eligibility Eligibility Date Funding Source Not [facility] Eligible 08/03/24 Private Assessment & Plan Assessment & Plan Orders: Orders Pneumococcal 20 Immunization Today Z23 - Encounter for immunization Medications: New pneumoc 20-angie conj-dip cr(PF) 0.5 mL IM ONCE 0.5 mL 0RF Z23 - Encounter for immunization Coding
--- OUTSIDE RECORDS SUMMARY | 2024-08-03 12:19 | XMS_ITS | Data Portability ---
Author Organization [place] - [facility], Allergy Address [address] [place] [phone] Assessment Encounter Date Assessment Date Assessment LastModified by Organization Details LastModified Time 12/17/2023 12/17/2023 Audiometric testing is stable compared with previous. Recommend she follow-up with her cardiovascular surgeon for adjustment of her hearing aids. Her daughter describes an upcoming appointment with a new cardiovascular surgeon. Her secondary concern of chronic cough with [...] audio gram No observ ation record ed. Not Available 09/2023 08:35:58 Result Notes None recorded. Problems Name Problem SNOMED Code Status Onset Date Resolution Date Notes Provider Name and Address Organization Details Recorded Time Sensorineu ral hearing loss of bilateral ears 481869471 Active 2021 Sensorineu ral hearing loss, bilateral; Note: Date Diagnosed: 09/27/2021 10:27 AM (H90.3) VALERIE PHAM MD [address] [place] [address], [phone], [facility] - [facility] 12:27:39 Chronic cough 43783487 Active 2023 VALERIE PHAM MD [address] [place] [address], [place], [phone], [facility] - [facility] [place] 14:17:53 Biliary cirrhosis 9880605 Active 2023 VALERIE PHAM MD [address] [place] [address], [phone], [facility] - [facility] [place] 14:18:44 Problem Notes None recorded. Procedures Surgical History Date Name Laterality Status Provider Name and Address Organization Details Recorded Time 12/17/19 24 FOL_DP completed VALERIE PHAM MD [address] [place] [address], [phone], [facility] - [facility] [place] 12/17/2023 14:17:43 12/17/19 24 Air only Audio (89006) completed Blanca Roberts [facility] [place] 12/17/2023 13:16:39 12/17/19 24 Tympanometry (84545) completed Blanca Roberts MA [facility] 12/17/2023 13:16:46 Imaging Results Imaging Date Name Status LastModified by Organiz [facility] Details LastModified Time 09/27/2021 imaging/diagno stic result completed Information not available 12/01/2023 14:07:32 09/27/2021 imaging/diagno stic result completed Information not available 12/01/2023 14:07:33 09/27/2021 imaging/diagno stic result completed Information not available 12/01/2023 14:07:34 09/27/2021 audiogram completed Information not available 12/01/2023 14:07:38 12/18/2023 audiogram completed [email or web address] Information n ot available 12/18/2023 08:35:58 Procedure Notes None recorded. Medical Equipment None Reported. Allergies Allergen ID Allergen Name Allergen Category Reaction Reaction Severity Criticality Documentation Date Start Date Code Code System Note Provider Name and Address Organization Details Recorded Time 537854 clonidine medicatio n other Not available Not available 08/25/2023 2599 RxNorm React ion: Unkno wn; Not Available [facility] 4 01:11:22 232583 naproxen medicatio n other Not available Not available 08/25/2023 7258 RxNorm React ion: Unkno wn; Not Available [facility] 4 01:11:23 828547 Substance with sulfonami de structure and antibacte rial mechanism of action (substanc e) medicatio n other Not available Not available 08/25/2023 80714 8003 SNOMED React ion: Unkno wn; Not Available [facility] 4 01:11:24 440198 lisinopri l medicatio n other Not available Not available 08/25/2023 64457 RxNorm React ion: Unkno wn; Not Available [facility] 4 01:11:25 044663 Penicilli n Not available other Not available Not available 08/25/2023 44961 RxNorm React ion: Unkno wn; Not Available [facility] 4 01:11:27 Medications Name Sig Start Date Stop Date Status Note LastModified by Organization Details LastModified Time nifedipine ER 30 mg tablet,ext ended release 24 hr active Medicatio n ID: [id number] Br and Name: nifedipin e Send Method: [...] mg/gram) vaginal cream active Medicatio n ID: [id number] Br and Name: estradiol Send Method: E-Prescri [...] Updated DateTime 12/17/2023 162.56 cm 28.3 kg/m2 69873.74 g Odilia Abraham [place] - [facility] 12/17/2023 13:48:27 Social History None recorded. Functional Status None recorded. Mental Status None recorded. Family History Nothing Reported. Medical History No medical history recorded. Gynecological HistoryNo gynecological history recorded. Obstetrics History GPAL:G 0 P 0 0 0 0 Past Encounters Encounter ID Performer Location Encounter Start Date Encounter Closed Date Diagnosis/Indication Diagnosis SNOMED-CT Code Diagnosis ICD10 Code Diagnosis Note [id number] VALERIE PHAM MD [facility] [address] [address] 12/17/2023 12:47:59 12/17/2023 14:23:03 Sensorineural hearing loss of bilateral ears 078242699 H90.3 Audiologic al evaluation results: Right ear: [...] not maintain a hermetic seal}} Chronic cough 71712704 R 05.3 Biliary cirrhosis 750827 6 K74.5 Health Concerns Section Related Observation LastModified by Organization Detai ls LastModified Time None Recorded Concern Status LastModified by Organization Details LastModified Time None Recorded Advance Directives Directive None Recorded Payers Encounter Date Sequence Insurance Name Policy Number Policy Alonso Covered Member ID Alonso Member ID Guarantor Name 12/17/2023 1 [facility] [id number] [place] Hiero Notes Date Note Type Note Provider Name and Address Organization Details Recorded Time 12/17/2023 text/html [place] - daughterhearing loss 09/27/2021 audio right ear normal sloping to moderate sensorineuralLeft ear normal sloping to moderate-severe sensorineural hearing aid evaluation recommended in urrent hearing aids 2021 in [place] - but they closed second concern of a dry coughonset 2019xray was clearcough medication liquid from PCP was not helpful+nocturnal coughOSA - on CPAPworks with Dr Forte for liver primary biliary cirrhosis VALERIE PHAM MD [address] [place] [address], [phone], [facility] - [facility] 12/17/2023 14:21:09 OBGyn Episode No OBEpisode recorded.
--- OUTSIDE RECORDS SUMMARY | 2024-08-03 12:19 | XMS_ITS | Clinical Summary ---
Author Organization 175 [facility] Address [address] [place] [address] Phone Care Team Providers Care Business Objects Analyst Name Role Phone Leah Nazario MD Primary Care Provider [phone] Allergies Active Allergy Reactions Criticality Noted Date [...] her inhalers which I directed to her showroom executive director. 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[facility] V24, CMS/[facility] V28) (Primary Dx); MITRA (obstructive sleep apnea); Lung nodule; Chronic cough 05/16/2024 Telephone Pulmonolgy [facility] [address] [phone] Rekha Mas MA DME request 05/10/2024 Telephone Pulmonolgy [facility] [address] [phone] Charmaine Clark MD dme request from Last [...] 01/11/2024 DX:COPD (chronic o bstructive pulmonary disease) (HCC) Essential (primary) hypertension 01/11/2024 DX:Essential (primary) hypertension Gallstones 01/11/2024 DX:Gallstones Hypothyroidism 01/11/2024 DX:Hypothyroidis m Multiple thyroid nodules 01/11/2024 DX:Mult iple thyroid nodules Primary biliary cirrhosis (C MS/HCC V24, CMS/HCC V28) 01/11/2024 DX:Primary biliary cirrhosis [...] Upcoming Encounters Date Type Department Care Team ([facility] st Contact Info) Description 01/31/2025 9:45 AM EDT Office Visit Pulmonolgy - [place] [address] [facility] [address] [place] [phone] Charmaine Clark MD [address] [place] [phone] Health Maintenance Due Date Last Done Comments [...] Annual BMP Blood Test 03/29/2022 COVID-19 Vaccine (2023-2 5 season) 2023 Influenza Vaccine (Season Ended) [...] on patient's age to complete this topic Insurance [employer] MEDICARE Member Subscriber Plan / Payer (Ef fective 2018-Present) Name:Mallika Brownenna Relation to Subscriber:Self Name:Mallika Brownenna Payer ID:[id number] Group ID:[id number] Type:Not on file Address: [place] [address] [address] [phone] Care Teams Business Objects Analyst Relationship Specialty Start Date End Date Leah Nazario MD PCP - General Internal Medicine 06/21/24
== END 2024-08-03 11:00 | disposition home or self-care (01) ==
LOC: HO.HMCC 10:28
PROVIDERS: PCP Internal Medicine; Visit Provider Internal Medicine
DX: Z23 Encounter for immunization (principal)

== ENCOUNTER → 2024-08-03 10:28 | Outpatient (BNVA) | payer OTHER, SELFPAY | PROVIDERS: PCP Internal Medicine; Visit Provider Internal Medicine | DX: Z23 Encounter for immunization (principal) | CPT/HCPCS: 90471; 90677 ==

== ENCOUNTER 2024-12-20 08:57 | Outpatient (REF) | payer OTHER, SELFPAY ==
[2024-12-20 10:06] LABS: MANUAL DIFF FLAG NO
[2024-12-20 10:11] LABS: Hematocrit 38.9 % (37.0-47.0); Hemoglobin 13.0 g/dl (12.0-16.0); Imm Gran Abs Auto 0.01 X10*3/uL (0.00-0.03); Imm Gran Pct Auto 0.2 % (0.0-0.4); Lymphocytes Absolute Auto 1.4 X10*3/uL (1.2-4.9); Mean Corpuscular HGB Conc 33.4 g/dl (31.0-35.0); Mean Corpuscular Hemoglobin 28.1 pg (27.0-33.0); Mean Corpuscular Volume 84.2 fL (80.0-98.0); NRBC Abs Auto 0.000 X10*3/uL (0.0-0.012); NRBC Pct Auto 0.0 /100WBC (0.0-0.2); Platelet Count 219 X10*3/uL (160-400); Red Blood Count 4.62 X10*6/uL (4.20-5.50); White Blood Count 4.8 X10*3/uL (4.8-10.8)
--- OUTSIDE RECORDS SUMMARY | 2024-12-20 10:11 | XMS_ITS | Clinical Summary ---
Author Organization [facility] Address [address] [place] [address] Phone Care Team Providers Care Fan Runner Name Role Phone Leah Nazario MD Primary Care Provider [phone] Allergies Active Allergy Reactions Criticality Noted Date Comments Clonidine Unknown 06/28/2009 Hydrochlorothiazide Unknown 01/29/2024 Lisinopril Unknown 06/28/2009 Naproxen Unknown 06/28/2009 Penicillins Rash 06/28/2009 Sulfa (Sulfonamide Antibiotics) 12/13 Medications estradioL (ESTRACE) 0.01 % (0.1 mg/gram) vaginal cream Insert 1 g into the vagina at bedtime. 7 Active hydroCHLOROthia zide (HYDRODIURIL) 25 mg tablet [...] each day. Active ursodioL (ACTIGALL) 250 mg tabletIndicatio ns:Primary biliary cirrhosis (CMS/HCC V24, CMS/HCC V28) TAKE ONE TABLET BY MOUTH FOUR TIMES A DAY 360 tablet 5 Active colchicine (COLCRYS) 0.6 mg tabletIndicatio ns:Primary biliary cirrhosis (CMS/HCC V24, CMS/HCC V28) TAKE ONE TABLET BY MOUTH TWICE A DAY 130 tablet 5 Active ursodioL (ACTIGALL) 250 mg tablet Take 1 tablet (250 mg total) by mouth 3 (three) times a day. 7 12/01/19 25 Discontinued colchicine (COLCRYS) 0.6 mg tabletIndicatio ns:Primary biliary cirrhosis (CMS/HCC V24, CMS/HCC V28) TAKE ONE TABLET BY MOUTH TWICE A DAY 130 tablet 5 12/03/19 25 Discontinued Active Problems Problem Noted Date Diagnosed Date [...] her inhalers which I directed to her slot shift supervisor. 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 Overview (01/29/2024): S/p QUIROGA Restless legs syndrome 06/08/2012 Dermatophytosis of nail 02/03/2012 Encounters Date Type Department Care Team Description 12/13/2024 7:01 AM EDT - 12/13/2024 11:59 PM EDT Hospital Encounter [facility] Ultrasound [address] [place] [phone] Primary biliary cirrhosis ([facility] V24, [facility] V28) Discharge Disposition: Home or Self Care 10/03/2024 Telephone Gastroenterology - [address] [facility] [address] [place] [phone] Richi Forte MD from Last 3 Months Surgical History Surgery [...] uncomplicated COPD (chronic obstructive pu lmonary disease) ([facility] V24, [facility] V28) 01/11/2024 DX:COPD (chronic o bstructive pulmonary [...] Information Value Date Recorded Sex Assigned at Female 12/01/2024 10:26 PM EDT Legal Sex Female 7:39 PM EST Gender Identity Not on file Sexual Orientation Not on file Obstetrics History Last Filed Vital Signs Vital Sign Reading Time Taken Comments Blood Pressure 118/72 06/21/2024 10:07 AM EDT Pulse 65 06/21/2024 10:07 AM EDT Temperature 35.9 C (96.7 F) 06/21/2024 10:07 AM EDT Respiratory Rate 16 06/21/2024 10:07 AM EDT Oxygen Saturation 97% 06/21/2024 10:07 AM EDT Inhaled Oxygen Concentration - - Weight 79.1 kg (174 lb 6.4 oz) 06/21/2024 10:07 AM EDT Height 152.4 cm (5') 06/21/2024 10:07 AM EDT Body Mass Index 34.06 06/21/2024 10:07 AM EDT Plan of Treatment Upcoming Encounters Date Type Department Care Team (Late st Contact Info) Description 12/22/2024 8:00 AM EDT Appointment [facility] [address] [place] [phone] 12/22/2024 10:00 AM EDT Office Visit Gastroenterology - [address] [facility] [address] [place] [phone] Richi Forte MD [address] [place] [phone] 12/28/2024 11:00 AM EDT Appointment [facility] CT Scan [address] [place] [phone] 01/31/2025 2:30 PM EDT Office Visit Pulmonolgy - [place] [address] [phone] Charmaine Clark MD [address] [address] Health Maintenance Due Date Last Done Comments Hepatitis A Vaccines (1 of 2 - Risk 2-dose series) 1959 Zoster Vaccines (1 of 2) 1990 Hepatitis B Vaccines (1 of 3 - Risk 3-dose series) 2000 RSV Immunization Adult Patients (1 - 1-dose 75+ series) 2015 Cholesterol Screening (Lipid Panel) 03/15/2022 Falls Risk Assessment 03/15/2022 Medicare Annual Wellness Visit 03/15/2022 Osteoporosis Screening (Bone Density Screening) 03/15/2022 Social Influencers of Health Screening 03/15/2022 Depression Screening 04/13/2024 DTaP,Tdap,and Td Vaccines (2 - Td or Tdap) 12/08/2024 12/08/2014 COVID-19 Vaccine ( season) 2024 04/11/2021, 06/13/2020, 05/23/2020, Additional history exists Influenza Vaccine (#1) 2024 Hypertension/CHF/CAD Annual BMP Blood Test 12/13/2025 12/13/2024 Pneumococcal Vaccine: 50+ Years Completed 08/03/2024, 12/10/2009 HIB Vaccines Aged Out No longer eligi [...] to complete this topic RSV Immunization Patients Under 20 months Aged Out No longer eligible based on patient's age to complete this topic Varicella Vaccines Aged Out No longer eligible based on patient's age to complete this topic Procedures Procedure Name Priority Date/Time Associated Diagnosis Comments CBC WITH AUTO DIFFERENTIAL Routine 12/13/2024 8:07 AM EDT Primary biliary cirrhosis (CMS/HCC V24, CMS/HCC V28) CBC AND DIFFERENTIAL Routine 12/13/2024 8:07 AM EDT Primary biliary cirrhosis (CMS/HCC V24, CMS/HCC V28) BASIC METABOLIC PANEL Routine 12/13/2024 8:07 AM EDT Primary biliary cirrhosis (CMS/HCC V24, CMS/HCC V28) HEPATIC FUNCTION PANEL Routine 12/13/2024 8:07 AM EDT Primary biliary cirrhosis (CMS/HCC V24, CMS/HCC V28) ALPHA FETOPROTEIN TUMOR MARKER Routine 12/13/2024 8:07 AM EDT Primary biliary cirrhosis (CMS/HCC V24, CMS/HCC V28) EXTERNAL COLONOSCOPY REPORT Routine 10/06/2024 1:54 PM EDT from Last 3 Months Results * (ABNORMAL) CBC auto differential (12/13/2024 8:07 AM EDT) WBC 5.0 4.8 - 10.8 K/mcL LAB HEMETOLOGY METHOD 12/13/2024 9:56 AM EDT [facility] RBC 4.70 3.80 - 4.80 M/mcL LAB HEMETOLOGY METHOD 12/13/2024 9:56 AM EDT [facility] Hemoglobin 13.2 11.5 - 16.0 g/dL LAB HEMETOLOGY METHOD 12/13/2024 9:56 AM EDT [facility] Hematocrit 40.2 35.0 - 47.0 % LAB HEMETOLOGY METHOD 12/13/2024 9:56 AM [facility] MCV 86.1 79.0 - 98.0 FL LAB HEMETOLOGY METHOD 12/13/2024 9:56 AM [facility] MCH 28.3 27.0 - 32.0 pcg LAB HEMETOLOGY METHOD 12/13/2024 9:56 AM [facility] MCHC 32.8 32.0 - 37.0 g/dL LAB HEMETOLOGY METHOD 12/13/2024 9:56 AM [facility] RDW 14.4 11.0 - 15.0 % LAB HEMETOLOGY METHOD 12/13/2024 9:56 AM [facility] Platelets 226 130 - 400 K/mcL LAB HEMETOLOGY METHOD 12/13/2024 9:56 AM [facility] MPV 11.6(H) 7.0 - 11.0 FL LAB HEMETOLOGY METHOD 12/13/2024 9:56 AM [facility] NRBC 0.0 <1.0 % LAB HEMETOLOGY METHOD 12/13/2024 9:56 AM [facility] NRBC Absolute 0.00 <0.10 K/mcL LAB HEMETOLOGY METHOD 12/13/2024 9:56 AM [facility] Neutrophils Relative 57.1 % LAB HEMETOLOGY METHOD 12/13/2024 9:56 AM [facility] Lymphocytes Relative 26.0 % LAB HEMETOLOGY METHOD 12/13/2024 9:56 AM [facility] Monocytes Relative 10.3 % LAB HEMETOLOGY METHOD 12/13/2024 9:56 AM [facility] Eosinophils Relative 5.6 % LAB HEMETOLOGY METHOD 12/13/2024 9:56 AM [facility] Basophils Relative 0.6 % LAB HEMETOLOGY METHOD 12/13/2024 9:56 AM EDT [facility] Immature Granulocytes Relative 0.4 % LAB HEMETOLOGY METHOD 12/13/2024 9:56 AM EDT [facility] Neutrophils Absolute 2.87 1.50 - 7.00 K/mcL LAB HEMETOLOGY METHOD 12/13/2024 9:56 AM EDT [facility] Lymphocytes Absolute 1.31 1.00 - 5.00 K/mcL LAB HEMETOLOGY METHOD 12/13/2024 9:56 AM EDT [facility] Monocytes Absolute 0.52 0.20 - 1.00 K/mcL LAB HEMETOLOGY METHOD 12/13/2024 9:56 AM EDT [facility] Eosinophils Absolute 0.28 0.00 - 0.50 K/mcL LAB HEMETOLOGY METHOD 12/13/2024 9:56 AM EDT [facility] Basophils Absolute 0.03 0.00 - 0.20 K/mcL LAB HEMETOLOGY METHOD 12/13/2024 9:56 AM EDT [facility] Immature Granulocytes Absolute 0.02 0.00 - 0.03 K/mcL LAB HEMETOLOGY METHOD 12/13/2024 9:56 AM T [facility] Blood Venous blood specimen / Unknown Venipuncture / Unknown 12/13/2024 8:07 AM EDT 12/13/2024 9:44 AM EDT us Richi Forte MD LAB BLOOD ORDERABLES Final Re sult [facility] [address] [place] [address], * Alpha fetoprotein tumor marker (12/13/2024 8:07 AM EDT) AFP <2.5 0.0 - 8.0 ng/mL LAB CHEMISTRY METHOD 12/13/2024 2:37 PM EDT [facility] Blood Venous blood specimen / Unknown Venipuncture / Unknown 12/13/2024 8:07 AM EDT 12/13/2024 9:44 AM EDT [facility] - 12/13/2024 2:37 PM EDT The Siemens Advia Centaur Chemiluminescent Immunoassay is used. Results obtained with different assay methods or kits cannot be used interchangeably. Results cannot be interpreted as absolute evidence of the presence or absence of malignant disease. us Richi Forte MD LAB BLOOD ORDERABLES Final Re sult [facility] [address] [place] [address], [place] [phone] * Hepatic function panel (12/13/2024 8:07 AM EDT) Total Protein 7.0 6.0 - 8.0 g/dL LAB CHEMISTRY METHOD 12/13/2024 1:28 PM EDT [facility] Albumin 3.7 3.2 - 5.0 g/dL LAB CHEMISTRY METHOD 12/13/2024 1:28 PM [facility] Total Bilirubin 0.5 0.0 - 1.4 mg/dL LAB CHEMISTRY METHOD 12/13/2024 1:28 PM EDT [facility] Bilirubin, Direct 0.2 0.0 - 0.3 mg/dL LAB CHEMISTRY METHOD 12/13/2024 1:28 PM T [facility] Bilirubin, Indirect 0.3 0.0 - 1.1 mg/dL LAB CHEMISTRY METHOD 12/13/2024 1:28 PM [facility] ALT (SGPT) 43 10 - 60 unit/L LAB CHEMISTRY METHOD 12/[facility]24 [facility] AST (SGOT) 36 10 - 42 unit/L LAB CHEMISTRY METHOD 12/13/2024 1:28 PM [facility] Alkaline Phosphatase 78 42 - 121 unit/L LAB CHEMISTRY METHOD 12/13/2024 1:28 PM [facility] Blood Venous blood specimen / Unknown Venipuncture / Unknown 12/13/2024 8:07 AM EDT 12/13/2024 9:44 AM EDT us Richi Forte MD LAB BLOOD ORDERABLES Final Re sult [facility] [address] [place] [address], * Basic metabolic panel (12/13/2024 8:07 AM EDT) Sodium 135 133 - 145 mmol/L LAB CHEMISTRY METHOD 12/13/2024 1:28 PM [facility] Potassium 4.2 3.5 - 5.5 mmol/L LAB CHEMISTRY METHOD 12/13/2024 1:28 PM [facility] Chloride 102 96 - 110 mmol/L LAB CHEMISTRY METHOD 12/13/2024 1:28 PM [facility] CO2 30 21 - 32 mmol/L LAB CHEMISTRY METHOD 12/13/2024 1:28 PM [facility] Anion Gap 3 3 - 11 LAB CHEMISTRY METHOD 12/13/2024 1:28 PM [facility] Glucose 98 70 - 100 mg/dL LAB CHEMISTRY METHOD 12/13/2024 1:28 PM [facility] BUN 17 5 - 25 mg/dL LAB CHEMISTRY METHOD 12/13/2024 1:28 PM [facility] Creatinine 0.78 0.50 - 1.10 mg/dL LAB CHEMISTRY METHOD 12/13/2024 1:28 PM [facility] eGFR 75 >=60 mL/min/1. 73m2 LAB CHEMISTRY METHOD 12/13/2024 1:28 PM EDT [facility] Comment:Calculation based on the Chronic Kidney Disease Epidemiology Collaboration (CKD-EPI) equation refit without adjustment for race. BUN/Creatinine Ratio 21.8 LAB CHEMISTRY METHOD 12/13/2024 1:28 PM EDT [facility] Calcium 9.2 8.5 - 10.5 mg/dL LAB CHEMISTRY METHOD 12/13/2024 1:28 PM EDT [facility] Blood Venous blood specimen / Unknown Venipuncture / Unknown 12/13/2024 8:07 AM EDT 12/13/2024 9:44 AM EDT Richi Forte MD LAB BLOOD ORDERABLES Final Re sult [facility] [address] [place] [address], * External Colonoscopy Report (10/06/2024 1:54 PM EDT) Anatomical Region Laterality Modality Endoscopy Historical Provider GI~PROCEDURE ORDERABLES F inal Result from Last 3 Months Insurance [facility] MEDIC[facility] Member Subscriber Plan / Payer (Ef fective 2018-Present) Name:Zaria Brownea Relation to Subscriber:Self Name:Jordana Browne Payer ID:[id number] Group ID:[id number] Type:Not on file Address: [place] [address] [address] [phone] Care Teams Fan Runner Relationship Specialty Start Date End Date Leah Nazario MD [address] [place], [place] [phone] PCP - General Internal Medicine 06/21/24
[2024-12-20 10:37] LABS: Alanine Aminotransferase 35 U/L (0-31); Albumin Level 4.1 g/dL (3.5-5.0); Alkaline Phosphatase 77 U/L (39-117); Anion Gap 12 (12-20); Aspartate Amino Transferase 37 U/L (5-31); Blood Urea Nitrogen 14 mg/dL (9-16); Calcium 9.2 mg/dL (8.4-10.2); Carbon Dioxide 29 mmol/L (22-29); Chloride 102 mmol/L (96-108); Cholesterol 134 mg/dL (<200); Estimated Glomerular Filt Rate > 60; HDL Cholesterol 43 mg/dL (>40); Potassium 3.8 mmol/L (3.3-5.1); Sodium 139 mmol/L (135-145); Total Protein 6.8 g/dL (6.5-8.0); Triglycerides 82 mg/dL (<150)
== END 2024-12-20 08:58 | disposition home or self-care (01) ==
LOC: HO.HMGCLDS 08:57
PROVIDERS: PCP Internal Medicine; Visit Provider Internal Medicine
DX: I10 Essential (primary) hypertension (principal); E03.9 Hypothyroidism, unspecified; R73.9 Hyperglycemia, unspecified; K74.3 Primary biliary cirrhosis
CPT/HCPCS: 36415; 80053; 80061; 84443; 85025

== ENCOUNTER 2024-12-27 09:50 | Outpatient (AMB) | payer OTHER, SELFPAY ==
--- OUTSIDE RECORDS SUMMARY | 2024-12-22 07:29 | XMS_ITS | Encounter Summary ---
Author Organization [facility] Address [address] [place] [address] Care Team Providers Care Nat Instructor Name Role Phone eLah Nazario MD Primary Care Provider [phone] Reason for Referral * Imaging (Routine) - Pending Review Specialty Diagnoses / Procedures Referred By Aparna t Referred To Contact Radiology Diagnoses Encounter for screening mammogram for breast cancer Procedures MG Mammo Digital Screening w Neo bilat Sppl, Self Referral [facility] Referral ID Status Reason Start Date Expiration Date V isits Requested Visits Authorized [id number] Pending Review 12/07/2024 12/07/2025 1 1 * Imaging (Routine) - Pending Review Specialty Diagnoses / Procedures Referred By Henriqueac t Referred To Contact Radiology Diagnoses Encounter for screening mammogram for breast cancer Procedures MG Mammo Digital Screening w Neo bilat Sppl, Self Referral [facility] Referral ID Status Reason Start Date Expiration Date V isits Requested Visits Authorized [id number] Pending Review 12/07/2024 12/07/2025 1 1 Reason for Visit * Imaging (Routine) - Pending Review Specialty Diagnoses / Procedures Referred By Aparna t Referred To Contact Radiology Diagnoses Encounter for screening mammogram for breast cancer Procedures MG Mammo Digital Screening w Neo bilat Sppl, Self Referral [facility] Referral ID Status Reason Start Date Expiration Date V isits Requested Visits Authorized [id number] Pending Review 12/07/2024 12/07/2025 1 1 Encounter Details Date Type Department Care Team (Latest Contact Info) Description 12/22/2024 7:29 AM EDT - 12/22/2024 11:59 PM EDT Hospital Encounter [facility] [address] [phone] Encounter for screening mammogram for breast cancer Discharge Disposition: Home or Self Care Social History Tobacco Use Types Packs/Day Years Used Date Smoking Tobacco: Never Smokeless Tobacco: Never Alcohol Use Standard Drinks/Week Comments No 0 (1 standard drink = 0.6 oz pur e alcohol) Comments No Sex and Gender Information Value Date Recorded Sex Assigned at Female 12/01/2024 10:26 PM EDT Legal Sex Female 7:39 PM EST Gender Identity Not on file Sexual Orientation Not on file documented as of this encounter Last Filed Vital Signs Vital Sign Reading Time Taken Comments Blood Pressure - - Pulse - - Temperature - - Respiratory Rate - - Oxygen Saturation - - Inhaled Oxygen Concentration - - Weight 78.9 kg (174 lb) 12/22/2024 7:44 AM EDT Height 152.4 cm (5') 12/22/2024 7:44 AM EDT Body Mass Index 33.98 12/22/2024 7:44 AM EDT documented in this encounter Medications at Time of Discharge ascorbic acid (VITAMIN C) 250 mg tablet Take 1 tablet (250 mg total) by mouth 1 (one) time each day. ascorbic acid,sod/zinc gluc,ox (ZINC AND C ORAL) Take by mouth. aspirin 81 mg EC tablet Take 1 tablet (81 mg total) by mouth 1 (one) time each day. Breztri Aerosphere 160-9-4.8 mcg/actuation HFA aerosol inhaler inhaler Inhale 2 puffs by mouth 2 (two) times a day. 06/20/2024 colchicine (COLCRYS) 0.6 mg tabletIndications :Primary biliary cirrhosis (CMS/HCC V24, CMS/HCC V28) TAKE ONE TABLET BY MOUTH TWICE A DAY 130 tablet 12/02/2024 colchicine (Colcrys) 0.6 mg tabletIndications :Primary biliary cirrhosis (CMS/HCC V24, CMS/HCC V28) Take 1 tablet (0.6 mg total) by mouth 2 (two) times a day. 60 each 11 12/22/2024 12/17/2025 ergocalciferol, vitamin D2, (VITAMIN D2 ORAL) Take by mouth. estradioL (ESTRACE) 0.01 % (0.1 mg/gram) vaginal cream Insert 1 g into the vagina at bedtime. 08/14/2016 hydroCHLOROthiazi de (HYDRODIURIL) 25 mg tablet Take 1 tablet (25 mg total) by mouth 1 (one) time each day. 11/30/2023 levothyroxine (SYNTHROID, LEVOTHROID) 50 mcg tablet Take 1 tablet (50 mcg total) by mouth 1 (one) time each day. montelukast (SINGULAIR) 10 mg tablet Take 1 tablet (10 mg total) by mouth 1 (one) time each day. 05/25/2024 olmesartan (BENICAR) 40 mg tablet Take 1 tablet (40 mg total) by mouth 1 (one) time each day. 11/30/2023 pravastatin (PRAVACHOL) 20 mg tablet Take 1 tablet (20 mg total) by mouth 1 (one) time each day. TURMERIC ORAL Take by mouth. ursodioL (ACTIGALL) 250 mg tabletIndications :Primary biliary cirrhosis (CMS/HCC V24, CMS/HCC V28) TAKE ONE TABLET BY MOUTH FOUR TIMES A DAY 360 tablet 11/30/2024 ursodioL (ASTRID) 250 mg tabletIndications :Primary biliary cirrhosis (CMS/HCC V24, CMS/HCC V28) Take 1 tablet (250 mg total) by mouth 4 (four) times a day. 360 tablet 3 12/22/2024 12/17/2025 documented as of this encounter Discharge Disposition Disposition Code Departure Means Destination Home or Self Care documented in this encounter Plan of Treatment Upcoming Encounters Date Type Department Care Team (Late st Contact Info) Description 12/28/2024 11:00 AM EDT Appointment [facility] CT Scan [address] [place] [phone] 01/31/2025 2:30 PM EDT [facility] [address] [phone] Charmaine Clark MD [address] [place] [address] documented as of this encounter Procedures Procedure Name Priority Date/Time Associated Diagnosis Comments MG MAMMO DIGITAL SCREENING W NEO BILAT Routine 12/22/2024 7:48 AM EDT Encounter for screening mammogram for breast cancer documented in this encounter Results * MG Mammo Digital Screening w Neo bilat (12/22/2024 7:48 AM EDT) Anatomical Region Laterality Modality Breast Bilateral Mammography 12/22/2024 7:52 AM EDT Impressions 12/22/2024 7:56 AM EDT No mammographic evidence of malignancy. A negative mammogram in the presence of a clinically suspicious palpable abnormality does not preclude the possibility of malignancy or alter the indications for biopsy. PQRI CPT II 3342F Code 92508, 11042 PQRI 225 CPT II 7025F TISSUE DENSITY: There are scattered areas of fibroglandular density. (BI-RADS category B) IMPRESSION: Benign. BI-RADS CATEGORY: 2 - BENIGN RECOMMENDATION: Screening bilateral mammogram is recommended in 1 year. Mammo Location: [facility], [facility], [address] [place] [id number] -------- FINAL REPORT -------- Dictated By: Alpesh Augustine Dictated Date: 12/22/2024 07:52 ET Assigned Physician: Alpesh Augustine Reviewed and Electronically Signed By: Alpesh Augustine Signed Date: 12/22/2024 07:56 ET Workstation ID: [id number] Transcribed By: Self Edit Transcribed Date: 12/22/2024 07:52 ET Narrative 12/22/2024 7:56 AM EDT CLINICAL: The patient is a 84 years Female presenting for routine screening mammography. COMPARISON: Most recently 12/21/2023 and most remotely 11/27/2018. TECHNIQUE: Full-field digital mammography of the breasts bilaterally consisting of tomosynthesis in MLO and CC projection is performed in the [employer] 2000-D unit. Computer aided detection utilizing the iCAD system was utilized. FINDINGS: The breasts are again seen to be composed of a combination of fatty and fibroglandular elements. A small cluster of microcalcifications laterally in the left breast is stable. A right breast skin lesion is again seen. A tissue marker is again present inferiorly in the right breast. Bilateral vascular calcifications are again noted. There is no suspicious cluster of microcalcifications, mass, or area of architectural distortion. There is no skin thickening or nipple retraction. Procedure Note Alpesh Augustine MD - 12/22/2024 CLINICAL: The patient is a 84 years Female presenting for routinescreening mammography. COMPARISON: Most recently 12/21/2023 and most remotely 11/27/2018. TECHNIQUE: Full-field digital mammography of the breasts bilaterallyconsisting of tomosynthesis in MLO and CC projection is performed in the[employer] 2000-D unit. Computer aided detection utilizing the Bet[employer]knowystem was utilized. FINDINGS: The breasts are again seen to be composed of a combination offatty and fibroglandular elements. A small cluster of microcalcificationslaterally in the left breast is stable. A right breast skin lesion isagain seen. A tissue marker is again present inferiorly in the rightbreast. Bilateral vascular calcifications are again noted. There is nosuspicious cluster of microcalcifications, mass, or area of architecturaldistortion. There is no skin thickening or nipple retraction. IMPRESSION: No mammographic evidence of malignancy. A negative mammogram in the presence of a clinically suspicious palpableabnormality does not preclude the possibility of malignancy or alter theindications for biopsy. PQRI CPT II 3342F Code 39057, 43271 PQRI 225 CPT II 7025F TISSUE DENSITY: There are scattered areas of fibroglandular density.(BI-RADS category B) IMPRESSION: Benign. BI-RADS CATEGORY: 2 - BENIGN RECOMMENDATION: Screening bilateral mammogram is recommended in 1 year. Mammo Location: [facility], [facility], [address] [place] [phone] -------- FINAL REPORT -------- Dictated By: Alpesh Augustine Dictated Date: 12/22/2024 07:52 ET Assigned Physician: Alpesh Augustine Reviewed and Electronically Signed By: Alpesh Augustine Signed Date: 12/22/2024 07:56 ET Workstation ID: [id number] Transcribed By: Self Edit Transcribed Date: 12/22/2024 07:52 ET us Self Referral Sppl IMG BI PROCEDURES Final Resul t documented in this encounter Visit Diagnoses Diagnosis Encounter for screening mammogram for breast cancer documented in this encounter Care Teams Nat Instructor Relationship Specialty Start Date End Date Leah Nazario MD [address] [place] [address] PCP - General Internal Medicine 06/21/24 documented as of this encounter
--- OUTSIDE RECORDS SUMMARY | 2024-12-22 10:00 | XMS_ITS | Encounter Summary ---
Author Organization [employer] Address [address] [place] [address] Care Team Providers Care Spectrographic Analyst Name Role Phone Leah Nazario MD Primary Care Provider [phone] Encounter Details Date Type Department Care Team ([facility] st Contact Info) Description 12/22/2024 10:00 AM EDT Office Visit Gastroenterology - [address] [place] [address] Richi Forte MD [address] [place] [address] Primary biliary cirrhosis (CMS/HCC V24, CMS/HCC V28) (Primary Dx) Social History Tobacco Use Types Packs/Day Years [...] - Inhaled Oxygen Concentration - - Weight 75.8 kg (167 lb) 12/22/2024 9:41 AM EDT Height 162.6 cm (5' 4 ) 12/22/2024 9:41 AM EDT Body Mass Index 28.67 12/22/2024 9:41 AM EDT documented in this encounter Ordered Prescriptions Prescription Sig Dispense Quantity Refills Last Filled Start Date End Date colchicine (Colcrys) 0.6 mg tabletIndications: Primary biliary cirrhosis (CMS/HCC V24, CMS/HCC V28) Take 1 tablet (0.6 mg total) by mouth 2 (two) times a day. 60 each 11 12/22/2024 12/17/2025 ursodioL (ASTRID) 250 mg tabletIndications: Primary biliary cirrhosis (CMS/HCC V24, CMS/HCC V28) Take 1 tablet (250 mg total) by mouth 4 (four) times a day. 360 tablet 3 12/22/2024 12/17/2025 documented in this encounter Progress Notes * Richi Forte MD - 12/22/2024 10:00 AM EDTAssociated Problem(s): Primary biliary cirrhosis (CMS/HCC V24, CMS/HCC V28) 84-year-old female with longstanding history of primary biliary cholangitis presenting for follow-up. At this time she is doing well. Her liver function studies are normal. Her ultrasound is stable without evidence of mass or obstruction. She appears to be tolerating her medication without issue. She has no specific upper GI or lower GI symptoms. She reported no generalized systemic complaints today. 1. Continue current medication profile. 2. Repeat blood laboratories June 2025. 3. Repeat ultrasound August 2025. 4. Routine follow-up in 1 year. 5. All questions and concerns were addressed. 6. Patient was instructed to contact office with any new issues or concerns. Orders: ursodioL (ASTRID) 250 mg tablet; Take 1 tablet (250 mg total) by mouth 4 (four) times a day. colchicine (Colcrys) 0.6 mg tablet; Take 1 tablet (0.6 mg total) by mouth 2 (two) times a day. * Richi Forte MD - 12/22/2024 10:00 AM EDT PROGRESS NOTE CHIEF COMPLAINT: Primary biliary cholangitis HPI: Jordana Browne is a 84 y.o. old female who was referred to us by Leah Nazario MD presents to the gastroenterology department today for evaluation of primary biliary cholangitis. The patient was accompanied by a family member to help translate. At this time the patient is doing well. She continues forward on her ursodiol 250 mg p.o. 4 times daily and Colcrys 0.6 mg twice daily. She has no side effects from her medication. She denies jaundice, icterus and pruritus. There is no andrew abdominal pain. She denies fatigue, joint pains, dry eyesand dry mouth. There were no rashes. In addition there are no upper GI symptoms such as dyspepsia or dysphagia. There is no change in bowel pattern to include diarrhea, constipation or blood in the stool. Her weight is stable. Her appetite is good. ROS: GENERAL: No malaise, significant weight loss or fever HEENT: No changes in hearing or vision, nose bleeds or swallowing problems NECK: No lumps, goiter, pain or significant neck swelling RESPIRATORY: No cough, wheezing or shortness of breath CARDIOVASCULAR: No chest pain, leg swelling or palpitations GI: As above MUSCULOSKELETAL: No joint pain or swelling, back pain, or muscle pain. SKIN: No lesions, rash or itching The remainder of the review of systems is reviewed and negative. PAST MEDICAL HISTORY: Past Medical History: Diagnosis Date COPD (chronic obstructive pulmonary disease) (CMS/HCC V24, CMS/HCC V28) 01/11/2024 DX:COPD (chronic obstructive pulmonary disease) (HCC) Essential (primary) hypertension 01/11/2024 DX:Essential (primary) hypertension Gallstones 01/11/2024 DX:Gallstones Hyperlipidemia 11/20/2016 DX:Hyperlipidemia Hypothyroidism 01/11/2024 DX:Hypothyroidism Kidney stone 01/12/2020 DX:Kidney stone; COMMENT: 2019 lithotripsy Lumbar spinal stenosis 01/12/2020 DX:Lumbar spinal stenosis Mild intermittent asthma, uncomplicated 01/11/2024 DX:Mild intermittent asthma, uncomplicated Multiple thyroid nodules 01/11/2024 DX:Multiple thyroid nodules Primary biliary cirrhosis (CMS/HCC V24, CMS/HCC V28) 01/11/2024 DX:Primary biliary cirrhosis (HCC) PAST SURGICAL HISTORY: Past Surgical History: Procedure Laterality Date COLONOSCOPY 11/29/2018 PROCEDURE: HISTORICAL COLONOSCOPY COLONOSCOPY 10/2013 EYE SURGERY Bilateral PROCEDURE: HISTORICAL EYE SURGERY; COMMENT: blepharoplasty HERNIA REPAIR PROCEDURE: REPAIR UMBILICAL HERNIA LITHOTRIPSY PROCEDURE: HISTORICAL LITHOTRIPSY STEREOTACTIC CORE BIOPSY SOCIAL HISTORY: Social History Socioeconomic History Marital status: Spouse name: None Number of children: None Years of education: None Highest education level: None Occupational History None Tobacco Use Smoking status: Never Smokeless tobacco: Never Substance and Sexual Activity Alcohol use: No Drug use: No Sexual activity: None Other Topics Concern None Social History Narrative None FAMILY HISTORY: Family History Problem Relation Name Age of Onset Hypertension Brother 2 brothers Hyperthyroidism Daughter MEDICATIONS: Current Outpatient Medications Medication Sig Dispense Refill ascorbic acid (VITAMIN C) 250 mg tablet [...] a day. colchicine (COLCRYS) 0.6 mg tablet TAKE ONE TABLET BY MOUTH TWICE A DAY 130 tablet 0 ergocalciferol, vitamin D2, (VITAMIN D2 ORAL) Take [...] Take by mouth. ursodioL (ACTIGALL) 250 mg tablet TAKE ONE TABLET BY MOUTH FOUR TIMES A DAY 360 tablet 0 colchicine (Colcrys) 0.6 mg tablet Take 1 tablet (0.6 mg total) by mouth 2 (two) times a day. 60 each 11 ursodioL (ASTRID) 250 mg tablet Take 1 tablet (250 mg total) by mouth 4 (four) times a day. 360 tablet 3 No current facility-administered medications for this visit. ALLERGIES: Allergies Allergen Reactions Clonidine Unknown Hydrochlorothiazide Unknown Lisinopril Unknown Naproxen Unknown Penicillins Rash Sulfa (Sulfonamide Antibiotics) PHYSICAL EXAM: Visit Vitals Ht 1.626 m (64 ) Wt 75.8 kg (167 lb) BMI 28.67 kg/m?? OB Status Postmenopausal Smoking Status Never BSA 1.81 m?? APPEARANCE: Alert and in no acute distress EYES: PERRLA, conjunctiva and sclera normal. MOUTH/THROAT: No erythema, exudates or lesions noted NECK: Neck supple, no adenopathy HEART: RRR with normal S1 and S2, no murmurs appreciated LUNG: clear to auscultation LYMPH NODES: grossly normal ABDOMEN: soft non tender, no ascites, guarding, or rebound, no organomegaly. RECTAL: Exam deferred EXTREMITIES: Extremities warm and well perfused NEURO: Awake, alert and oriented x 3, SKIN: Skin color, texture, turgor normal. LABS: Lab Results Component Value Date WBC 5.0 12/13/2024 HGB 13.2 12/13/2024 HCT 40.2 12/13/2024 MCV 86.1 12/13/2024 PLT 226 12/13/2024 Lab Results Component Value Date NA 135 12/13/2024 K 4.2 12/13/2024 CL 102 12/13/2024 CO2 30 12/13/2024 BUN 17 12/13/2024 CREATININE 0.78 12/13/2024 CALCIUM 9.2 12/13/2024 PROT 7.0 12/13/2024 BILITOT 0.5 12/13/2024 ALKPHOS 78 12/13/2024 ALT 43 12/13/2024 AST 36 12/13/2024 GLUCOSE 98 12/13/2024 No results found for: WOUNDCX , BLOODCX , URINECX , CSFCX , AFBCX , MRSA IMAGING: Ultrasound results reviewed in epic. Assessment & Plan Primary biliary cirrhosis (CMS/HCC V24, CMS/HCC V28) 84-year-old female with longstanding history of primary biliary cholangitis presenting for follow-up. At this time she is doing well. Her liver function studies are normal. Her ultrasound is stable without evidence of mass or obstruction. She appears to be tolerating her medication without issue. She has no specific upper GI or lower GI symptoms. She reported no generalized systemic complaints today. 1. Continue current medication profile. 2. Repeat blood laboratories June 2025. 3. Repeat ultrasound August 2025. 4. Routine follow-up in 1 year. 5. All questions and concerns were addressed. 6. Patient was instructed to contact office with any new issues or concerns. Orders: ursodioL (ASTRID) 250 mg tablet; Take 1 tablet (250 mg total) by mouth 4 (four) times a day. colchicine (Colcrys) 0.6 mg tablet; Take 1 tablet (0.6 mg total) by mouth 2 (two) times a day. Follow up in about 1 year (around 12/22/2025). I would like to thank Leah Nazario MD for the opportunity to partake in the patient's care. Board Certified Gastroenterology [facility] W [phone] [address] [email or web address] Richi Forte MD 10:16 AM EDT documented in this encounter Plan of Treatment Upcoming Encounters Date Type Department Care Team (Late st Contact Info) Description 12/28/2024 11:00 AM EDT Appointment [facility] CT Scan [address] [place] [phone] 01/31/2025 2:30 PM EDT [facility] [address] [facility] [address] [place] [id number] Charmaine Clark MD [address] [facility] [address] [place] [address] documented as of this encounter Visit Diagnoses Diagnosis Primary biliary cirrhosis (CMS/HCC V24, CMS/HCC V28)- Primary Biliary cirrhosis documented in this encounter Historical Medications * This list may reflect changes made after this encounter. TURMERIC ORAL Take by mouth. ascorbic acid,sod/zinc gluc,ox (ZINC AND C ORAL) Take by mouth. ergocalciferol, vitamin D2, (VITAMIN D2 ORAL) Take by mouth. ascorbic acid (VITAMIN C) 250 mg tablet Take 1 tablet (250 mg total) by mouth 1 (one) time each day. aspirin 81 mg EC tablet Take 1 tablet (81 mg total) by mouth 1 (one) time each day. added in this encounter Care Teams Spectrographic Analyst Relationship Specialty Start Date End Date Leah Nazario MD [address] [place] [address] PCP - General Internal Medicine 06/21/24 documented as of this encounter
[2024-12-27 10:21] VITALS: BP 120/76; PULSE 61; RESP 18; TEMP 36.8; O2SAT 95; BMI 29.8
--- NOTE | 2024-12-27 10:21 | A.OFFPC_ITS ---
Vital Signs 12/27/24 10:21 Height 5 ft 3 in Weight 168 lb BMI 29.8 BP 120/76 Blood Pressure Location Lt brachial Position Sitting Respiration 18 Pulse 61 Pulse Source Pulse Oximeter Temp 98.2 F Temp Source Oral Pulse Oximetry (%) 95 Oxygen Delivery Method Room Air Intake Visit Reasons: PE Intake Note: Pt is here today for PE. Allergies clonidine (CLONIDINE) Allergy (Unknown, Verified 12/27/24 10:32) UNKNOWN naproxen (NAPROXEN) Allergy (Unknown, Verified 12/27/24 10:32) UNKNOWN penicillin V Allergy (Unknown, Verified 12/27/24 10:32) Itching Penicillins (PENICILLINS) Allergy (Unknown, Verified 12/27/24 10:32) itching Sulfa (Sulfonamide Antibiotics) (SULFA (SULFONAMIDE ANTIBIOTICS)) Allergy (Unknown, Verified 12/27/24 10:32) n/a nifedipine Adverse Reaction (Intermediate, Verified 12/27/24 10:32) leg swelling triamterene Adverse Reaction (Intermediate, Verified 12/27/24 10:32) Fainting umeclidinium (From Anoro Ellipta) Adverse Reaction (Intermediate, Verified 12/27/24 10:32) Cough vilanterol (From Anoro Ellipta) Adverse Reaction (Intermediate, Verified 12/27/24 10:32) Cough lisinopril (LISINOPRIL) Adverse Reaction (Unknown, Verified 12/27/24 10:32) Cough Medication List - Last Reconciled 12/27/24 by Leah Nazario MD amlodipine 5 mg PO DAILY aspirin 81 mg PO DAILY ettghrdtoa-basfddqm-cwusadwvcb 160-9-4.8 mcg/actuation (Breztri Aerosphere) 2 inhalations inhalation BID cetirizine 10 mg PO BEDTIME colchicine 0.6 mg PO BID compr.stocking,thigh,reg,x-lrg 15-25 mmHg econazole nitrate 1% 1 appl topical DAILY estradiol 0.01%(0.1mg/gram) grams vaginal fluticasone propionate 50 mcg/actuation 1 spray intranasal DAILY hydrochlorothiazide 25 mg PO DAILY hydrocortisone 2.5% 1 appl ME BID-QID PRN levothyroxine 50 mcg PO DAILY lidocaine 5% 1 ea topical .QD lidocaine 5% 2 patches topical DAILY olmesartan 40 mg PO DAILY omeprazole 20 mg PO DAILY pravastatin 20 mg PO DAILY triamcinolone acetonide 0.025% appl topical BID triamcinolone acetonide 0.1% 1 appl dental BID ursodiol 1,000 mg PO DAILY Tobacco use date assessed: 12/27/24 Fall risk assessment: No Falls in past year Last assessed Fall Risk: 12/27/24 Dental Screening Dental Screen Date: 07/07/24 HPI PE HPI Details Patient presents for physical. Hypertension COPD hyperlipidemia and hypothyroidism are stable on current medications [facility] Medical History (Updated 12/27/24 @ 11:18 by Leah Nazario MD) Abnormal mammogram of left breast Pain of right thumb Edema Abnormal mammogram Primary biliary cirrhosis Lumbar spinal stenosis Osteoarthritis of left hip Vitamin D deficiency Gallbladder polyp Microscopic hematuria Multinodular goiter HTN (hypertension) Surgical History H/O colonoscopy No pertinent past surgical history Family History Father No problems noted. Mother No problems noted. Social History Housing: House Alcohol intake: never Patient Tobacco Use Status: Never used Tobacco e-Cigarette/Vaping Use: Never Used Second Hand Smoke Exposure: No service: No Current occupational status: retired Current occupation: rt hand Current occupational exposures/hazards: No Cognitive needs: No Hearing needs: No Vision needs: Yes Questionnaire PHQ-9 Over the last 2 weeks, how often have you been bothered by any of the following problems? 1. Little interest or pleasure in doing things: not at all 2. Feeling down, depressed, or hopeless: not at all 3. Trouble falling or staying asleep, or sleeping too much: not at all 4. Feeling tired or having little energy: not at all 5. Poor appetite or overeating: not at all 6. Feeling bad about yourself - or that you are a failure or have let yourself o r your family down: not at all 7. Trouble concentrating on things, such as reading the newspaper or watching television: not at all 8. Moving or speaking so slowly that other people could have noticed. Or the opposite - being so fidgety or restless that you have been moving around a lot more than usual: not at all 9. Thoughts that you would be better off or of hurting yourself in some way: not at all Total score: 0 Depression Screening Interpretation: Negative Depression Screening Done: Yes Source: Developed by Drs. Jaime Alexandre, Shannan aFrah, Francisco Garcia and colleagues, with an educational laura from [employer]. Thrive Questionnaire Date Thrive assessed: 12/27/24 I am a: Patient What is your living situation today?: I have a steady place to live Within the past 12 months, did the food you bought not last and you didn't have the money to get more?: Never true Within the past 12 months, did you worry whether your food would run out before you got money to buy more?: Never true Do you have trouble paying for medicines?: No Do you have trouble getting transportation to medical appointments?: No Do you have trouble paying your heating and electricity bill?: No Do you have trouble taking care of your child, family member or friend?: No Do you have trouble with day-to-day activities such as bathing, preparing meals, shopping, managing finances, etc.?: No Are you currently unemployed and looking for a job?: No Are you interested in more education?: No Please select the resources that you would like help with: None Currently or been in a relationship where the following occur: No concerns reported THRIVE Score: 0 AUDIT C Alcohol Use Questionnaire (AUDIT-C) 1. How often do you have a drink containing alcohol?: Never 3. How often do you have six or more drinks on one occasion?: Never Total Score: 0 MISTY-7 AMB Questionnaire MISTY-7 Date MISTY - 7 assessed: 04/21/24 Feeling nervous, anxious, or on edge: 0 = Not at all Not being able to stop or control worryin = Not at all Worrying too much about different things: 0 = Not at all Trouble relaxin = Not at all Being so restless that it is hard to sit still: 0 = Not at all Becoming easily annoyed or irritable: 0 = Not at all Feeling afraid as if something awful might happen: 0 = Not at all Total MISTY-7 score (0-4 normal; 5-9 mild; 10-14 moderate; 15-21 severe): 0 Source: Developed by Drs. Jaime Alexandre, Shannan Farah, Francisco Garcia and colleagues, with an educational laura from [employer]. Review of Systems Const All systems reviewed & are unremarkable except as noted in HPI and below Eyes Reports no additional complaints ENT Reports no additional complaints Card Reports no additional complaints Resp Reports no additional complaints GI Reports no additional complaints Reports no additional complaints Physical exam (Primary Care) Vital Signs: Last Vital Signs Temp 98.2 F 12/27/24 10:21 Pulse 61 12/27/24 10:21 Resp 18 12/27/24 10:21 BP 120/76 12/27/24 10:21 Pulse Ox 95 12/27/24 10:21 Oxygen Delivery Method Room Air 12/27/24 10:21 BMI result Body Mass Index 29.8 Tobacco/Smoking Status: Tobacco use Status Tobacco use date assessed 12/27/24 12/27/24 10:35 Patient Tobacco Use Status Never used Tobacco 12/27/24 10:21 e-Cigarette/Vaping Use Never Used 12/27/24 10:21 PHQ-9: PHQ-9 Score PHQ-9: Total score 0 12/27/24 10:38 Depression Screening Interpretation: Negative Thrive Assessment: Date of Thrive Assessment Date Thrive assessed 12/27/24 12/27/24 10:38 Currently or been in a relationship where the following occur: No concerns reported Const General: no acute distress HENMT Head: Yes normal to inspection Ears: hearing grossly normal bilaterally Mouth: Normal oral and palatal mucosa present Eyes General: appearance normal, both eyes and all related structures Neck Neck: Yes no lymphadenopathy and Yes supple Resp Effort & Inspection: normal respiratory effort Auscultation: clear to auscultation bilaterally Cardio Rhythm: regular rhythm Heart sounds: S1 normal heart sound present and S2 normal heart sound present GI Inspection: Yes normal to inspection Palpation (GI): Soft to palpation Percussion: Yes normal to percussion Auscultation: normal bowel sounds Coding Level of Care Code Est Pt Prev Care >65y(03354) Diagnoses HTN (hypertension) I10 Hypothyroid E03.9 Primary biliary cirrhosis K74.3 COPD (chronic obstructive pulmonary disease) J44.9 Assessment & Plan Assessment & Plan (1) HTN (hypertension): Code(s): I10 - Essential (primary) hypertension Category: Medical Plan: Continue current medications (2) Hypothyroid: Code(s): E03.9 - Hypothyroidism, unspecified Category: Medical Plan: Continue levothyroxine (3) Primary biliary cirrhosis: Comment: f/u Code(s): K74.3 - Primary biliary cirrhosis Category: Medical Plan: Continue current medications and follow-up with GI (4) COPD (chronic obstructive pulmonary disease): Comment: Established with pulmonology and Allergy Code(s): J44.9 - Chronic obstructive pulmonary disease, unspecified Category: Medical Plan: Continue Breztri inhaler Orders: Orders Comprehensive [place]. Panel Fast 6 Months E03.9 - Hypothyroidism, unspecified, J44.9 - Chronic obstructive pulmonary disease, unspecified, K74.3 - Primary bili rod cirrhosis TSH reflex Free T4 6 Months E03.9 - Hypothyroidism, unspecified, J44.9 - Chronic obstructive pulmonary disease, unspecified, K74.3 - Primary biliary cirrhosis Lipid Panel 6 Months E03.9 - Hypothyroidism, unspecified, J44.9 - Chronic obstructive pulmonary disease, unspecified, K74.3 - Primary biliary cirrhosis
--- OUTSIDE RECORDS SUMMARY | 2024-12-27 12:42 | XMS_ITS | Encounter Summary ---
Author Organization [facility] Address [address] [place] [address] Care Team Providers Care Knife Setter Grinder Machine Name Role Phone Leah Nazario MD Primary Care Provider [phone] Reason for Visit * Reason Onset Date Comments returning call 12/26/2024 Encounter Details Date Type Department Care Team (Late st Contact Info) Description 12/26/2024 Telephone Gastroenterology - [address] [place] [address] Massiel Christiansen MA Social History Tobacco Use Types Packs/Day Years [...] as of this encounter Progress Notes * Caitlyn Drew - 12/26/2024 4:16 PM EDT Pt is calling back. * Massiel Christiansen MA - 12/26/2024 4:03 PM EDT Called pt left vm to call back recall put in * Massiel Christiansen MA - 12/26/2024 4:03 PM EDT ----- Message from Stephie Forte MD sent at 12/21/2024 6:54 AM EDT ----- Please call patient. Ultrasound stable. Placed recall ultrasound in 1 year. You for your help. ----- Message ----- From: Interface, Incoming Ancillary Results - Imaging Results [id number] Sent: 12/20/2024 4:17 PM EDT To: Richi Forte MD documented in this encounter Plan of Treatment Upcoming Encounters Date Type Department Care Team (Late st Contact Info) Description 12/28/2024 11:00 AM EDT Appointment [facility] CT Scan [address] [place] [phone] 01/31/2025 2:30 PM EDT Office Visit Pulmonolgy - [place] [address] [address] Charmaine Clark MD [address] [address] documented as of this encounter Visit Diagnoses Not on filedocumented in this encounter Care Teams Knife Setter Grinder Machine Relationship Specialty Start Date End Date Leah Nazario MD [address] [place] [id number] PCP - General Internal Medicine 06/21/24 documented as of this encounter
--- OUTSIDE RECORDS SUMMARY | 2024-12-27 12:42 | XMS_ITS | Clinical Summary ---
Author Organization 175 [facility] Address [address] [place] [address] Phone Care Team Providers Care Automobile Sales Consultant Name Role Phone Leah Nazario MD Primary Care Provider [phone] Allergies Active Allergy Reactions Criticality Noted Date [...] TWICE A DAY 130 tablet 5 Active aspirin 81 mg EC tablet Take 1 tablet (81 mg total) by mouth 1 (one) time each day. Active ascorbic acid (VITAMIN C) 250 mg tablet Take 1 tablet (250 mg total) by mouth 1 (one) time each day. Active ergocalciferol, vitamin D2, (VITAMIN D2 ORAL) Take by mouth. Active ascorbic acid,sod/zinc gluc,ox (ZINC AND C ORAL) Take by mouth. Active TURMERIC ORAL Take by mouth. Active ursodioL (ASTRID) 250 mg tabletIndicatio ns:Primary biliary cirrhosis (CMS/HCC V24, CMS/HCC V28) Take 1 tablet (250 mg total) by mouth 4 (four) times a day. 360 tablet 3 5 12/18/19 26 Active colchicine (Colcrys) 0.6 mg tabletIndicatio ns:Primary biliary cirrhosis (CMS/HCC V24, CMS/HCC V28) Take 1 tablet (0.6 mg total) by mouth 2 (two) times a day. 60 each 11 5 12/18/19 26 Active ursodioL (ACTIGALL) 250 mg tablet Take [...] her inhalers which I directed to her editor at large. I do not think there is any follow-up imaging that needs to be done and she can follow-up with me on an as-needed basis moving forward. She also had many questions about her thyroid nodule which I also directed her towards her primary care. All questions were answered. Chronic cough 12/17/2023 Sensorineural hearing loss (SNHL) of both ears 0 09/27/2021 Overview (12/21/2024): Sensorineural hearing loss, bilateral; Note: Date Diagnosed: 09/27/2021 10:27 AM (H90.3) Kidney stone 01/12/2020 Overview (01/29/2024): 2019 lithotripsy Lumbar spinal stenosis 01/12/2020 Gallbladder polyp 01/03/2020 Primary biliary cirrhosis ([facility] V24, [facility] V28) 01/03/2020 Assessment & Plan (12/22/2024 10:19 AM EDT): 84-year-old female with longstanding history of primary [...] by mouth 2 (two) times a day. 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 Overview (01/29/2024): S/p QUIROGA Restless legs syndrome 06/08/2012 Dermatophytosis of nail 02/03/2012 Encounters Date Type Department Care Team Description 12/26/2024 Telephone Gastroenterology - [address] [phone] Massiel Christiansen [place] 12/22/2024 10:00 AM EDT Office Visit Gastroenterology - [address] [phone] Richi Forte MD Primary biliary cirrhosis (CMS/HCC V24, CMS/HCC V28) (Primary Dx) 12/22/2024 7:29 AM EDT - 12/22/2024 11:59 PM EDT Hospital Encounter [facility] [address] [place] [phone] Encounter for screening mammogram for breast cancer Discharge Disposition: Home or Self Care 12/22/2024 Telephone Gastroenterology - [address] [phone] Yessi Saunders [place] 12/13/2024 7:01 AM EDT - 12/13/2024 11:59 PM EDT Hospital Encounter [facility] Ultrasound [address] [place] [phone] Primary biliary cirrhosis (CMS/HCC V24, CMS/HCC V28) Discharge Disposition: Home or Self Care 10/03/2024 Telephone Gastroenterology - [address] [facility] [address] [place] [phone] Richi Forte MD from Last 3 Months Surgical History Surgery Date Site/Laterality Comments HERNIA REPAIR PROCEDURE: REPAIR UMBILICAL HERNIA LITHOTRIPSY PROCEDURE: HISTORICAL LITHOTRIPSY EYE SURGERY Bilateral PROCEDURE: HISTORICAL EYE SURGERY; COMMENT: blepharoplasty COLONOSCOPY 11/29/2018 PROCEDURE: HISTORICAL COLONOSCOPY COLONOSCOPY 10/11/2013 - 11/10/2013 STEREOTACTIC CORE BIOPSY Medical History Medical History Date Comments Hyperlipidemia 11/20/2016 DX:Hyperlipidemi a Kidney stone 01/12/2020 DX:Kidney stone; COMMENT: 2019 lithotripsy Lumbar spinal stenosis 01/12/2020 DX:Lumbar spinal stenosis Mild intermittent asthma, uncomplicated 01/11/2024 DX:Mild intermittent asthma, uncomplicated COPD (chronic obstructive pu lmonary disease) (CMS/HCC V24, CMS/HCC V28) 01/11/2024 DX:COPD (chronic o bstructive pulmonary disease) ([facility]) Essential (primary) hypertension 01/11/2024 DX:Essential (primary) hypertension [...] Sexual Orientation Not on file Obstetrics History Para Term AB IAB SAB Ectopic Multiple Livin g Live Births 4 Last Filed Vital Signs Vital Sign Reading Time Taken Comments Blood Pressure 118/72 06/21/2024 10:07 AM EDT Pulse 65 06/21/2024 10:07 AM EDT Temperature 35.9 C (96.7 F) 06/21/2024 10:07 AM EDT Respiratory Rate 16 06/21/2024 10:07 AM EDT Oxygen Saturation 97% 06/21/2024 10:07 AM EDT Inhaled Oxygen Concentration - - Weight 75.8 kg (167 lb) 12/22/2024 9:41 AM EDT Height 162.6 cm (5' 4 ) 12/22/2024 9:41 AM EDT Body Mass Index 28.67 12/22/2024 9:41 AM EDT Plan of Treatment Upcoming Encounters Date Type Department Care Team ([facility] st Contact Info) Description 12/28/2024 11:00 AM EDT Appointment [facility] CT Scan [address] [place] [phone] 01/31/2025 2:30 PM EDT Office Visit Pulmonolgy - [place] 175 [facility] [address] [place] [phone] Charmaine Clark MD [address] [address] Health Maintenance Due Date Last Done Comments [...] Encounter for screening mammogram for breast cancer CBC WITH AUTO DIFFERENTIAL Routine 12/13/2024 8:07 [...] Primary biliary cirrhosis (CMS/HCC V24, CMS/HCC V28) US ABDOMEN LIMITED Routine 12/13/2024 7: 44 AM EDT Primary biliary cirrhosis (CMS/HCC V24, CMS/HCC V28) EXTERNAL COLONOSCOPY REPORT Routine 10/06/2024 1:54 PM EDT from Last 3 Months Results * MG Mammo Digital Screening w [...] for biopsy. PQRI CPT II 3342F Code 16907, 51016 PQRI 225 CPT II 7025F TISSUE DENSITY: There are scattered areas of fibroglandular density. (BI-RADS category B) IMPRESSION: Benign. BI-RADS CATEGORY: 2 - BENIGN RECOMMENDATION: Screening bilateral mammogram is recommended in 1 year. Mammo Location: [facility], [facility], [address] [place] [address] -------- FINAL REPORT -------- Dictated By: Alpesh Augustine Dictated Date: 12/22/2024 07:52 ET Assigned Physician: Alpesh Augustine Reviewed and Electronically Signed By: Alpesh Augustine Signed Date: 12/22/2024 07:56 ET Workstation ID: [id number] Transcribed By: Self Edit Transcribed Date: 12/22/2024 07:52 ET Narrative 12/22/2024 7:56 AM EDT CLINICAL: The patient is a 84 years Female presenting for routine screening mammography. COMPARISON: Most recently 12/21/2023 and most remotely 11/27/2018. TECHNIQUE: Full-field digital mammography of the breasts bilaterally consisting of tomosynthesis in MLO and CC projection is performed in the [employer] 2000-D unit. Computer aided detection utilizing the [...] MLO and CC projection is performed in the[employer]ide Limited Release [employer] Distribution Fundographe 2000-D unit. Computer aided detection utilizing the Education Everytimeystem was utilized. FINDINGS: The breasts are again [...] for biopsy. PQRI CPT II 3342F Code 54100, 42061 PQRI 225 CPT II 7025F TISSUE DENSITY: There are scattered areas of fibroglandular density.(BI-RADS category B) IMPRESSION: Benign. BI-RADS CATEGORY: 2 - BENIGN RECOMMENDATION: Screening bilateral mammogram is recommended in 1 year. Mammo Location: [facility], [facility], [address] [place] [id number] -------- FINAL REPORT -------- Dictated By: Alpesh Augustine Dictated Date: 12/22/2024 07:52 ET Assigned Physician: Alpesh Augustine Reviewed and Electronically Signed By: Alpesh Augustine Signed Date: 12/22/2024 07:56 ET Workstation ID: [id number] Transcribed By: Self Edit Transcribed Date: 12/22/2024 07:52 ET us Self Referral Sppl IMG BI PROCEDURES Final Resul t * (ABNORMAL) CBC auto differential (12/13/2024 8:07 AM EDT) [facility] WBC 5.0 4.8 - 10.8 K/mcL LAB HEMETOLOGY METHOD 12/13/2024 9:56 AM EDT [facility] RBC 4.70 3.80 - 4.80 M/mcL LAB HEMETOLOGY METHOD 12/13/2024 9:56 AM EDT [facility] Hemoglobin 13.2 11.5 - 16.0 g/dL LAB HEMETOLOGY METHOD 12/13/2024 9:56 AM [facility] Hematocrit 40.2 35.0 - 47.0 % LAB HEMETOLOGY [facility]24 [facility] MCV 86.1 79.0 - 98.0 FL LAB HEMETOLOGY METHOD 12/13/2024 9[facility] MCH 28.3 27.0 - 32.0 pcg LAB HEMETOLOGY METHOD 12/13/2024 9:56 AM [facility] MCHC 32.8 32.0 - 37.0 g/dL LAB HEMETOLOGY METHOD 12/13/2024 9:[facility] RDW 14.4 11.0 - 15.0 % LAB HEMETOLOGY METHOD 12/13/2024 9:[facility] Platelets 226 130 - 400 K/mcL LAB HEMETOLOGY METHOD 12/13/2024 9:56 AM [facility] MPV 11.6(H) 7.0 - 11.0 FL LAB HEMETOLOGY METHOD 12/13/2024 9:56 AM EDT [facility] NRBC 0.0 <1.0 % LAB HEMETOLOGY METHOD 12/13/2024 9:56 AM [facility] NRBC Absolute 0.00 <0.10 K/mcL LAB HEMETOLOGY METHOD 12/13/2024 9:56 AM [facility] Neutrophils Relative 57.1 % LAB HEMETOLOGY METHOD 12/13/2024 9:56 AM [facility] Lymphocytes Relative 26.0 % LAB HEMETOLOGY METHOD 12/13/2024 9:56 AM [facility] Monocytes Relative 10.3 % LAB HEMETOLOGY METHOD 12/13/2024 9:56 AM [facility] Eosinophils Relative 5.6 % LAB HEMETOLOGY METHOD 12/13/2024 9:56 AM [facility] Basophils Relative 0.6 % LAB HEMETOLOGY METHOD 12/13/2024 9:56 AM [facility] Immature Granulocytes Relative 0.4 % LAB HEMETOLOGY METHOD 12/13/2024 9:56 AM [facility] Neutrophils Absolute 2.87 1.50 - 7.00 K/mcL LAB HEMETOLOGY METHOD 12/13/2024 9:56 AM [facility] Lymphocytes Absolute 1.31 1.00 - 5.00 K/mcL LAB HEMETOLOGY METHOD 12/13/2024 9:56 AM [facility] Monocytes Absolute 0.52 0.20 - 1.00 K/mcL LAB HEMETOLOGY METHOD 12/13/2024 9:56 AM [facility] Eosinophils Absolute 0.28 0.00 - 0.50 K/mcL LAB HEMETOLOGY METHOD 12/13/2024 9:56 AM [facility] Basophils Absolute 0.03 0.00 - 0.20 K/mcL LAB HEMETOLOGY METHOD 12/13/2024 9:56 AM EDT [facility] Immature Granulocytes Absolute 0.02 0.00 - 0.03 K/mcL LAB HEMETOLOGY METHOD 12/13/2024 9:56 AM EDT [facility] Blood Venous blood specimen / Unknown Venipuncture / Unknown 12/13/2024 8:07 AM EDT 12/13/2024 9:44 AM EDT Richi Forte MD LAB BLOOD ORDERABLES Final Re sult Performing Organization Address [facility] Co de Phone Number [facility] [address] [place] [address], * Alpha fetoprotein tumor marker (12/13/2024 8:07 AM EDT) Pathologist [facility] AFP <2.5 0.0 - 8.0 ng/mL LAB CHEMISTRY METHOD 12/13/2024 2:37 PM EDT [facility] Blood Venous blood specimen / Unknown Venipuncture / Unknown 12/13/2024 8:07 AM EDT 12/13/2024 9:44 AM EDT Narrative [facility] - 12/13/2024 2:37 PM EDT The Siemens Advia Centaur Chemiluminescent Immunoassay is used. Results obtained with different assay methods or kits cannot be used interchangeably. Results cannot be interpreted as absolute evidence of the presence or absence of malignant disease. Richi Forte MD LAB BLOOD ORDERABLES Final Re sult Performing Organization Address [facility] Co de Phone Number [facility] [address] [place] [address], * Hepatic function panel (12/13/2024 8:07 AM EDT) Pathologist [facility] Total Protein 7.0 6.0 - 8.0 g/dL LAB CHEMISTRY METHOD 12/13/2024 1:28 PM EDT [facility] Albumin 3.7 3.2 - 5.0 g/dL LAB CHEMISTRY METHOD 12/13/2024 1:28 PM EDT [facility] Total Bilirubin 0.5 0.0 - 1.4 mg/dL LAB CHEMISTRY METHOD 12/13/2024 1:28 PM EDT [facility] Bilirubin, Direct 0.2 0.0 - 0.3 mg/dL LAB CHEMISTRY METHOD 12/13/2024 1:28 PM EDT [facility] Bilirubin, Indirect 0.3 0.0 - 1.1 mg/dL LAB CHEMISTRY METHOD 12/13/2024 1:28 PM [facility] ALT (SGPT) 43 10 - 60 unit/L LAB CHEMISTRY METHOD 12/13/2024 1:28 PM [facility] AST (SGOT) 36 10 - 42 unit/L LAB CHEMISTRY METHOD 12/13/2024 1:28 PM [facility] Alkaline Phosphatase 78 42 - 121 unit/L LAB CHEMISTRY METHOD 12/13/2024 1:28 PM [facility] Blood Venous blood specimen / Unknown Venipuncture / Unknown 12/13/2024 8:07 AM EDT 12/13/2024 9:44 AM EDT us Richi Forte MD LAB BLOOD ORDERABLES Final Re sult [facility] [address] [place] [address], [place] [phone] * Basic metabolic panel (12/13/2024 8:07 AM EDT) Sodium 135 133 - 145 mmol/L LAB CHEMISTRY METHOD 12/13/2024 1:28 PM [facility] Potassium 4.2 3.5 - 5.5 mmol/L LAB CHEMISTRY METHOD 12/13/2024 1:28 PM EDT [facility] Chloride 102 96 - 110 mmol/L LAB CHEMISTRY METHOD 12/13/2024 1:28 PM EDT [facility] CO2 30 21 - 32 mmol/L LAB CHEMISTRY METHOD 12/13/2024 1:28 PM [facility] Anion Gap 3 3 - 11 LAB CHEMISTRY METHOD 12/13/2024 1:28 PM [facility] Glucose 98 70 - 100 mg/dL LAB CHEMISTRY METHOD 12/13/2024 1:28 PM [facility] BUN 17 5 - 25 mg/dL LAB CHEMISTRY METHOD 12/13/2024 1:28 PM [facility] Creatinine 0.78 0.50 - 1.10 mg/dL LAB CHEMISTRY METHOD 12/13/2024 1:28 PM [facility] eGFR 75 >=60 mL/min/1. 73m2 LAB CHEMISTRY METHOD 12/13/2024 1:28 PM [facility] Comment:Calculation based on the Chronic Kidney Disease Epidemiology Collaboration (CKD-EPI) equation refit without adjustment for race. BUN/Creatinine Ratio 21.8 LAB CHEMISTRY METHOD 12/13/2024 1:28 PM [facility] Calcium 9.2 8.5 - 10.5 mg/dL LAB CHEMISTRY METHOD 12/13/2024 1:28 PM [facility] Blood Venous blood specimen / Unknown Venipuncture / Unknown 12/13/2024 8:07 AM EDT 12/13/2024 9:44 AM EDT us Richi Forte MD LAB BLOOD ORDERABLES Final Re sult [facility] [address] [place] [address], [place] [phone] * US Abdomen Limited (12/13/2024 7:44 AM EDT) Anatomical Region Laterality Modality Body Ultrasound 12/20/2024 4:10 PM EDT Impressions 12/20/2024 4:12 PM EDT No liver mass detected sonographically. -------- FINAL REPORT -------- Dictated By: Samantha Trinh Dictated Date: 12/20/2024 16:10 ET Assigned Physician: Samantha Trinh Reviewed and Electronically Signed By: Samantha Trinh Signed Date: 12/20/2024 16:12 ET Workstation ID: [id number] Transcribed By: Self Edit Transcribed Date: 12/20/2024 16:10 ET Narrative 12/20/2024 4:12 PM EDT Exam: US ABDOMEN LIMITED Date of Study: 12/13/2024 7:16 AM CLINICAL INFORMATION: primary biliary cirrhosis TECHNIQUE: Real-time ultrasound scanning of the region of interest performed by the pumping station supervisor. Roofing Tile Sorter static images and video clips are submitted for review. FINDINGS: IVC is unremarkable. The visualized portions of the pancreas are unremarkable. The liver measures 16.5 cm with heterogenous echotexture. Normal directional flow within the portal vein. Gallbladder is contracted with possible sludge. There is associated mild wall thickening. The common bile duct measures up to 7 mm. Absent sonographic Marr's sign. The right kidney measures 8.6 cm by this mass or hydronephrosis. The spleen measures 7.6 cm. No ascites. Procedure Note Samantha Trinh MD - 12/20/2024 Exam: US ABDOMEN LIMITED Date of Study: 12/13/2024 7:16 AM CLINICAL INFORMATION: primary biliary cirrhosis TECHNIQUE: Real-time ultrasound scanning of the region of interestperformed by the pumping station supervisor. Roofing Tile Sorter static images and video clipsare submitted for review. FINDINGS: IVC is unremarkable. The visualized portions of the pancreas areunremarkable. The liver measures 16.5 cm with heterogenous echotexture.Normal directional flow within the portal vein. Gallbladder is contractedwith possible sludge. There is associated mild wall thickening. Thecommon bile duct measures up to 7 mm. Absent sonographic Marr's sign.The right kidney measures 8.6 cm by this mass or hydronephrosis. Thespleen measures 7.6 cm. No ascites. IMPRESSION: No liver mass detected sonographically. -------- FINAL REPORT -------- Dictated By: Samantha Trinh Dictated Date: 12/20/2024 16:10 ET Assigned Physician: Samantha Trinh Reviewed and Electronically Signed By: Samantha Trinh Signed Date: 12/20/2024 16:12 ET Workstation ID: [id number] Transcribed By: Self Edit Transcribed Date: 12/20/2024 16:10 ET us Richi Forte MD IM US PROCEDURES Final Resul t * External Colonoscopy Report (10/06/2024 1:54 PM EDT) Anatomical Region Laterality Modality Endoscopy us Historical Provider GI~PROCEDURE ORDERABLES F inal Result from Last 3 Months Insurance [employer] MEDICARE Member Subscriber Plan / Payer (Ef fective 2018-Present) Name:Jordana Browne Relation to Subscriber:Self Name:Jordana Browne Payer ID:[id number] Group ID:[id number] Type:Not on file Address: [place] [address] [address] [address] Care Teams Automobile Sales Consultant Relationship Specialty Start Date End Date Leah Nazario MD [facility] [place] [address] PCP - General Internal Medicine 06/21/24
--- OUTSIDE RECORDS SUMMARY | 2024-12-27 12:42 | XMS_ITS | Encounter Summary ---
Author Organization [email or web address] Address [address] [place] [address] Care Team Providers Care Lumber Buyer Name Role Phone Leah Nazario MD Primary Care Provider [phone] Encounter Details Date Type Department Care Team (Late st Contact Info) Description 12/22/2024 Telephone Gastroenterology - [address] [place] [phone] Yessi Saunders MA Social History Tobacco Use Types Packs/Day [...] as of this encounter Progress Notes * Michelle Wallace - 12/22/2024 4:24 PM EDT RECALL ADDED * Yessi Saunders MA - 12/22/2024 10:17 AM EDT ----- Message from Stephie Forte MD sent at 12/22/2024 10:11 AM EDT ----- Follow up 1 year documented in this encounter Plan of Treatment Upcoming Encounters Date Type Department Care Team (Late st Contact Info) Description 12/28/2024 11:00 AM EDT Appointment [facility] CT Scan [address] [place] [phone] 01/31/2025 2:30 PM EDT Office Visit Pulmonolgy - [place] 175 [facility] [address] [place] [phone] Charmaine Clark MD [address] [phone] documented as of this encounter Visit Diagnoses Not on filedocumented in this encounter Care Teams Lumber Buyer Relationship Specialty Start Date End Date Leah Nazario MD [facility] [place] [address] PCP - General Internal Medicine 06/21/24 documented as of this encounter
== END 2024-12-27 11:28 | disposition home or self-care (01) ==
LOC: HO.HMCC 09:51
PROVIDERS: PCP Internal Medicine; Visit Provider Internal Medicine
DX: Z00.00 Encounter for general adult medical examination without abnormal findings (principal); K74.3 Primary biliary cirrhosis; J44.9 Chronic obstructive pulmonary disease, unspecified; I10 Essential (primary) hypertension; E03.9 Hypothyroidism, unspecified

== ENCOUNTER → 2024-12-27 09:50 | Outpatient (BNVA) | payer OTHER, SELFPAY | PROVIDERS: PCP Internal Medicine; Visit Provider Internal Medicine | DX: Z00.00 Encounter for general adult medical examination without abnormal findings (principal); J44.9 Chronic obstructive pulmonary disease, unspecified; E78.5 Hyperlipidemia, unspecified; E03.9 Hypothyroidism, unspecified; I10 Essential (primary) hypertension; K74.3 Primary biliary cirrhosis | CPT/HCPCS: 96127; 99397 ==